=== PATIENT | female | born 1995 | race Caucasian/White ===

== ENCOUNTER 2024-07-12 12:50 | Outpatient (CLI) | payer OTHER, SELFPAY ==
--- NOTE | 2024-07-12 13:20 | ECG_ITS ---
Test Date: 2024-07-12 13:28:54 Measurements Intervals Banner Rate: 92 P: 48 SC: 147 QRS: 43 QRSD: 89 T: -7 QT: 344 QTc: 426 Interpretive Statements SINUS RHYTHM MODERATE T-WAVE ABNORMALITY, CONSIDER ANTERIOR ISCHEMIA [-0.1+ mV T WAVE IN V3/V4] No previous ECG available for comparison Electronically Signed On 07-12-2024 14:30:25 BRICK SHADER by Roby Lee M.D.
[2024-07-12 13:44] LABS: Hematocrit 41.8 % (37.0-47.0); Hemoglobin 13.9 g/dL (12.0-15.0); Mean Corpuscular HGB Conc 33.3 g/dl (32-36); Mean Corpuscular Hemoglobin 30.1 pg (26-34); Mean Corpuscular Volume 90.5 fl (80-100); Mean Platelet Volume 9.6 fl (7.4-10.4); Platelet Count Result 361 k/mm3 (150-375); Red Blood Count 4.62 M/mm3 (4.2-5.4); Red Cell Distribution Width 12.7 % (11.5-14.5); White Blood Count 6.4 K/mm3 (4.5-10.0)
[2024-07-12 13:54] LABS: Anion Gap 5 mmol/L (4-12); Blood Urea Nitrogen 19 mg/dL (7-17); Calcium 9.6 mg/dL (8.4-10.2); Carbon Dioxide 29 mmol/L (22-30); Chloride 102 mmol/L (98-107); Estimated Glomerular Filt Rate > 60; Glucose 176 mg/dL (65-110); Potassium 3.8 mmol/L (3.4-5.0); Sodium 136 mmol/L (137-145)
[2024-07-12 13:57] LABS: Add Urine Microscopic? NO; Appearance Urine Clear (Clear); Bilirubin Urine Negative (Negative); Blood Urine Negative (Negative); Color Urine Yellow (Yellow); Glucose Urine UA Negative (Negative); Ketones Urine Negative (Negative); Leukocyte Esterase Ur Negative LEU/UL (Negative); Nitrate Urine Negative (Negative); Protein Urine Negative (Negative); Specific Grav Ur 1.022 (1.001-1.035); Urobilinogen Urine 0.2 mg/dL (<2.0); pH Urine 5.5 (5.0-9.0)
[2024-07-12 13:58] LABS: Prothrombin Time 13.8 Seconds (11.1-14.7)
[2024-07-12 13:59] LABS: Partial Thromboplastin Time 23.8 Seconds (22.3-36.8)
[2024-07-12 14:00] LABS: Hemoglobin A1C 6.2 % (<5.7)
== END 2024-07-12 12:51 | disposition home or self-care (01) ==
LOC: ANHSURGERY 12:53
PROVIDERS: PCP Student in an Organized Health Care Education/Training Program; Visit Provider Neurological Surgery
DX: Z01.818 Encounter for other preprocedural examination (principal)
CPT/HCPCS: 36415; 80048; 81003; 83036; 85027; 85610; 85730; 93005

== ENCOUNTER 2024-07-16 01:54 | Day surgery (SDC) | payer OTHER, SELFPAY ==
[2024-07-07 11:43] VITALS: BMI 31.6
--- NOTE | 2024-07-07 11:51 | PC.NURSE ---
Report to the Outpatient Waiting Room, entrance under the green pavilion located off [facility], at time _0600_ on date _[id number]_. Planned Procedure Time: _0730_.? Time changes happen often and if your time is changed the preop area will call you the afternoon before. - You and your visitor will be asked to self-screen and do not enter if you have any COVID symptoms. Please call surgeon if you need to reschedule. - A mask is optional within the hospital at this time. Patients may have clear liquids (water, carbonated beverages, clear teas, apple juice) until 3 hours prior to surgery with a maximum of 20 ounces. - No food from midnight until time of surgery and no smoking. This includes no chewing gum, candy or mints. Take only the following medications with a SIP of water on the morning of surgery: __Levothyroxine and Buspirone DO NOT STOP ANY OF YOUR OTHER PRESCRIPTION MEDICATIONS PRIOR TO SURGERY EXCEPT THE FOLLOWING Medications to discontinue per physician ____No Humalog insulin evening before and morning of surgery. OK to take Lantus night before surgery.____ Please no make-up, nail amharic, hairspray, perfume, deodorant, or body powder the day of surgery.? No jewelry (including any body piercings) or valuables the day of surgery, leave them at home.? Please take a shower or bath the night before, or the morning of, surgery with an antibacterial soap.? Wear comfortable, loose fitting clothing.? - Jewelry must be removed prior to entering the operating room.? Rings and piercings that are not removed may be cut off. - The hospital will not accept responsibility for valuables.? - Please leave all valuables, including medications, at home the day of surgery. If you are going home after surgery, a licensed city bus driver must drive you home.? - NO public transportation without another adult if you receive anesthesia. - We recommend that an adult stay with you for 24 hours following discharge. - We also recommend that you do not drive, make important decision, drink alcoholic beverages, or take any drugs that were not prescribed by your health care provider for at least 24 hours after your discharge time. Follow any additional instructions given to you from your surgeon. Telephone instructions given to _Katy_and asked if any additional questions and then verbalized understanding. Patient advised to call surgeon office or pre surgery nurse liaison [phone] if any additional questions.
[2024-07-16] VITALS (9 sets, daily range): BP systolic 115–141; BP diastolic 65–93; PULSE 77–103; RESP 12–16; TEMP 36.3–36.7; O2SAT 99–100
--- NOTE | ~2024-07-16 | XR_ITS ---
EXAMINATION: XR fluoroscopy no charge DATE: 07/16/2024 09:17 INDICATION: Lumbar stenosis. Herniated disc. TECHNIQUE: A single lateral intraoperative fluoroscopic view of the lumbar spine was obtained. I was not present. Fluoroscopy exposure time was 5 seconds. COMPARISON: None. FINDINGS: There is mild lumbar spondylosis. An instrument overlies the posterior elements at L5-S1. IMPRESSION: 1. Mild lumbar spondylosis. Reviewed, dictated and finalized at location A. CTION MACHINE OPERATOR IMPRESSION: 1. Mild lumbar spondylosis.
[2024-07-16 06:54] LABS: Glucose Point of Care 129 mg/dl (65-105)
--- NOTE | 2024-07-16 07:01 | WPDHPUPDATE1 ---
History and Physical Update Update Date/Time: 07/16/24 07:01 History and Physical has been reviewed, including an updated exam of the patient. There are NO changes in the patient's condition. Risks, benefits, and alternatives have been discussed and questions answered. Patient agrees to proceed with procedure.
[2024-07-16] MEDS: LACTATED RINGERS 1,000 ML 30 ML IV CONT ×2 (07:05→09:11)
--- NOTE | 2024-07-16 07:19 | P.PNAN_ITS ---
Anes - Initial Pre Proc Eval Procedure: Operation Date: 07/16/24 07:30 Proposed Procedures p L5-S1, Bilateral Laminectomy and Discectomy - Jean Marie Schumacher MD Date/Time: 07/16/24 07:19 Surgeon: Jean Marie Schumacher MD Pre Op Diagnosis: lumbar stenosis, herniated disc Patient Data Age: 28 Gender: F Height: 1.65 m Weight: 83.3 kg Last Vital Signs Temp 36.3 C L 07/16/24 07:18 Pulse 92 07/16/24 07:18 Resp 16 07/16/24 07:18 BP 132/79 07/16/24 07:18 Pulse Ox 100 07/16/24 07:18 O2 Del Method Room Air 07/16/24 07:18 Allergies Allergy/AdvReac Type Severity Reaction Status Date / Time NSAIDS (Non-Steroidal AdvReac Intermediate Unknown Verified 07/07/24 11:41 Anti-Inflamma Home Medications Medication Instructions Recorded Confirmed Type amitriptyline 25 mg tablet 25 mg PO QHS 06/11/24 07/16/24 History buspirone 15 mg tablet 15 mg PO TID 06/11/24 07/16/24 History cyclobenzaprine 10 mg tablet 10 mg PO TID 06/11/24 07/16/24 History fenofibrate 160 mg tablet 160 mg PO DAILY 06/11/24 07/16/24 History insulin glargine 100 unit/mL (3 15 unit subcut QAM 06/11/24 07/16/24 History mL) subcutaneous pen (Lantus Solostar U-100 Insulin) insulin lispro 100 unit/mL 1 sliding scale dose subcut 06/11/24 07/16/24 History subcutaneous cartridge (Humalog USEASDIRECTD U-100 Insulin) levothyroxine 125 mcg capsule 125 mcg PO DAILY 06/11/24 07/16/24 History losartan 25 mg tablet 25 mg PO DAILY 06/11/24 07/16/24 History metformin 1,000 mg tablet 1,000 mg PO BID 06/11/24 07/16/24 History pantoprazole 40 mg tablet,delayed 40 mg PO QHS 06/11/24 07/16/24 History release semaglutide 2 mg/dose (8 mg/3 mL) 2 mg subcut WEEKLY 06/11/24 07/16/24 History subcutaneous pen injector (Ozempic) sertraline 100 mg tablet 100 mg PO DAILY 06/11/24 07/16/24 History Laboratory Tests 07/16/24 06:51 POC Capillary Glucose 129 H mg/dl (65-105) Patient hx anesthesia problems: none Family hx anesthesia problems: none Results Review: All pre-operative results and documents have been reviewed as part of the pre- operative evaluation. [facility] Past Medical History Medical History Asthma Depression Diabetes Fibromyalgia GERD (gastroesophageal reflux disease) Hypolipidemia Kidney disease Migraines Thyroid disorder Social History Social History Smoking status: Never smoker Substance use: never Living arrangements: with family Spiritual care concerns: No Anes - Eval Final PreProcedure Day of Procedure 07/16/24 07:19 Patient weight: obese Heart: regular rate and rhythm Lungs: clear to auscultation Airway: Mallampati scale class II Neurological: alert and oriented Last oral intake: >/= 8 hours ASA classification: III Emergent: no Anesthetic plan: proceed Anesthesia type and monitoring: general ETT and standard monitoring Results Review: All pre-operative results and documents have been reviewed as part of the pre- operative evaluation. Informed Consent: The patient's anesthetic plan and its attendant risks and benefits were discussed with the patient/family/POA. Questions were solicited and answers provided to the satisfaction of the patient/family/POA.
[2024-07-16] MEDS: ceFAZolin 2 GM/D5W 50 ML 2 GM/50 ML BAG IVPB (07:23)
[2024-07-16 07:30] LABS: BEDSIDEPREGUCG Negative (Negative)
[2024-07-16] MEDS: LIDO 1%/EPINEPHRINE 1:100,000 50 ML VIAL 10 ML INFILTRATE (08:06)
[2024-07-16 09:19] LABS: Glucose Point of Care 204 mg/dl (65-105)
[2024-07-16 09:19] LABS: Glucose Point of Care 203 mg/dl (65-105)
[2024-07-16] MEDS: INSULIN HUMAN REGULAR (*BKC) 100 UNITS/ML 6 UNITS IV PUSH (09:25)
[2024-07-16] MEDS: oxyCODONE HCL (*CRX) 5 MG TAB IR PO (10:20)
--- NOTE | 2024-07-16 10:25 | SUR.PHASEII ---
Dr. Schumacher aware of minimal drainage and said to apply gauze and tape. Then to instruct patient to remove dressing tomorrow.
[2024-07-16 10:36] LABS: Glucose Point of Care 178 mg/dl (65-105)
--- NOTE | 2024-07-16 13:12 | W.PM.PROC2 ---
Procedure Note - Detailed Date of Procedure 07/16/24 Pre-op Diagnosis lumbar stenosis, herniated disc Post-op Diagnosis Same Procedure Performed Bilateral lumbar laminectomy, left-sided L5-S1 microdiskectomy, Use of operating microscope with microdissection 99904, [id number] Surgeon Jean Marie Schumacher MD Anesthesia General Indications lumbar radiculopathy Findings large disc herniation Description of Procedure patient was brought into the operating room turned over Anesthesia intubation. Once this was complete she was positioned onto the Delio frame and all bony prominences were padded. Delio frame was cranked so that she was placed into flexion. Fluoroscopy was brought in and confirmed the L5-S1 level an incision was marked. Patient was then sterilely prepped and draped in the usual fashion. Final time-out was performed to indicate correct patient procedure and site. Following this local anesthetic was placed along the incision line. I then made a midline incision and used Bovie electrocautery to move through the subcutaneous fat to the fascia. This was then opened and the soft tissue was displaced from the lamina and retractors were were placed. At this point fluoroscopy was brought in again and the L5-S1 was again localized with a upgoing curette underneath the lamina of L5. I then brought in the microscope used it for the remainder of the case. The curette was removed and right curettes were used to remove the spinous process and an upgoing curette was used to move underneath the lamina. Curettes were then used to open up the lamina bilaterally. Once the ligamentum flavum was removed i.e. immediately noticed the thecal sac and the disc herniation on the left side. I had attempted to create a plane over the disc herniation and underneath the thecal sac however the thecal sac was very adherent to the disc therefore I chose to bipolar cauterize the disc and entered the disc with an 11 blade this was then removed in piecemeal to debulk the center of the disc. Care was taken to not go too deep as the traversing S1 nerve root was beneath the disc herniation. I was able to carefully remove several large portions of disc at which point I was able to mobilize the shell of the disc and free it from the traversing S1 nerve root the left side. I then used a nerve hook to go above and below disc to folded in and again removed additional disc bulge. At this point the disc was mostly removed there were some small fragments that I was unable to as was very adherent to the dura the thecal sac and the traversing left S1 nerve root were free from compression. The wound was irrigated hemostasis was obtained and wound was closed in layers. The patient was then turned over to anesthesia for extubation. There were no complications during the surgery. Estimated Blood Loss 50 [facility] Billing Surgery - Charge Forward: Surgery Billing
== END 2024-07-16 11:00 | disposition home or self-care (01) ==
PROVIDERS: PCP Student in an Organized Health Care Education/Training Program; Visit Provider Neurological Surgery
PROC: (CPT 63005; principal; 2024-07-16 07:30)
DX: M51.16 Intervertebral disc disorders with radiculopathy, lumbar region (principal); M48.061 Spinal stenosis, lumbar region without neurogenic claudication; E11.9 Type 2 diabetes mellitus without complications; Z79.4 Long term (current) use of insulin; Z79.84 Long term (current) use of oral hypoglycemic drugs
CPT/HCPCS: 63047; 82948; 99199; A9270; J0690; J1100; J1171; J1200; J1815; J2004; J2250; J2405; J2704; J3010; J7120

== ENCOUNTER 2024-10-05 13:46 | Outpatient (CLI) | payer OTHER, SELFPAY ==
--- OUTSIDE RECORDS SUMMARY | 2024-10-05 15:47 | XMS_ITS | Encounter Summary ---
Author Organization [facility] Address [address] [facility] [place] [address] Phone Care Team Providers Care Education Paraprofessional Name Role Phone Fco Llanes MD Primary Care Provider [phone] Uche Haley MD Unavailable [phone] Della Whaley DO Primary Care Provider [phone] Reason for Visit * Reason Comments Medication Refill Encounter Details Date Type Department Care Team (Late st Contact Info) Description 11/24/2021 Refill [facility] - Family Medicine [facility] [address] [place] [phone] Fco Llanes MD [address] [place] [address] Medication Refill Social History Tobacco Use Types Packs/Day Years Used Date Smoking Tobacco: Never Smokeless Tobacco: Never Alcohol Use Standard Drinks/Week Comments No 0 (1 standard drink = 0.6 oz pur e alcohol) PHQ-2 Answer Date Recorded Total Score - Questions 1-9 5 03/2022 Education Answer Date Recorded What is the highest level of school you have completed or the highest degree you have received? Some college, no degree 03/30/2021 Sexually Active Control Partners Comments Not Currently Comments No Sex and Gender Information Value Date Recorded Sex Assigned at Female 07/10/2023 4:42 AM DEPENDENCY COUNSELOR Legal Sex Female 3:32 PM DEPENDENCY COUNSELOR Gender Identity Female 07/10/2023 4:42 AM DEPENDENCY COUNSELOR Sexual Orientation Straight 07/10/2023 4: 42 AM DEPENDENCY COUNSELOR COVID-19 Exposure Response Date Recorded In the last 10 days, have yo u been in contact with someone who was confirmed or suspected to have Coronavirus/COVID-19? No / Unsure 11/26/2021 4:29 PM CDT documented as of this encounter Miscellaneous Notes * Telephone Encounter - Beatrice Cid RN - 11/26/2021 10:29 AM CDT Medication failed the protocol, provider to review and approve the medication order if appropriate. Requested Prescriptions Pending Prescriptions Disp Refills Januvia 100 MG Tablet [Pharmacy Med Name: JANUVIA 100MG TABLETS] 30 Tablet 2 Sig: TAKE 1 TABLET BY MOUTH DAILY DPP-4 Inhibitors Protocol Failed - 11/24/2021 9:38 AM Failed - GFR on record in past 6 months GFR, EST. NONAFRICAN Date Value Ref Range Status 03/30/2021 >60 >=60 Final Passed - Visit with relevant provider in past 6 months or upcoming 90 days Recent Visits Date Type Provider Dept 11/16/21 Office Visit Fco Llanes MD [facility] [place] Showing recent visits within past 182 days and meeting all other requirements Future Appointments Date Type Provider Dept 02/15/22 Appointment Fco Llanes MD [facility] Showing future appointments within next 90 days and meeting all other requirements Passed - HgA1C on record in the past 6 months HGB-A1C Date Value Ref Range Status 11/16/2021 9.0 (A) 4 - 6 Final documented in this encounter Plan of Treatment Upcoming Encounters Date Type Department Care Team (Late st Contact Info) Description 10/11/2024 1:15 PM DEPENDENCY COUNSELOR Office Visit [facility] - Family Medicine - [place] [address] [place] [address] Della Whaley, DO [address] [facility] [address] [place] [address] documented as of this encounter Visit Diagnoses Not on filedocumented in this encounter Additional Health Concerns Infection Onset Date Last Indicated Resolved Time COVID - 19 11/26/2021 11/26/2021 12/16/2021 12:1 7 AM CDT Assessment Noted Time PHQ-9 Depression Total Score: 5 11/17/19 22 9:00 AM CDT documented as of this encounter Care Teams Education Paraprofessional Relationship Specialty Start Date End Date Fco Llanes MD PCP - General Family Medicine 07/14/20 01/28/24 Della Whaley DO [address] [place] [address] PCP - General Family Medicine 01/30/24 Uche Halye MD [address] [facility] [facility] [address] [place] [address] Consulting Physician General Surgery 02/21/23 documented as of this encounter
--- OUTSIDE RECORDS SUMMARY | 2024-10-05 15:48 | XMS_ITS | Encounter Summary ---
Author Organization [facility] Address [address] [facility] [place] [address] Phone Care Team Providers Care Teacher Of The Deaf/Hard Of Hearing Name Role Phone Fco Llanes MD Primary Care Provider [phone] Uche Haley MD Unavailable [phone] Della Whaley DO Primary Care Provider [phone] Reason for Visit * Reason Comments Medication Refill Encounter Details Date Type Department Care Team (Late st Contact Info) Description 10/25/2021 Refill [facility] - Family Medicine [facility] [address] [place] [phone] Fco Llanes MD [address] [place] [address] Medication Refill Social History Tobacco Use Types Packs/Day Years Used Date Smoking Tobacco: Never Smokeless Tobacco: Never Alcohol Use Standard Drinks/Week Comments No 0 (1 standard drink = 0.6 oz pur e alcohol) PHQ-2 Answer Date Recorded Total Score - Questions 1-9 14 07/11 Education Answer Date Recorded What is the highest level of school you have completed or the highest degree you have received? Some college, no degree 03/30/2021 Sexually Active Control Partners Comments Not Currently Comments No Sex and Gender Information Value Date Recorded Sex Assigned at Female 07/10/2023 4:42 AM JACK TAMP OPERATOR Legal Sex Female 3:32 PM JACK TAMP OPERATOR Gender Identity Female 07/10/2023 4:42 AM JACK TAMP OPERATOR Sexual Orientation Straight 07/10/2023 4: 42 AM JACK TAMP OPERATOR documented as of this encounter Miscellaneous Notes * Telephone Encounter - Fco Llanes MD - 10/25/2021 6:06 PM CDT I know that she has scheduled an appointmnet but she has done this in the past and has not come. She needs to be seen a lot more frequent. She is diabetic also. I am not filling anything until she comes in. * Telephone Encounter - Beatrice Cid RN - 10/25/2021 1:23 PM CDT Medication failed the protocol, provider to review and approve the medication order if appropriate. Requested Prescriptions Pending Prescriptions Disp Refills sertraline (ZOLOFT) 50 MG Tablet [Pharmacy Med Name: SERTRALINE 50MG TABLETS] 30 Tablet 1 Sig: TAKE 1 TABLET BY MOUTH DAILY SSRI (6 Month Refill Only) Protocol Failed - 10/25/2021 5:42 AM Failed - Has an encounter in the past 6 months with a depression, anxiety, adjustment disorder, OCD, or PTSD visit diagnosis Passed - No test in the past 12 months or most recent test was negative Passed - No active on record Passed - Visit with relevant provider in past 6 months or upcoming 90 days Recent Visits No visits were found meeting these conditions. Showing recent visits within past 182 days and meeting all other requirements Future Appointments Date Type Provider Dept 11/09/21 Appointment Fco Llanes MD [facility] [place] Showing future appointments within next 90 days and meeting all other requirements Passed - Patient has established therapy with SSRI for at least 6 months documented in this encounter Plan of Treatment Upcoming Encounters Date Type Department Care Team (Late st Contact Info) Description 10/11/2024 1:15 PM JACK TAMP OPERATOR Office Visit [facility] - Family Medicine - [place] [address] [place] [address] Della Whaley DO 2 [facility] [address] [place] [address] documented as of this encounter Visit Diagnoses Diagnosis Major depressive episode Major depressive disorder, single episode, unspecified documented in this encounter Additional Health Concerns Infection Onset Date Last Indicated Resolved Time COVID - 19 11/26/2021 11/26/2021 12/16/2021 12:1 7 AM CDT Assessment Noted Time PHQ-9 Depression Total Score: 14 020 9:39 AM JACK TAMP OPERATOR documented as of this encounter Care Teams Teacher Of The Deaf/Hard Of Hearing Relationship Specialty Start Date End Date Fco Llanes MD PCP - General Family Medicine 07/14/20 01/28/24 Della Whaley DO [address] [facility] [address] [place] [address] PCP - General Family Medicine 01/30/24 Uche Haley MD [address] [address] Consulting Physician General Surgery 02/21/23 documented as of this encounter
--- OUTSIDE RECORDS SUMMARY | 2024-10-05 15:48 | XMS_ITS | Encounter Summary ---
Author Organization [facility] Address [address] [facility] [place] [address] Phone Care Team Providers Care Environmental Protection Specialist Name Role Phone Fco Llanes MD Primary Care Provider [phone] Uche Haley MD Unavailable Della Whaley DO Primary Care Provider [phone] Reason for Visit * Reason Comments Medication Refill Encounter Details Date Type Department Care Team (Late st Contact Info) Description 01/08/2021 Refill [facility] - Family Medicine [facility] [address] [place] [phone] Fco Llanes MD [address] [place] [address] Medication Refill Social History Tobacco Use Types Packs/Day Years Used Date Smoking Tobacco: Never Smokeless Tobacco: Never Alcohol Use Standard Drinks/Week Comments No 0 (1 standard drink = 0.6 oz pur e alcohol) PHQ-2 Answer Date Recorded Total Score - Questions 1-9 14 07/11 Comments No Sex and Gender Information Value Date Recorded Sex Assigned at Female 07/10/2023 4:42 AM DECAL APPLIER Legal Sex Female 3:32 PM DECAL APPLIER Gender Identity Female 07/10/2023 4:42 AM DECAL APPLIER Sexual Orientation Straight 07/10/2023 4: 42 AM DECAL APPLIER documented as of this encounter Miscellaneous Notes * Telephone Encounter - Beatrice Cid RN - 01/09/2021 3:56 PM CDT Medication failed the protocol, provider to review and approve the medication order if appropriate. Requested Prescriptions Pending Prescriptions Disp Refills busPIRone (BUSPAR) 10 MG Tablet [Pharmacy Med Name: BUSPIRONE 10MG TABLETS] 90 Tablet 2 Sig: TAKE 1 TABLET BY MOUTH THREE TIMES DAILY Buspirone (6 Month Refill Only) Protocol Failed - 01/08/2021 4:00 AM Failed - Patient has established therapy with Buspirone for at least 6 months Passed - No test in the past 12 months or most recent test was negative Passed - No active on record Passed - Visit with relevant provider in past 6 months or upcoming 90 days Recent Visits Date Type Provider Dept 11/03/20 Office Visit Fco Llanes MD [facility] 07/21/20 Office Visit Fco Llanes MD [facility] Showing recent visits within past 182 days and meeting all other requirements Future Appointments Date Type Provider Dept 02/05/21 Appointment Fco Llanes MD [facility] Showing future appointments within next 90 days and meeting all other requirements Passed - Has an encounter in the past 6 months with a depression or anxiety visit diagnosis healthfinch Not Delegated - Psychiatry: Anxiolytics/Hypnotics Failed - 01/08/2021 4:00 AM Failed - This refill cannot be delegated Passed - Valid encounter within last 6 months Past Office Visits Recent Outpatient Visits 2 months ago Type 2 diabetes mellitus without complication, without long-term current use of insulin ([facility] - Family [facility] Fco Tian MD 5 months ago Type 2 diabetes mellitus without complication, without long-term current use of insulin ([facility]) [facility] Family [facility] Fco Tian MD Upcoming Appointments Future Appointments In 3 weeks [facility] Gilberto Walters [facility] FIRE MANAGER - Recent and Past Visits Recent Visits Date Type Provider Dept 11/03/20 Office Visit Fco Llanes MD [facility] 07/21/20 Office Visit Fco Llanes MD [facility] Showing recent visits within past 460 days with a meds authorizing provider and meeting all other requirements Future Appointments Date Type Provider Dept 02/05/21 Appointment Fco Llanes MD [facility] Showing future appointments within next 90 days with a meds authorizing provider and meeting all other requirements documented in this encounter Plan of Treatment Upcoming Encounters Date Type Department Care Team (Late st Contact Info) Description 10/11/2024 1:15 PM DECAL APPLIER Office Visit [facility] - Family Medicine - [place] [address] [place] [phone] Della Whaley DO [address] [facility] [address] [address] documented as of this encounter Visit Diagnoses Diagnosis Major depressive episode Major depressive disorder, single episode, unspecified documented in this encounter Additional Health Concerns Infection Onset Date Last Indicated Resolved Time COVID - 19 11/26/2021 11/26/2021 12/16/2021 12:1 7 AM CDT Assessment Noted Time PHQ-9 Depression Total Score: 14 020 9:39 AM DECAL APPLIER documented as of this encounter Care Teams Environmental Protection Specialist Relationship Specialty Start Date End Date Fco Llanes MD PCP - General Family Medicine 07/14/20 01/28/24 Della Whaley DO [address] [facility] [facility] [address] [place] [address] PCP - General Family Medicine 01/30/24 Uche Haley MD [id number] [address] Consulting Physician General Surgery 02/21/23 documented as of this encounter
--- OUTSIDE RECORDS SUMMARY | 2024-10-05 15:48 | XMS_ITS | Encounter Summary ---
Author Organization [facility] Address [address] [facility] [place] [address] Phone Care Team Providers Care Corporate Compliance Director Name Role Phone Fco Llanes MD Primary Care Provider [phone] Uche Haley MD Unavailable [phone] Della Whaley DO Primary Care Provider [phone] Reason for Visit * Reason Comments Medication Refill Encounter Details Date Type Department Care Team (Late st Contact Info) Description 12/04/2023 Refill [facility] - Family Medicine [facility] [address] [place] [phone] Fco Llanes MD [address] [place] [address] Medication Refill Social History Tobacco Use Types [...] you have received? Some college, no degree 09/16/2022 Sexually Active Control Partners Comments Not Currently Comments No Sex and Gender Information Value Date Recorded Sex Assigned at Female 07/10/2023 4:42 AM JEWEL BEARING DRILLER Legal Sex Female 3:32 PM JEWEL BEARING DRILLER Gender Identity Female 07/10/2023 4:42 AM JEWEL BEARING DRILLER Sexual Orientation Straight 07/10/2023 4: 42 AM JEWEL BEARING DRILLER documented as of this encounter Miscellaneous Notes * Telephone Encounter - Karen Gabriel RN - 12/04/2023 11:35 AM CDT Medication(s) refilled and signed per [facility] Chronic Medication Refill Standing Order for Pediatricand Adult Patients. Requested Prescriptions Pending Prescriptions Disp Refills Ozempic, 2 MG/DOSE, 8 MG/3ML Solution Pen-injector [Pharmacy Med Name: OZEMPIC 2MG PER DOSE (8MG/3ML) PFP] 3 mL 0 Sig: INJECT 2 MG UNDER THE SKIN ONE DAY A WEEK GLP-1 Agonists Protocol Passed - 12/04/2023 7:45 AM Passed - Lipid panel result on file in past 12 months LDL Date Value Ref Range Status 09/26/2023 64 <130 mg/dL Final HDL CHOLESTEROL Date Value Ref Range Status 09/26/2023 43 >40 mg/dL Final CHOLESTEROL Date Value Ref Range Status 09/26/2023 162 <200 mg/dL Final TRIGLYCERIDES Date Value Ref Range Status 09/26/2023 276 (H) <150 mg/dL Final VLDL Date Value Ref Range Status 09/26/2023 55 (H) 10 - 50 mg/dL Final CHOL/HDL RATIO Date Value Ref Range Status 09/26/2023 3.8 0.0 - 4.4 Final NON-HDL CHOLESTEROL Date Value Ref Range Status 09/26/2023 119 <130 mg/dL Final Passed - Visit with relevant provider in past 6 months or upcoming 90 days Recent Visits Date Type Provider Dept 09/26/23 Office Visit Fco Llanse MD [facility] Showing recent visits within past 182 days and meeting all other requirements Future Appointments Date Type Provider Dept 01/30/24 Appointment Fco Llanes MD [facility] Showing future appointments within next 90 days and meeting all other requirements Passed - HgA1C result on record in past 6 months HGB-A1C Date Value Ref Range Status 09/26/2023 6.7 (A) 4 - 6 % Final Passed - GFR on record in past 6 months GFR, EST. NONAFRICAN Date Value Ref Range Status 09/26/2023 >60 >=60 Final documented in this encounter Plan of Treatment Upcoming Encounters Date Type Department Care Team (Late st Contact Info) Description 10/11/2024 1:15 PM JEWEL BEARING DRILLER Office Visit [facility] - [facility] Medicine - [place] [address] [place] [address] Della Whaley DO 2 [facility] [address] [place] [address] documented as of this encounter Visit Diagnoses Not on filedocumented in this encounter Additional Health Concerns Assessment Noted Time PHQ-9 Depression Total Score: 5 11/17/19 22 9:00 AM CDT documented as of this encounter Care Teams Corporate Compliance Director Relationship Specialty Start Date End Date Fco Llanes MD PCP - General Family Medicine 07/14/20 01/28/24 Della Whaley DO 2 [facility] [address] [place] [address] PCP - General Family Medicine 01/30/24 Uche Haley MD [address] [address] Consulting Physician General Surgery 02/21/23 documented as of this encounter
--- OUTSIDE RECORDS SUMMARY | 2024-10-05 15:48 | XMS_ITS | Encounter Summary ---
Author Organization [facility] Address [address] [facility] [place] [address] Phone Care Team Providers Care Food Cooking Machine Operator Name Role Phone Fco Llanes MD Primary Care Provider [phone] Uche Haley MD Unavailable [phone] Della Whaley DO Primary Care Provider Reason for Visit * Reason Comments Medication Refill Encounter Details Date Type Department Care Team (Late st Contact Info) Description 09/06/2021 Refill [facility] Medical Group - Family Medicine [facility] #2 [place] [phone] Fco Llanes MD [address]1 [place] [address] Medication Refill Social History Tobacco Use Types [...] Sex Assigned at Female 07/10/2023 4:42 AM FUEL CELL ENGINEER Legal Sex Female 3:32 PM FUEL CELL ENGINEER Gender Identity Female 07/10/2023 4:42 AM FUEL CELL ENGINEER Sexual Orientation Straight 07/10/2023 4: 42 AM FUEL CELL ENGINEER documented as of this encounter Miscellaneous Notes * Telephone Encounter - Beatrice Cid RN - 09/06/2021 11:36 AM CST PDMP 08/01/21 Medication failed the protocol, provider to review and approve the medication order if appropriate. Requested Prescriptions Pending Prescriptions Disp Refills fish oil-omega-3 fatty acids 1000 MG Capsule [Pharmacy Med Name: FISH OIL 1000MG CAPSULES] 60 Capsule 2 Sig: TAKE 2 CAPSULES BY MOUTH DAILY Not Delegated - Off Protocol Failed - 09/06/2021 11:36 AM Failed - This refill cannot be delegated Passed - Visit with relevant provider in past 12 months or upcoming 90 days Recent Visits Date Type Provider Dept 03/30/21 Office Visit Fco Llanes MD [facility] 11/03/20 Office Visit Fco Llanes MD [facility] Showing recent visits within past 365 days and meeting all other requirements Future Appointments Date Type Provider Dept 09/07/21 Appointment Fco Llanes MD [facility] Showing future appointments within next 90 days and meeting all other requirements zolpidem (AMBIEN) 10 MG Tablet [Pharmacy Med Name: ZOLPIDEM 10MG TABLETS] 30 Tablet 0 Sig: TAKE 1 TABLET BY MOUTH EVERY NIGHT NEEDED FOR SLEEP Not Delegated - Off Protocol Failed - 09/06/2021 11:36 AM Failed - This refill cannot be delegated Passed - Visit with relevant provider in past 12 months or upcoming 90 days Recent Visits Date Type Provider Dept 03/30/21 Office Visit Fco Llanes MD [facility] 11/03/20 Office Visit Fco Llanes MD [facility] Showing recent visits within past 365 days and meeting all other requirements Future Appointments Date Type Provider Dept 09/07/21 Appointment Fco Llanes MD [facility] Showing future appointments within next 90 days and meeting all other requirements CELL ENGINEER documented in this encounter Plan of Treatment Upcoming Encounters Date Type Department Care Team (Late st Contact Info) Description 10/11/2024 1:15 PM FUEL CELL ENGINEER Office Visit [facility] Medical Group - Family [facility] [address] [place] [address] Della Whaley DO [address] [facility] [facility] [address] [place] [address] documented as of this encounter Visit Diagnoses Diagnosis Insomnia, unspecified type documented in this encounter Additional Health Concerns Infection Onset Date Last Indicated Resolved Time COVID - 19 11/26/2021 11/26/2021 12/16/2021 12:1 7 AM CDT Assessment Noted Time PHQ-9 Depression Total Score: 14 020 9:39 AM FUEL CELL ENGINEER documented as of this encounter Care Teams Food Cooking Machine Operator Relationship Specialty Start Date End Date Fco Llanes MD PCP - General Family Medicine 07/14/20 01/28/24 Della Whaley DO [address] [address] PCP - General Family Medicine 01/30/24 Uche Haley MD #[address] [address] Consulting Physician General Surgery 02/21/23 documented as of this encounter
--- OUTSIDE RECORDS SUMMARY | 2024-10-05 15:48 | XMS_ITS | Encounter Summary ---
Author Organization [facility] Address [address] [facility] [place] [address] Phone Care Team Providers Care Criminal Legal Assistant Name Role Phone Fco Llanes MD Primary Care Provider [phone] Uche Haley MD Unavailable [phone] Della Whaley DO Primary Care Provider [phone] Reason for Visit * Reason Comments Medication Refill Encounter Details Date Type Department Care Team (Late st Contact Info) Description 03/14/2022 Refill [facility] Medical Group - Family Medicine [facility] [address]2 [place] [phone] Fco Llanes MD [address] [place] [address] Medication Refill Social History Tobacco Use Types [...] Sex Assigned at Female 07/10/2023 4:42 AM ADMINISTRATION PHYSICIAN Legal Sex Female 3:32 PM ADMINISTRATION PHYSICIAN Gender Identity Female 07/10/2023 4:42 AM ADMINISTRATION PHYSICIAN Sexual Orientation Straight 07/10/2023 4: 42 AM ADMINISTRATION PHYSICIAN documented as of this encounter Miscellaneous Notes * Telephone Encounter - Judy Vidal RN - 03/14/2022 10:08 AM CDT PDMP 02/14/22 * Telephone Encounter - Judy Vidal RN - 03/14/2022 10:07 AM CDT Medication failed the protocol, provider to review and approve the medication order if appropriate. Requested Prescriptions Pending Prescriptions Disp Refills zolpidem (AMBIEN) 10 MG Tablet [Pharmacy Med Name: ZOLPIDEM 10MG TABLETS] 30 Tablet 0 Sig: TAKE 1 TABLET BY MOUTH EVERY NIGHT NEEDED FOR SLEEP Not Delegated - Off Protocol Failed - 03/14/2022 5:26 AM Failed - This refill cannot be delegated Passed - Visit with relevant provider in past 12 months or upcoming 90 days Recent Visits Date Type Provider Dept 11/16/21 Office Visit Fco Llanes MD [facility] 03/30/21 Office Visit Fco Llanes MD [facility] Showing recent visits within past 365 days and meeting all other requirements Future Appointments Date Type Provider Dept 03/18/22 Appointment Fco Llanes MD [facility] Showing future appointments within next 90 days and meeting all other requirements documented in this encounter Plan of Treatment Upcoming Encounters Date Type Department Care Team (Late st Contact Info) Description 10/11/2024 1:15 PM ADMINISTRATION PHYSICIAN Office Visit [facility] Medical Group - Family Medicine - [place] [address] [place] [address] Della Whaley, DO [address] [address] documented as of this encounter Visit Diagnoses Diagnosis Insomnia, unspecified type documented in this encounter Additional Health Concerns Assessment Noted Time PHQ-9 Depression Total Score: 5 11/17/19 22 9:00 AM CDT documented as of this encounter Care Teams Criminal Legal Assistant Relationship Specialty Start Date End Date Fco Llanes MD PCP - General Family Medicine 07/14/20 01/28/24 Della Whaley DO [address] [facility] [address] [place] [address] PCP - General Family Medicine 01/30/24 Uche Haley MD [address] [facility] [address] [place] [address] Consulting Physician General Surgery 02/21/23 documented as of this encounter
--- OUTSIDE RECORDS SUMMARY | 2024-10-05 15:48 | XMS_ITS | Encounter Summary ---
Author Organization [facility] Address [address] [facility] [place] [address] Phone Care Team Providers Care Tool Trouble Shooter Name Role Phone Fco Llanes MD Primary Care Provider [phone] Uche Haley MD Unavailable [phone] Della Whaley DO Primary Care Provider [phone] Reason for Visit * Reason Comments Medication Refill Encounter Details Date Type Department Care Team (Late st Contact Info) Description 12/27/2023 Refill [facility] Medical Group - Family Medicine [facility] #2 [place] [address] Fco Llanes MD [address] [place] [address] Medication Refill Social History Tobacco Use Types [...] Sex Assigned at Female 07/10/2023 4:42 AM CARBON SEQUESTRATION PLANT ENGINEER Legal Sex Female 3:32 PM CARBON SEQUESTRATION PLANT ENGINEER Gender Identity Female 07/10/2023 4:42 AM CARBON SEQUESTRATION PLANT ENGINEER Sexual Orientation Straight 07/10/2023 4: 42 AM CARBON SEQUESTRATION PLANT ENGINEER documented as of this encounter Miscellaneous Notes * Telephone Encounter - Evangelina Soler RN - 12/28/2023 2:34 PM CDT Medication(s) refilled and signed per [facility] Chronic Medication Refill Standing Order for Pediatricand Adult Patients. Requested Prescriptions Pending Prescriptions Disp Refills glimepiride (AMARYL) 4 MG Tablet [Pharmacy Med Name: GLIMEPIRIDE 4MG TABLETS] 90 Tablet 3 Sig: TAKE 1 TABLET BY MOUTH EVERY MORNING Sulfonylureas Protocol Passed - 12/27/2023 9:19 AM Passed - Visit with relevant provider in past 6 months or upcoming 90 days Recent Visits Date Type Provider Dept 12/18/23 Office Visit Valdo Florence APRN, [facility] 09/26/23 Office Visit Fco Llanes MD [facility] Showing recent visits within past 182 days and meeting all other requirements Future Appointments Date Type Provider Dept 01/30/24 Appointment Della Wh[facility] DO [facility] Show[facility] future appointments within next 90 days and meeting all other requirements Passed - HgA1C on record in past 6 months HGB-A1C Date Value Ref Range Status 09/26/2023 6.7 (A) 4 - 6 % Final Passed - GFR on record in past 6 months GFR, EST. NONAFRICAN Date Value Ref Range Status 09/26/2023 >60 >=60 Final documented in this encounter Plan of Treatment Upcoming Encounters Date Type Department Care Team (Late st Contact Info) Description 10/11/2024 1:15 PM CARBON SEQUESTRATION PLANT ENGINEER Office Visit [facility] Medical Group - Family Medicine - [place] [address] [place] [address] Della Whaley DO 2 [facility] [address] [address] documented as of this encounter Visit Diagnoses Not on filedocumented in this encounter Additional Health Concerns Assessment Noted Time PHQ-9 Depression Total Score: 5 11/17/19 22 9:00 AM CDT documented as of this encounter Care Teams Tool Trouble Shooter Relationship Specialty Start Date End Date Fco Llanes MD PCP - General Family Medicine 07/14/20 01/28/24 Della Whaley DO [address] [facility] [address] [address] [place] [address] PCP - General Family Medicine 01/30/24 Uche H[facility] MD [facility] [address] [place] [address] Consulting Physician General Surgery 02/21/23 documented as of this encounter
--- OUTSIDE RECORDS SUMMARY | 2024-10-05 15:48 | XMS_ITS | Encounter Summary ---
Author Organization [facility] Address [address] [facility] [place] [address] Phone Care Team Providers Care Manager Radiation Name Role Phone Fco Llanes MD Primary Care Provider [phone] Uche Haley MD Unavailable [phone] Della Whaley DO Primary Care Provider [phone] Reason for Visit * Reason Comments Medication Refill Encounter Details Date Type Department Care Team (Late st Contact Info) Description 01/12/2021 Refill [facility] Medical Group - Family Medicine [facility] [address]2 [place] [phone] Fco Llanes MD [address] [place] [address] Medication Refill Social History Tobacco Use Types Packs/Day Years Used Date Smoking Tobacco: Never Smokeless Tobacco: Never Alcohol Use Standard Drinks/Week Comments No 0 (1 standard drink = 0.6 oz pur e alcohol) PHQ-2 Answer Date Recorded Total Score - Questions 1-9 14 07/11 Comments No Sex and Gender Information Value Date Recorded Sex Assigned at Female 07/10/2023 4:42 AM PLUGGER Legal Sex Female 3:32 PM PLUGGER Gender Identity Female 07/10/2023 4:42 AM PLUGGER Sexual Orientation Straight 07/10/2023 4: 42 AM PLUGGER documented as of this encounter Miscellaneous Notes * Telephone Encounter - Beatrice Cid RN - 01/12/2021 3:07 PM CDT Medication failed the protocol, provider to review and approve the medication order if appropriate. Requested Prescriptions Pending Prescriptions Disp Refills metFORMIN (GLUCOPHAGE) 500 MG Tablet [Pharmacy Med Name: METFORMIN 500MG TABLETS] 180 Tablet 3 Sig: TAKE 2 TABLETS BY MOUTH TWICE DAILY WITH MEALS Biguanides Protocol Failed - 01/12/2021 3:59 AM Failed - GFR on record in past 6 months Passed - Visit with relevant provider in [...] months HGB-A1C Date Value Ref Range Status 07/21/2020 10.5 (H) 4.0 - 6.0 % Final documented in this encounter Plan of Treatment Upcoming Encounters Date Type Department Care Team (Late st Contact Info) Description 10/11/2024 1:15 PM PLUGGER Office Visit [facility] Medical Group - Family Medicine - [place] [address] [place] [address] Della Whaley, DO 2 [facility]. [address] [place] [address] documented as of this encounter Visit Diagnoses Not on filedocumented in this encounter Additional Health Concerns Infection Onset Date Last Indicated Resolved Time COVID - 19 11/26/2021 11/26/2021 12/16/2021 12:1 7 AM CDT Assessment Noted Time PHQ-9 Depression Total Score: 14 020 9:39 AM PLUGGER documented as of this encounter Care Teams Manager Radiation Relationship Specialty Start Date End Date Fco Llanes MD PCP - General Family Medicine 07/14/20 01/28/24 Della Whaley DO [address] [facility] [address] [facility] [address] [place], [place] [phone] PCP - General Family Medicine 01/30/24 Uche Haley MD [address] [address] Consulting Physician General Surgery 02/21/23 documented as of this encounter
--- OUTSIDE RECORDS SUMMARY | 2024-10-05 15:48 | XMS_ITS | Encounter Summary ---
Author Organization [facility] Address [address] [facility] [place] [address] Phone Care Team Providers Care Transformer Assembler Name Role Phone Fco Llanes MD Primary Care Provider [phone] Uche Haley MD Unavailable [phone] Della Whaley DO Primary Care Provider [phone] Reason for Visit * Reason Comments Medication Refill Encounter Details Date Type Department Care Team (Late st Contact Info) Description 05/13/[address] [facility] Medical Group - Family Medicine [facility] #[address] [place] [address] Fco Llanes MD #1 [place] [address] Medication Refill Social History Tobacco Use Types [...] or the highest degree you have received? GED or equivalent 03/2022 Sexually Active Control Partners Comments Not Currently Comments No Sex and Gender Information Value Date Recorded Sex Assigned at Female 07/10/2023 4:42 AM TYPEWRITER ASSEMBLER Legal Sex Female 3:32 PM TYPEWRITER ASSEMBLER Gender Identity Female 07/10/2023 4:42 AM TYPEWRITER ASSEMBLER Sexual Orientation Straight 07/10/2023 4: 42 AM TYPEWRITER ASSEMBLER documented as of this encounter Miscellaneous Notes * Telephone Encounter - Beatrice Cid RN - 05/14/2022 8:43 AM CDT Medication failed the protocol, provider to review and approve the medication order if appropriate. Requested Prescriptions Pending Prescriptions Disp Refills Januvia 100 MG Tablet [Pharmacy Med Name: JANUVIA 100MG TABLETS] 30 Tablet 5 Sig: TAKE 1 TABLET BY MOUTH DAILY DPP-4 Inhibitors Protocol Failed - 05/13/2022 11:54 AM Failed - GFR on record in [...] requirements Future Appointments Date Type Provider Dept 05/17/22 Appointment Fco Llanes MD [facility] Showing future appointments within next 90 days and meeting all other requirements Passed - HgA1C on record in the past 6 months HGB-A1C Date Value Ref Range Status 11/16/2021 9.0 (A) 4 - 6 Final metFORMIN (GLUCOPHAGE) 500 MG Tablet [Pharmacy Med Name: METFORMIN 500MG TABLETS] 120 Tablet 5 Sig: TAKE 2 TABLETS BY MOUTH TWICE DAILY WITH MEALS Biguanides Protocol Failed - 05/13/2022 11:54 AM Failed - GFR on record in [...] requirements Future Appointments Date Type Provider Dept 05/17/22 Appointment cFo Llanes MD [facility] Showing future appointments within next 90 days and meeting all other requirements Passed - HgA1C on record in past 6 months HGB-A1C Date Value Ref Range Status 11/16/2021 9.0 (A) 4 - 6 Final sertraline (ZOLOFT) 50 MG Tablet [Pharmacy Med Name: SERTRALINE 50MG TABLETS] 30 Tablet 5 Sig: TAKE 1 TABLET BY MOUTH DAILY SSRI (6 Month Refill Only) Protocol Passed - 05/13/2022 11:54 AM Passed - No test in the past 12 months or most recent test was negative Passed - No active on record Passed - Visit with relevant provider in past 6 months or upcoming 90 days Recent Visits Date Type Provider Dept 11/16/21 Office Visit Fco Llanes MD [facility] [place] Showing recent visits within past 182 days and meeting all other requirements Future Appointments Date Type Provider Dept 05/17/22 Appointment Fco Llanes MD [facility] Showing future appointments within next 90 days and meeting all other requirements Passed - Patient has established therapy with [facility] for at least 6 months Passed - Has an encounter in the past 6 months with a depression, anxiety, adjustment disorder, OCD, or PTSD visit diagnosis documented in this encounter Plan of Treatment Upcoming Encounters Date Type Department Care Team (Late st Contact Info) Description 10/11/2024 1:15 PM TYPEWRITER ASSEMBLER [facility] [address] [place] [address] Della Whaley, DO [address] [address] documented as of this encounter Visit Diagnoses Diagnosis Major depressive episode Major depressive disorder, single episode, unspecified documented in this encounter Additional Health Concerns Assessment Noted Time PHQ-9 Depression Total Score: 5 11/17/19 22 9:00 AM CDT documented as of this encounter Care Teams Transformer Assembler Relationship Specialty Start Date End Date Fco Llanes MD PCP - General Family Medicine 07/14/20 01/28/24 Della Whaley DO [address] [facility] [address] [address] [place] [address] PCP - General Family Medicine 01/30/24 Uche Haley MD #[address] [address] Consulting Physician General Surgery 02/21/23 documented as of this encounter
--- OUTSIDE RECORDS SUMMARY | 2024-10-05 15:48 | XMS_ITS | Encounter Summary ---
Author Organization [facility] Address [address] [facility] [place] [address] Phone Care Team Providers Care Gas Line Servicer Name Role Phone Fco Llanes MD Primary Care Provider [phone] Uche Haley MD Unavailable [phone] Della Whaley DO Primary Care Provider [phone] Reason for Visit * Reason Comments Medication Refill Encounter Details Date Type Department Care Team (Late st Contact Info) Description 07/25/2023 Refill [facility] - Family Medicine [facility] [address]2 [place] [phone] Fco Llanes MD [address]1 [place] [address] Medication Refill Social History Tobacco Use Types [...] Sex Assigned at Female 07/10/2023 4:42 AM MOTORCYCLE TESTER Legal Sex Female 3:32 PM MOTORCYCLE TESTER Gender Identity Female 07/10/2023 4:42 AM MOTORCYCLE TESTER Sexual Orientation Straight 07/10/2023 4: 42 AM MOTORCYCLE TESTER documented as of this encounter Miscellaneous Notes * Telephone Encounter - Beatrice Cid RN - 07/25/2023 10:22 AM CST Medication failed the protocol, provider to review and approve the medication order if appropriate. Requested Prescriptions Pending Prescriptions Disp Refills Lantus SoloStar 100 UNIT/ML Solution Pen-injector [Pharmacy Med Name: LANTUS SOLOSTAR PEN INJ 3ML] 6 mL 3 Sig: ADMINISTER 15 UNITS UNDER THE SKIN EVERY NIGHT Not Delegated - Insulin Protocol Failed - 07/25/2023 3:57 AM Failed - This refill cannot be delegated Passed - Visit with relevant provider in past 12 months or upcoming 90 days Recent Visits Date Type Provider Dept 05/23/23 Office Visit Fco Llanes MD [facility] 01/24/23 Office Visit Fco Llanes MD [facility] 09/20/22 Office Visit [facility] Ll[facility] MD [facility] [place] Showing recent visits within past 365 days and meeting all other requirements Future Appointments Date Type Provider Dept 09/26/23 Appointment Fco Llanes MD [facility] Showing future appointments within next 90 days and meeting all other requirements RCYCLE TESTER documented in this encounter Plan of Treatment Upcoming Encounters Date Type Department Care Team (Late st Contact Info) Description 10/11/2024 1:15 PM MOTORCYCLE TESTER [facility] - [place] [address] [place] [address] Della Whaley, DO 2 [facility] [place]ENO, [place]. [address] [place] [address] documented as of this encounter Visit Diagnoses Diagnosis Type 2 diabetes mellitus without complication, without long-term current use of insulin (HCC) documented in this encounter Additional Health Concerns Assessment Noted Time PHQ-9 Depression Total Score: 5 11/17/19 22 9:00 AM CDT documented as of this encounter Care Teams Gas Line Servicer Relationship Specialty Start Date End Date Fco Llanes MD PCP - General Family Medicine 07/14/20 01/28/24 Della Whaley DO [address] [facility] [place] [facility] [address] [place] [address] PCP - General Family Medicine 01/30/24 Uche Haley MD [address] [place] [facility] [address] [place] [phone] Consulting Physician General Surgery 02/21/23 documented as of this encounter
--- OUTSIDE RECORDS SUMMARY | 2024-10-05 15:48 | XMS_ITS | Encounter Summary ---
Author Organization [facility] Address [address] [facility] [place] [address] Phone Care Team Providers Care Flight Communications Specialist Name Role Phone Fco Llanes MD Primary Care Provider [phone] Uche Haley MD Unavailable [phone] Della Whaley DO Primary Care Provider [phone] Reason for Visit * Reason Comments Medication Refill Encounter Details Date Type Department Care Team (Late st Contact Info) Description 12/05/2023 Refill [facility] - Family Medicine [facility] [address]2 [place] [phone] Fco Llanes MD [address] [place] [address] Medication Refill Social History Tobacco Use Types [...] Sex Assigned at Female 07/10/2023 4:42 AM GOLF STUD RIVETER Legal Sex Female 3:32 PM GOLF STUD RIVETER Gender Identity Female 07/10/2023 4:42 AM GOLF STUD RIVETER Sexual Orientation Straight 07/10/2023 4: 42 AM GOLF STUD RIVETER documented as of this encounter Miscellaneous Notes * Telephone Encounter - Beatrice Cid RN - 12/05/2023 1:43 PM CDT Refills on file documented in this encounter Plan of Treatment Upcoming Encounters Date Type Department Care Team (Late st Contact Info) Description 10/11/2024 1:15 PM GOLF STUD RIVETER [facility] - [place] [address] [place] [address] Della Whaley DO 2 [facility] [place] [facility] [address] [place] [address] documented as of this encounter Visit Diagnoses Not on filedocumented in this encounter Additional Health Concerns Assessment Noted Time PHQ-9 Depression Total Score: 5 11/17/19 22 9:00 AM CDT documented as of this encounter Care Teams Flight Communications Specialist Relationship Specialty Start Date End Date Fco Llanes MD PCP - General Family Medicine 07/14/20 01/28/24 Della Whaley DO 2 [place] [facility] [address] [place] [address] PCP - General Family Medicine 01/30/24 Uche Haley MD [address] [place] [address] Consulting Physician General Surgery 02/21/23 documented as of this encounter
--- OUTSIDE RECORDS SUMMARY | 2024-10-05 15:48 | XMS_ITS | Encounter Summary ---
Author Organization [facility] Address [address] [facility] [place] [address] Phone Care Team Providers Care Conduit Cleaner Name Role Phone Fco Llanes MD Primary Care Provider [phone] Uche Haley MD Unavailable [phone] Della Whaley DO Primary Care Provider [phone] Reason for Visit * Reason Comments Medication Refill Encounter Details Date Type Department Care Team (Late st Contact Info) Description 02/11/2022 Refill [facility] Medical Group - Family Medicine [facility] [address]2 [place] [phone] Fco Llanes MD [address] [place] [address] Medication Refill Social History Tobacco Use Types [...] Sex Assigned at Female 07/10/2023 4:42 AM APPLIED RESEARCHER Legal Sex Female 3:32 PM APPLIED RESEARCHER Gender Identity Female 07/10/2023 4:42 AM APPLIED RESEARCHER Sexual Orientation Straight 07/10/2023 4: 42 AM APPLIED RESEARCHER documented as of this encounter Miscellaneous Notes * Telephone Encounter - Beatrice Cid RN - 02/12/2022 1:56 PM CDT Medication failed the protocol, provider to review and approve the medication order if appropriate. Requested Prescriptions Pending Prescriptions Disp Refills Januvia 100 MG Tablet [Pharmacy Med Name: JANUVIA 100MG TABLETS] 30 Tablet 2 Sig: TAKE 1 TABLET BY MOUTH DAILY DPP-4 Inhibitors Protocol Failed - 02/11/2022 1:52 AM Failed - GFR on record in past 6 months GFR, EST. NONAFRICAN Date Value Ref Range Status 03/30/2021 >60 >=60 Final Passed - Visit with relevant provider in past 6 months or upcoming 90 days Recent Visits Date Type Provider Dept 11/16/21 Office Visit Fco Llanes MD [facility] Showing recent visits within past 182 days and meeting all other requirements Future Appointments No visits were found meeting these conditions. Showing future appointments within next 90 days and meeting all other requirements Passed - HgA1C on record in the past 6 months HGB-A1C Date Value Ref Range Status 11/16/2021 9.0 (A) 4 - 6 Final documented in this encounter Plan of Treatment Upcoming Encounters Date Type Department Care Team (Late st Contact Info) Description 10/11/2024 1:15 PM APPLIED RESEARCHER Office Visit [facility] Medical Group - Family Medicine - [place] [address] [place] [address] Della Whaley, DO 2 [facility] [place] [facility] [address] [place] [address] documented as of this encounter Visit Diagnoses Not on filedocumented in this encounter Additional Health Concerns Assessment Noted Time PHQ-9 Depression Total Score: 5 11/17/19 22 9:00 AM CDT documented as of this encounter Care Teams Conduit Cleaner Relationship Specialty Start Date End Date Fco Llanes MD PCP - General Family Medicine 07/14/20 01/28/24 Della Whaley DO 2 [facility] [place] [facility] [address] [place], [place] [id number] PCP - General Family Medicine 01/30/24 Uhce Haley MD [address] [address] Consulting Physician General Surgery 02/21/23 documented as of this encounter
--- OUTSIDE RECORDS SUMMARY | 2024-10-05 15:48 | XMS_ITS | Encounter Summary ---
Author Organization [facility] Address [address] [facility] [place] [address] Phone Care Team Providers Care Electric Detector Operator Name Role Phone Fco Llanes MD Primary Care Provider Uche Haley MD Unavailable [phone] Della Whaley DO Primary Care Provider [phone] Reason for Visit * Reason Comments Medication Refill Encounter Details Date Type Department Care Team (Late st Contact Info) Description 11/06/2023 Refill [facility] Medical [facility] - Family Medicine [facility] [address] [place] [phone] Fco Llanes MD [address] [place] [address] Medication Refill Social History Tobacco Use Types [...] Sex Assigned at Female 07/10/2023 4:42 AM VENETIAN BLIND INSTALLER Legal Sex Female 3:32 PM VENETIAN BLIND INSTALLER Gender Identity Female 07/10/2023 4:42 AM VENETIAN BLIND INSTALLER Sexual Orientation Straight 07/10/2023 4: 42 AM VENETIAN BLIND INSTALLER documented as of this encounter Miscellaneous Notes * Telephone Encounter - Beatrice Cid RN - 11/06/2023 11:16 AM CDT Medication failed the protocol, provider to review and approve the medication order if appropriate. Requested Prescriptions Pending Prescriptions Disp Refills cyclobenzaprine (FLEXERIL) 10 MG Tablet [Pharmacy Med Name: CYCLOBENZAPRINE 10MG TABLETS] 42 Tablet0 Sig: TAKE 1 TABLET BY MOUTH THREE TIMES DAILY NEEDED FOR MUSCLE SPASMS Not Delegated - Muscle Relaxants Protocol Failed - 11/06/2023 3:57 AM Failed - This refill cannot be delegated Passed - Visit with relevant provider in past 12 months or upcoming 90 days Recent Visits Date Type Provider Dept 09/26/23 Office Visit Fco Llanes MD [facility] 05/23/23 Office Visit Fco Llanes MD [facility] 01/24/23 Office Visit Fco Llanes MD [facility] [place] Showing recent visits within past 365 days and meeting all other requirements Future Appointments Date Type Provider Dept 01/30/24 Appointment Fco Llanes MD [facility] Showing future appointments within next 90 days and meeting all other requirements documented in this encounter Plan of Treatment Upcoming Encounters Date Type Department Care Team (Late st Contact Info) Description 10/11/2024 1:15 PM VENETIAN BLIND INSTALLER Office Visit [facility] Medical Group - Family Medicine - [place] [address] [place] [address] Della Whaley, DO 2 [facility] [address] [place], [place] [address] [address] documented as of this encounter Visit Diagnoses Diagnosis Chronic tension-type headache, not intractable Chronic tension type headache documented in this encounter Additional Health Concerns Assessment Noted Time PHQ-9 Depression Total Score: 5 11/17/19 22 9:00 AM CDT documented as of this encounter Care Teams Electric Detector Operator Relationship Specialty Start Date End Date Fco Llanes MD PCP - General Family Medicine 07/14/20 01/28/24 Della Whaley DO [address] [facility] [place] [facility]ENO [facility] [address] [place] [address] PCP - General Family Medicine 01/30/24 Uche Haley MD [address] [address] Consulting Physician General Surgery 02/21/23 documented as of this encounter
--- OUTSIDE RECORDS SUMMARY | 2024-10-05 15:48 | XMS_ITS | Encounter Summary ---
Author Organization [facility] Address [address] [facility] [place] [address] Phone Care Team Providers Care Scrap Baler Name Role Phone Fco Llanes MD Primary Care Provider [phone] Uche Haley MD Unavailable [phone] Della Whaley DO Primary Care Provider [phone] Reason for Visit * Reason Comments Medication Refill Encounter Details Date Type Department Care Team (Late st Contact Info) Description 11/02/2023 Refill [facility] Medical Group - Family Medicine [facility] [address]2 [place] [address] Fco Llanes MD [address] [place] [address] Medication Refill Social History Tobacco Use Types [...] Sex Assigned at Female 07/10/2023 4:42 AM SEQUINS STRINGER Legal Sex Female 3:32 PM SEQUINS STRINGER Gender Identity Female 07/10/2023 4:42 AM SEQUINS STRINGER Sexual Orientation Straight 07/10/2023 4: 42 AM SEQUINS STRINGER documented as of this encounter Miscellaneous Notes * Telephone Encounter - Beatrice Cid RN - 11/03/2023 10:56 AM CDT PDMP 09/29/23 Medication failed the protocol, provider to review and approve the medication order if appropriate. Requested Prescriptions Pending Prescriptions Disp Refills zolpidem (AMBIEN) 10 MG Tablet [Pharmacy Med Name: ZOLPIDEM 10MG TABLETS] 30 Tablet 0 Sig: TAKE 1 TABLET BY MOUTH EVERY NIGHT NEEDED FOR SLEEP Not Delegated - Off Protocol Failed - 11/02/2023 11:48 PM Failed - This refill cannot be delegated Passed - Visit with relevant provider in past 12 months or upcoming 90 days Recent Visits Date Type Provider Dept 09/26/23 Office Visit Fco Llanes MD [facility] 05/23/23 Office Visit Fco Llanes MD [facility] 01/24/23 Office Visit Fco Llanes MD [facility] [place] Showing recent visits within past 365 days and meeting all other requirements Future Appointments Date Type Provider Dept 01/30/24 Appointment Fco Llanes MD [facility] Showing future appointments within next 90 days and meeting all other requirements documented in this encounter Plan of Treatment Upcoming Encounters Date Type Department Care Team (Late st Contact Info) Description 10/11/2024 1:15 PM SEQUINS STRINGER Office Visit [facility] Medical Group - Family Medicine - [place] [address] [place] [address] Della Whaley, DO 2 [place] [facility] [address] [place] [address] documented as of this encounter Visit Diagnoses Diagnosis Insomnia, unspecified type documented in this encounter Additional Health Concerns Assessment Noted Time PHQ-9 Depression Total Score: 5 11/17/19 22 9:00 AM CDT documented as of this encounter Care Teams Scrap Baler Relationship Specialty Start Date End Date Fco Llanes MD PCP - General Family Medicine 07/14/20 01/28/24 Della Whaley DO [address] [facility] [place] [facility] [facility] [address] [place] [address] PCP - General Family Medicine 01/30/24 Uche Haley MD [address] [address] [address] Consulting Physician General Surgery 02/21/23 documented as of this encounter
--- OUTSIDE RECORDS SUMMARY | 2024-10-05 15:48 | XMS_ITS | Encounter Summary ---
Author Organization [facility] Address [address] [facility] [place] [address] Phone Care Team Providers Care Electronic Prepress Technician Name Role Phone Fco Llanes MD Primary Care Provider [phone] Uche Haley MD Unavailable [phone] Della Whaley DO Primary Care Provider [phone] Reason for Visit * Reason Comments Medication Refill Encounter Details Date Type Department Care Team (Late st Contact Info) Description 10/23/2021 Refill [facility] - Family Medicine [facility] #2 [place] [phone] Fco Llanes MD #1 [place] [address] Medication Refill Social History Tobacco Use Types [...] Sex Assigned at Female 07/10/2023 4:42 AM MEDICAL PATHOLOGY TEACHER Legal Sex Female 3:32 PM MEDICAL PATHOLOGY TEACHER Gender Identity Female 07/10/2023 4:42 AM MEDICAL PATHOLOGY TEACHER Sexual Orientation Straight 07/10/2023 4: 42 AM MEDICAL PATHOLOGY TEACHER documented as of this encounter Miscellaneous Notes * Telephone Encounter - Evangelina Soler RN - 10/23/2021 11:33 AM CDT PDMP: 90-day supply dispensed 07/25/21 Medication failed the protocol, provider to review and approve the medication order if appropriate. Requested Prescriptions Pending Prescriptions Disp Refills pregabalin (LYRICA) 25 MG Capsule [Pharmacy Med Name: PREGABALIN 25MG CAPSULES] 270 Capsule Sig: TAKE 1 CAPSULE BY MOUTH THREE TIMES DAILY Not Delegated - Anticonvulsants Excluding Benzodiazepines Protocol Failed - 10/23/2021 7:06 AM Failed - This refill cannot be delegated Passed - Visit with relevant provider in past 12 months or upcoming 90 days Recent Visits Date Type Provider Dept 03/30/21 Office Visit Fco Llanes MD [facility] 11/03/20 Office Visit Fco Llanes MD [facility] Showing recent visits within past 365 days and meeting all other requirements Future Appointments Date Type Provider Dept 10/26/21 Appointment Fco Llanes MD [facility] Showing future appointments within next 90 days and meeting all other requirements documented in this encounter Plan of Treatment Upcoming Encounters Date Type Department Care Team (Late st Contact Info) Description 10/11/2024 1:15 PM MEDICAL PATHOLOGY TEACHER Office Visit [facility] - Family Medicine - [place] [address] [place] [address] Della Whaley, DO 2 [facility] [facility] [address] [place] [address] documented as of this encounter Visit Diagnoses Diagnosis Type 2 diabetes mellitus without complication, without long-term current use of insulin (HCC) documented in this encounter Additional Health Concerns Infection Onset Date Last Indicated Resolved Time COVID - 19 11/26/2021 11/26/2021 12/16/2021 12:1 7 AM CDT Assessment Noted Time PHQ-9 Depression Total Score: 14 020 9:39 AM MEDICAL PATHOLOGY TEACHER documented as of this encounter Care Teams Electronic Prepress Technician Relationship Specialty Start Date End Date Fco Llanes MD PCP - General Family Medicine 07/14/20 01/28/24 Della Whaley DO [address] [facility] [place] [place] [facility]. [address] [place] [address] PCP - General Family Medicine 01/30/24 Uche Haley MD [address] [facility] [address] [place] [address] Consulting Physician General Surgery 02/21/23 documented as of this encounter
--- OUTSIDE RECORDS SUMMARY | 2024-10-05 15:48 | XMS_ITS | Encounter Summary ---
Author Organization [facility] Address [address] [facility] [place] [address] Phone Care Team Providers Care Clearing Supervisor Name Role Phone Fco Llanes MD Primary Care Provider [phone] Uche Haley MD Unavailable [phone] Della Whaley DO Primary Care Provider [phone] Reason for Visit * Reason Comments Medication Refill Encounter Details Date Type Department Care Team (Late st Contact Info) Description 04/16/2022 Refill [facility] - Family Medicine [facility] #2 [place] [address] Fco Llanes MD #1 [place] [address] Medication Refill Social History Tobacco Use Types [...] Sex Assigned at Female 07/10/2023 4:42 AM TRIBUNAL MEMBER Legal Sex Female 3:32 PM TRIBUNAL MEMBER Gender Identity Female 07/10/2023 4:42 AM TRIBUNAL MEMBER Sexual Orientation Straight 07/10/2023 4: 42 AM TRIBUNAL MEMBER documented as of this encounter Miscellaneous Notes * Telephone Encounter - Beatrice Cid RN - 04/16/2022 3:56 PM CDT Medication failed the protocol, provider to review and approve the medication order if appropriate. Requested Prescriptions Pending Prescriptions Disp Refills fenofibrate 160 MG Tablet [Pharmacy Med Name: FENOFIBRATE 160MG TABLETS] 90 Tablet 1 Sig: TAKE 1 TABLET BY MOUTH DAILY Fibrates Protocol Failed - 04/16/2022 5:46 AM Failed - Lipid panel in past 12 months LDL Date Value Ref Range Status 03/30/2021 Final Comment: Unable to calculate LDL when Triglycerides are greater than 400. Direct measurement of LDL is available upon request as a separate test. HDL CHOLESTEROL Date Value Ref Range Status 03/30/2021 42.6 >40 mg/dL Final CHOLESTEROL Date Value Ref Range Status 03/30/2021 217 (H) <=200 mg/dL Final TRIGLYCERIDES Date Value Ref Range Status 03/30/2021 575 (H) <150 mg/dL Final VLDL Date Value Ref Range Status 03/30/2021 Final Comment: Cannot be calculated due to Hypertriglyceridemia. CHOL/HDL RATIO Date Value Ref Range Status 03/30/2021 5.1 (H) 0.0 - 4.4 Final NON-HDL CHOLESTEROL Date Value Ref Range Status 03/30/2021 174.4 (H) <130 mg/dL Final Passed - Visit with relevant provider in past 12 months or upcoming 90 days Recent Visits Date Type Provider Dept 11/16/21 Office Visit Fco Llanes MD [facility] Showing recent visits within past 365 days and meeting all other requirements Future Appointments Date Type Provider Dept 04/19/22 Appointment Fco Llanes MD [facility] Showing future appointments within next 90 days and meeting all other requirements documented in this encounter Plan of Treatment Upcoming Encounters Date Type Department Care Team (Late st Contact Info) Description 10/11/2024 1:15 PM TRIBUNAL MEMBER Office Visit [facility] - Family Medicine - [place] [address] [place] [address] Della Whaley DO [address] [facility] [facility] [address] [place] [address] documented as of this encounter Visit Diagnoses Not on filedocumented in this encounter Additional Health Concerns Assessment Noted Time PHQ-9 Depression Total Score: 5 11/17/19 22 9:00 AM CDT documented as of this encounter Care Teams Clearing Supervisor Relationship Specialty Start Date End Date Fco Llanes MD PCP - General Family Medicine 07/14/20 01/28/24 Della Whaley DO [address] [facility] [place] [facility] [facility] [address] [place] [address] PCP - General Family Medicine 01/30/24 Uche Haley MD #[address] [place] [address] Consulting Physician General Surgery 02/21/23 documented as of this encounter
--- OUTSIDE RECORDS SUMMARY | 2024-10-05 15:48 | XMS_ITS | Encounter Summary ---
Author Organization [facility] Address [address] [facility] [place] [address] Phone Care Team Providers Care Land Resource Specialist Name Role Phone Fco Llanes MD Primary Care Provider [phone] Uche Haley MD Unavailable [phone] Della Whaley DO Primary Care Provider [phone] Reason for Visit * Reason Comments Medication Refill Encounter Details Date Type Department Care Team (Late st Contact Info) Description 10/05/2021 Refill [facility] - Family Medicine [facility] [address]2 [place] [id number] Fco Llanse MD #1 [place] [address] Medication Refill Social History Tobacco Use Types [...] Sex Assigned at Female 07/10/2023 4:42 AM UPKEEP MECHANIC Legal Sex Female 3:32 PM UPKEEP MECHANIC Gender Identity Female 07/10/2023 4:42 AM UPKEEP MECHANIC Sexual Orientation Straight 07/10/2023 4: 42 AM UPKEEP MECHANIC documented as of this encounter Miscellaneous Notes * Telephone Encounter - Beatrice Cid RN - 10/05/2021 3:12 PM CST I no longer see this on medication list - it is on the historical medication list - this medicationwas dispensed on 08/01/21 & 08/28/21 by Marcos. Medication failed the protocol, provider to review and approve the medication order if appropriate. Requested Prescriptions Pending Prescriptions Disp Refills Lantus SoloStar 100 UNIT/ML Solution Pen-injector [Pharmacy Med Name: LANTUS SOLOSTAR PEN INJ 3ML] 6 mL 2 Sig: ADMINISTER 15 UNITS UNDER THE SKIN EVERY EVENING Not Delegated - Insulin Protocol Failed - 10/05/2021 3:01 PM Failed - This refill cannot be delegated Passed - Visit with relevant provider in past 12 months or upcoming 90 days Recent Visits Date Type Provider Dept 03/30/21 Office Visit Fco Llanes MD [facility] [place] 11/03/20 Office Visit Fco Llanes MD [facility] [place] Showing recent visits within past 365 days and meeting all other requirements Future Appointments Date Type Provider Dept 10/26/21 Appointment Fco Llanes MD [facility] Showing future appointments within next 90 days and meeting all other requirements EP MECHANIC EP MECHANIC documented in this encounter Plan of Treatment Upcoming Encounters Date Type Department Care Team (Late st Contact Info) Description 10/11/2024 1:15 PM UPKEEP MECHANIC Office Visit [facility] Medical Group - Family Medicine - [place] [address] [place] [address] Della Whaley, DO 2 [facility] [address] [facility]. [address] [place] [address] documented as of this encounter Visit Diagnoses Not on filedocumented in this encounter Additional Health Concerns Infection Onset Date Last Indicated Resolved Time COVID - 19 11/26/2021 11/26/2021 12/16/2021 12:1 7 AM CDT Assessment Noted Time PHQ-9 Depression Total Score: 14 020 9:39 AM UPKEEP MECHANIC documented as of this encounter Care Teams Land Resource Specialist Relationship Specialty Start Date End Date Fco Llanes MD PCP - General Family Medicine 07/14/20 01/28/24 Della Whaley DO 2 [facility] [address] [place] [address] PCP - General Family Medicine 01/30/24 Uche Haley MD #2 [facility] [address] [place] [address] Consulting Physician General Surgery 02/21/23 documented as of this encounter
--- OUTSIDE RECORDS SUMMARY | 2024-10-05 15:48 | XMS_ITS | Encounter Summary ---
Author Organization [facility] Address [address] [facility] [place] [address] Phone Care Team Providers Care Remote Advisor Name Role Phone Fco Llanes MD Primary Care Provider [phone] Uche Haley MD Unavailable [phone] Della Whaley DO Primary Care Provider [phone] Reason for Visit * Reason Comments Medication Refill Encounter Details Date Type Department Care Team (Late st Contact Info) Description 11/08/2021 Refill [facility] Medical Group - Family Medicine [facility] [address]2 [place] [phone] Fco Llanes MD [address]1 [place] [address] Medication Refill Social History Tobacco Use Types [...] Sex Assigned at Female 07/10/2023 4:42 AM STOCKING INSPECTOR Legal Sex Female 3:32 PM STOCKING INSPECTOR Gender Identity Female 07/10/2023 4:42 AM STOCKING INSPECTOR Sexual Orientation Straight 07/10/2023 4: 42 AM STOCKING INSPECTOR documented as of this encounter Miscellaneous Notes * Telephone Encounter - Fco Llanes MD - 11/09/2021 5:16 PM CDT I have told her several times that she needs an appointment. I am liable for her even if she refuses to come in. I do not know how else to get this through to her but to deny her meds. * Telephone Encounter - Beatrice Cid RN - 11/09/2021 9:21 AM CDT PDMP 09/06/21 Medication failed the protocol, provider to review and approve the medication order if appropriate. Requested Prescriptions Pending Prescriptions Disp Refills Lantus SoloStar 100 UNIT/ML Solution Pen-injector [Pharmacy Med Name: LANTUS SOLOSTAR PEN INJ 3ML] 6 mL 1 Sig: ADMINISTER 15 UNITS UNDER THE SKIN EVERY EVENING Not Delegated - Insulin Protocol Failed - 11/08/2021 8:52 PM Failed - This refill cannot be delegated Passed - Visit with relevant provider in past 12 months or upcoming 90 days Recent Visits Date Type Provider Dept 03/30/21 Office Visit Fco Llanes MD [facility] Showing recent visits within past 365 days and meeting all other requirements Future Appointments Date Type Provider Dept 11/16/21 Appointment Fco Llanes MD [facility] Showing future appointments within next 90 days and meeting all other requirements zolpidem (AMBIEN) 10 MG Tablet [Pharmacy Med Name: ZOLPIDEM 10MG TABLETS] 30 Tablet 0 Sig: TAKE 1 TABLET BY MOUTH EVERY NIGHT NEEDED FOR SLEEP There is no refill protocol information for this order Januvia 100 MG Tablet [Pharmacy Med Name: JANUVIA 100MG TABLETS] 30 Tablet 2 Sig: TAKE 1 TABLET BY MOUTH DAILY DPP-4 Inhibitors Protocol Failed - 11/08/2021 8:52 PM Failed - HgA1C on record in the past 6 months HGB-A1C Date Value Ref Range Status 03/30/2021 8.4 (A) 4 - 6 Final HGB-A1C Date Value Ref Range Status 03/30/2021 8.6 (H) 4.0 - 6.0 % Final Failed - GFR on record in past 6 months GFR, EST. NONAFRICAN Date Value Ref Range Status 03/30/2021 >60 >=60 Final Passed - Visit with relevant provider in past 6 months or upcoming 90 days Recent Visits No visits were found meeting these conditions. Showing recent visits within past 182 days and meeting all other requirements Future Appointments Date Type Provider Dept 11/16/21 Appointment Fco Llanes MD [facility] Showing future appointments within next 90 days and meeting all other requirements documented in this encounter Plan of Treatment Upcoming Encounters Date Type Department Care Team (Late st Contact Info) Description 10/11/2024 1:15 PM STOCKING INSPECTOR [facility] Visit [facility] [address] [place] [address] Della Whaley DO 2 [facility] [address] [address] documented as of this encounter Visit Diagnoses Diagnosis Insomnia, unspecified type documented in this encounter Additional Health Concerns Infection Onset Date Last Indicated Resolved Time COVID - 19 11/26/2021 11/26/2021 12/16/2021 12:1 7 AM CDT Assessment Noted Time PHQ-9 Depression Total Score: 14 020 9:39 AM STOCKING INSPECTOR documented as of this encounter Care Teams Remote Advisor Relationship Specialty Start Date End Date Fco Llanes MD PCP - General Family Medicine 07/14/20 01/28/24 Della Whaley DO [address] [facility] [facility] [address] [place] [address] PCP - General Family Medicine 01/30/24 Uche Haley MD [id number] [place] [address] Consulting Physician General Surgery 02/21/23 documented as of this encounter
--- OUTSIDE RECORDS SUMMARY | 2024-10-05 15:48 | XMS_ITS | Encounter Summary ---
Author Organization [facility] Address [address] [facility] [place] [address] Phone Care Team Providers Care Paper Colorer Name Role Phone Fco Llanes MD Primary Care Provider [phone] Uche Haley MD Unavailable [phone] Della Whaley DO Primary Care Provider [phone] Reason for Visit * Reason Comments Medication Refill Encounter Details Date Type Department Care Team (Late st Contact Info) Description 11/20/2023 Refill [facility] - Family Medicine [facility] #2 [place] [address] Fco Llanes MD [address]1 [place] [address] Medication Refill Social History Tobacco Use Types [...] Sex Assigned at Female 07/10/2023 4:42 AM PADDER CUSHION Legal Sex Female 3:32 PM PADDER CUSHION Gender Identity Female 07/10/2023 4:42 AM PADDER CUSHION Sexual Orientation Straight 07/10/2023 4: 42 AM PADDER CUSHION documented as of this encounter Miscellaneous Notes * Telephone Encounter - Beatrice Cid RN - 11/20/2023 11:33 AM CDT [facility]ication([facility]) [facility] Med[facility] Refill Standing Order for Pediatricand Adult Patients. Requested Prescriptions Pending Prescriptions Disp Refills losartan (COZAAR) 25 MG Tablet [Pharmacy Med Name: LOSARTAN 25MG TABLETS] 30 Tablet 5 Sig: TAKE 1 TABLET BY MOUTH DAILY ARB Protocol Passed - 11/20/2023 5:45 AM Passed - Serum potassium on record in past 12 months POTASSIUM Date Value Ref Range Status 09/26/2023 4.1 3.5 - 5.1 mmol/L Final Passed - BP on record in the past year Clinician-entered: BP Readings from Last 3 Encounters: 09/26/23 110/80 05/23/23 126/78 02/24/23 112/70 Patient-entered: No data recorded Passed - No positive test in the past 12 months or most recent test was negative Passed - Visit with relevant provider in past year or upcoming 90 days Recent Visits Date Type Provider Dept 09/26/23 Office Visit Fco Llanes MD [facility] 05/23/23 Office Visit Fco Llanes MD [facility] 01/24/23 Office Visit Fco Llanes MD [facility] Showing recent visits within past 365 days and meeting all other requirements Future Appointments Date Type Provider Dept 01/30/24 Appointment Fco Llanes MD [facility] Showing future appointments within next 90 days and meeting all other requirements Passed - No active on record Passed - GFR on record in past 12 months GFR, EST. NONAFRICAN Date Value Ref Range Status 09/26/2023 >60 >=60 Final documented in this encounter Plan of Treatment Upcoming Encounters Date Type Department Care Team (Late st Contact Info) Description 10/11/2024 1:15 PM PADDER CUSHION [facility] Family [facility] [address] [place] [address] Della Whaley DO [address] [facility] [facility] [address] [place] [address] documented as of this encounter Visit Diagnoses Not on filedocumented in this encounter Additional Health Concerns Assessment Noted Time PHQ-9 Depression Total Score: 5 11/17/19 22 9:00 AM CDT documented as of this encounter Care Teams Paper Colorer Relationship Specialty Start Date End Date Fco Llanes MD PCP - General Family Medicine 07/14/20 01/28/24 Della Whaley DO [address] [facility] [address] [facility] [address] [place] [address] PCP - General Family Medicine 01/30/24 Uche Haley MD [address] [address] Consulting Physician General Surgery 02/21/23 documented as of this encounter
--- OUTSIDE RECORDS SUMMARY | 2024-10-05 15:48 | XMS_ITS | Encounter Summary ---
Author Organization [facility] Address [address] [facility] [place] [address] Phone Care Team Providers Care Aircraft Mechanic Name Role Phone Fco Llanes MD Primary Care Provider [phone] Uche Haley MD Unavailable [phone] Della Whaley DO Primary Care Provider [phone] Reason for Visit * Reason Comments Medication Refill Encounter Details Date Type Department Care Team (Late st Contact Info) Description 12/24/2021 Refill [facility] Medical Group - Family Medicine [facility] [address]2 [place] [address] Fco Llanes MD #1 [place] [address] Medication Refill Social History Tobacco Use Types [...] Sex Assigned at Female 07/10/2023 4:42 AM SHEEP OR CALF GRADER Legal Sex Female 3:32 PM SHEEP OR CALF GRADER Gender Identity Female 07/10/2023 4:42 AM SHEEP OR CALF GRADER Sexual Orientation Straight 07/10/2023 4: 42 AM SHEEP OR CALF GRADER COVID-19 Exposure Response Date Recorded In the last 10 days, have yo u been in contact with someone who was confirmed or suspected to have Coronavirus/COVID-19? No / Unsure 11/26/2021 4:29 PM CDT documented as of this encounter Miscellaneous Notes * Telephone Encounter - Beatrice Cid RN - 12/24/2021 2:42 PM CDT Medication failed the protocol, provider to review and approve the medication order if appropriate. Requested Prescriptions Pending Prescriptions Disp Refills metFORMIN (GLUCOPHAGE) 500 MG Tablet [Pharmacy Med Name: METFORMIN 500MG TABLETS] 120 Tablet 2 Sig: TAKE 2 TABLETS BY MOUTH TWICE DAILY WITH MEALS Biguanides Protocol Failed - 12/24/2021 5:45 AM Failed - GFR on record in past 6 months GFR, EST. NONAFRICAN Date Value Ref Range Status 03/30/2021 >60 >=60 Final Passed - Visit with relevant provider in past 6 months or upcoming 90 days Recent Visits Date Type Provider Dept 11/16/21 Office Visit Fco Llanes MD [facility] [place] Showing recent visits within past 182 [...] st Contact Info) Description 10/11/2024 1:15 PM SHEEP OR CALF GRADER Office Visit [facility] Medical Group - Family Medicine - [place] [address] [place] [address] Della Whaley L, DO 2 [facility] [address] [facility] [facility] [address] [place] [address] documented as of this encounter Visit Diagnoses Not on filedocumented in this encounter Additional Health Concerns Assessment Noted Time PHQ-9 Depression Total Score: 5 11/17/19 22 9:00 AM CDT documented as of this encounter Care Teams Aircraft Mechanic Relationship Specialty Start Date End Date Fco Llanes MD PCP - General Family Medicine 07/14/20 01/28/24 Della Whaley DO [address] [place] [address] PCP - General Family Medicine 01/30/24 Uche Haley MD [address] [address] Consulting Physician General Surgery 02/21/23 documented as of this encounter
--- OUTSIDE RECORDS SUMMARY | 2024-10-05 15:48 | XMS_ITS | Encounter Summary ---
Author Organization [facility] Address [address] [facility] [place] [address] Phone Care Team Providers Care Hcc Coders Name Role Phone Fco Llanes MD Primary Care Provider [phone] Uche Haley MD Unavailable [phone] Della Whaley DO Primary Care Provider [phone] Reason for Visit * Reason Comments Medication Refill Encounter Details Date Type Department Care Team (Late st Contact Info) Description 10/27/2023 Refill [facility] Medical Group - Family Medicine [facility] #2 [place] [address] Fco Llanes MD [address]1 [place] [address] Medication Refill Social History Tobacco Use Types [...] Sex Assigned at Female 07/10/2023 4:42 AM CARGO SERVICES COORDINATOR Legal Sex Female 3:32 PM CARGO SERVICES COORDINATOR Gender Identity Female 07/10/2023 4:42 AM CARGO SERVICES COORDINATOR Sexual Orientation Straight 07/10/2023 4: 42 AM CARGO SERVICES COORDINATOR documented as of this encounter Miscellaneous Notes * Telephone Encounter - Beatrice Cid RN - 10/27/2023 11:41 AM CDT Medication([facility]) [facility] Medication Refill Standing Order for Pediatricand Adult Patients. Requested Prescriptions Pending Prescriptions Disp Refills metFORMIN (GLUCOPHAGE) 500 MG Tablet [Pharmacy Med Name: METFORMIN 500MG TABLETS] 360 Tablet 1 Sig: TAKE 2 TABLETS BY MOUTH TWICE DAILY WITH MEALS Biguanides Protocol Passed - 10/27/2023 3:57 AM Passed - Visit with relevant provider in past 6 months or upcoming 90 days Recent Visits Date Type Provider Dept 09/26/23 Office Visit Fco Llanes MD [facility] 05/23/23 Office Visit Fco Llanes MD [facility] [place] Showing recent visits within past 182 [...] st Contact Info) Description 10/11/2024 1:15 PM CARGO SERVICES COORDINATOR Office Visit [facility] - Family Medicine - [place] [address] [place] [address] Della Whaley, DO 2 [facility] [address], [facility]. [address] [place] [address] documented as of this encounter Visit Diagnoses Not on filedocumented in this encounter Additional Health Concerns Assessment Noted Time PHQ-9 Depression Total Score: 5 11/17/19 22 9:00 AM CDT documented as of this encounter Care Teams Hcc Coders Relationship Specialty Start Date End Date Fco Llanes MD PCP - General Family Medicine 07/14/20 01/28/24 Della Whaley DO [address] [facility] [address] [place] [address] PCP - General Family Medicine 01/30/24 Uche Haley MD [address] [facility] [address] [place] [address] Consulting Physician General Surgery 02/21/23 documented as of this encounter
--- OUTSIDE RECORDS SUMMARY | 2024-10-05 15:48 | XMS_ITS | Encounter Summary ---
Author Organization [facility] Address [address] [facility] [place] [address] Phone Care Team Providers Care Music Therapy Specialist Name Role Phone Fco Llanes MD Primary Care Provider [phone] Uche Haley MD Unavailable [phone] Della Whaley DO Primary Care Provider [phone] Reason for Visit * Reason Comments Medication Refill Encounter Details Date Type Department Care Team (Late st Contact Info) Description 12/05/2023 Refill [facility] Medical Group - Family Medicine [facility] #2 [place] [address] Fco Llanes MD [address]1 [place] [address] Medication Refill Social History Tobacco Use Types [...] Sex Assigned at Female 07/10/2023 4:42 AM PAD MACHINE FEEDER Legal Sex Female 3:32 PM PAD MACHINE FEEDER Gender Identity Female 07/10/2023 4:42 AM PAD MACHINE FEEDER Sexual Orientation Straight 07/10/2023 4: 42 AM PAD MACHINE FEEDER documented as of this encounter Miscellaneous Notes * Telephone Encounter - Beatrice Cid RN - 12/05/2023 9:38 AM CDT PDMP 11/03/23 Medication failed the protocol, provider to review and approve the medication order if appropriate. Requested Prescriptions Pending Prescriptions Disp Refills zolpidem (AMBIEN) 10 MG Tablet [Pharmacy Med Name: ZOLPIDEM 10MG TABLETS] 30 Tablet 0 Sig: TAKE 1 TABLET BY MOUTH EVERY NIGHT NEEDED FOR SLEEP Not Delegated - Off Protocol Failed - 12/05/2023 2:12 AM Failed - This refill cannot be delegated Passed - Visit with relevant provider in past 12 months or upcoming 90 days Recent Visits Date Type Provider Dept 09/26/23 Office Visit Fco Llanes MD [facility] 05/23/23 Office Visit Fco Llanes MD [facility] 01/24/23 Office Visit Fco Llanes MD [facility] [place] Showing recent visits within past 365 days and meeting all other requirements Future Appointments Date Type Provider Dept 01/30/24 Appointment Fco Llanes MD [facility] Showing future appointments within next 90 days and meeting all other requirements documented in this encounter Plan of Treatment Upcoming Encounters Date Type Department Care Team (Late st Contact Info) Description 10/11/2024 1:15 PM PAD MACHINE FEEDER Office Visit [facility] - Family Medicine - [place] [address] [place] [address] Della Whaley, DO 2 [facility] [facility] [address] [place] [address] documented as of this encounter Visit Diagnoses Diagnosis Insomnia, unspecified type documented in this encounter Additional Health Concerns Assessment Noted Time PHQ-9 Depression Total Score: 5 11/17/19 22 9:00 AM CDT documented as of this encounter Care Teams Music Therapy Specialist Relationship Specialty Start Date End Date Fco Llanes MD PCP - General Family Medicine 07/14/20 01/28/24 Della Whaley DO [address] [facility] [facility] [address] [place] [address] PCP - General Family Medicine 01/30/24 Uche Haley MD [address] [address] Consulting Physician General Surgery 02/21/23 documented as of this encounter
--- OUTSIDE RECORDS SUMMARY | 2024-10-05 15:48 | XMS_ITS | Encounter Summary ---
Author Organization [facility] Address [address] [facility] [place] [address] Phone Care Team Providers Care Tire Technician Name Role Phone Fco Llanes MD Primary Care Provider Uche Haley MD Unavailable [phone] Della Whaley DO Primary Care Provider [phone] Reason for Visit * Reason Comments Medication Refill Encounter Details Date Type Department Care Team (Late st Contact Info) Description 01/10/2024 Refill [facility] Medical Group - Family Medicine [facility] #2 [place] [address] Fco Llanes MD #1 [place] [address] Medication Refill Social History Tobacco Use Types [...] Sex Assigned at Female 07/10/2023 4:42 AM OUTPATIENT SCHEDULER Legal Sex Female 3:32 PM OUTPATIENT SCHEDULER Gender Identity Female 07/10/2023 4:42 AM OUTPATIENT SCHEDULER Sexual Orientation Straight 07/10/2023 4: 42 AM OUTPATIENT SCHEDULER documented as of this encounter Miscellaneous Notes * Telephone Encounter - Evangelina Soler RN - 01/10/2024 1:54 PM CDT Medication(s) refilled and signed per [facility] Chronic Medication Refill Standing Order for Pediatricand Adult Patients. Requested Prescriptions Pending Prescriptions Disp Refills Ozempic, 2 MG/DOSE, 8 MG/3ML Solution Pen-injector [Pharmacy Med Name: OZEMPIC 2MG PER DOSE (8MG/3ML) PFP] 3 mL 0 Sig: INJECT 2 MG UNDER THE SKIN ONE DAY A WEEK GLP-1 Agonists Protocol Passed - 01/10/2024 3:58 AM Passed - Lipid panel result on [...] 12/18/23 Office Visit Valdo Florence APRN, [facility] [place] 09/26/23 Office Visit Fco Llanes MD [facility] [place] Showing recent visits within past 182 days and meeting all other requirements Future Appointments Date Type Provider Dept 01/30/24 Appointment Della Whaley DO [facility] [place] Showing future appointments within next 90 [...] st Contact Info) Description 10/11/2024 1:15 PM OUTPATIENT SCHEDULER [facility] Visit [facility] - Family Medicine [facility] #[address] [place] [address] Della Whaley DO 2 [facility] [address] [place] [address] documented as of this encounter Visit Diagnoses Not on filedocumented in this encounter Additional Health Concerns Assessment Noted Time PHQ-9 Depression Total Score: 5 11/17/19 22 9:00 AM CDT documented as of this encounter Care Teams Tire Technician Relationship Specialty Start Date End Date Fco Llanes MD PCP - General Family Medicine 07/14/20 01/28/24 Della Whaley DO 2 [facility] [address] [place] [address] PCP - General Family Medicine 01/30/24 Uche Haley MD [address] [place] [address] Consulting Physician General Surgery 02/21/23 documented as of this encounter
--- OUTSIDE RECORDS SUMMARY | 2024-10-05 15:48 | XMS_ITS | Encounter Summary ---
Author Organization [facility] Address [address] Counts include [facility] [place] [address] Phone Care Team Providers Care Tableau Lead Name Role Phone Fco Llanes MD Primary Care Provider [phone] Uche Haley MD Unavailable [phone] Della Whaley DO Primary Care Provider [phone] Reason for Visit * Reason Comments Medication Refill Encounter Details Date Type Department Care Team (Late st Contact Info) Description 10/16/2023 Refill [facility] Medical [facility] - Family Medicine [facility] [address]2 [place] [phone] Valdo Florence, NICOLE, MOBILE HOME MECHANIC [address] [address] Medication Refill Social History Tobacco Use Types [...] Sex Assigned at Female 07/10/2023 4:42 AM DECORATIVE ENGRAVER APPRENTICE Legal Sex Female 3:32 PM DECORATIVE ENGRAVER APPRENTICE Gender Identity Female 07/10/2023 4:42 AM DECORATIVE ENGRAVER APPRENTICE Sexual Orientation Straight 07/10/2023 4: 42 AM DECORATIVE ENGRAVER APPRENTICE documented as of this encounter Miscellaneous Notes * Telephone Encounter - Evangelina Soler RN - 10/16/2023 8:40 AM DECORATIVE ENGRAVER APPRENTICE Medication(s) refilled and signed per [facility] Chronic Medication Refill Standing Order for Pediatricand Adult Patients. Requested Prescriptions Pending Prescriptions Disp Refills pantoprazole (PROTONIX) 40 MG Tablet Delayed Response [Pharmacy Med Name: PANTOPRAZOLE 40MG TABLETS] 90 Tablet Sig: Take 1 Tablet by mouth daily. Proton Pump Inhibitors Protocol Passed - 10/16/2023 3:58 AM Passed - No positive test in the past 12 months or most recent test was negative Passed - Visit with relevant provider in past 12 months or upcoming 90 days Recent Visits Date Type Provider Dept 09/26/23 Office Visit Fco Llanes MD [facility] [place] 05/23/23 Office Visit Fco Llanes MD [facility] 01/24/23 Office Visit Fco Llanes MD [facility] Showing recent visits within past 365 days and meeting all other requirements Future Appointments No visits were found meeting these conditions. Showing future appointments within next 90 days and meeting all other requirements Passed - No active on record RATIVE ENGRAVER APPRENTICE documented in this encounter Plan of Treatment Upcoming Encounters Date Type Department Care Team (Late st Contact Info) Description 10/11/2024 1:15 PM DECORATIVE ENGRAVER APPRENTICE Office Visit [facility] - [place] [address] [place] [address] Della Whaley, DO [address], [address]. [address] [place] [id number] documented as of this encounter Visit Diagnoses Not on filedocumented in this encounter Additional Health Concerns Assessment Noted Time PHQ-9 Depression Total Score: 5 11/17/19 22 9:00 AM CDT documented as of this encounter Care Teams Tableau Lead Relationship Specialty Start Date End Date Fco Llanes MD PCP - General Family Medicine 07/14/20 01/28/24 Della Whaley DO [address] [facility] [facility] [address] [place], [place] [id number] PCP - General Family Medicine 01/30/24 Uche Haley MD [address] [phone] Consulting Physician General Surgery 02/21/23 documented as of this encounter
--- OUTSIDE RECORDS SUMMARY | 2024-10-05 15:48 | XMS_ITS | Encounter Summary ---
Author Organization [facility] Address [address] [facility] [place] [address] Phone Care Team Providers Care Cotton Ball Machine Tender Name Role Phone Fco Llanes MD Primary Care Provider [phone] Uche Haley MD Unavailable [phone] Della Whaley DO Primary Care Provider [phone] Reason for Visit * Reason Comments Medication Refill Encounter Details Date Type Department Care Team (Late st Contact Info) Description 06/30/2023 Refill [facility] Medical Group - Family Medicine [facility] [address]2 [place] [address] Xuan Pierre M, QUANTITATIVE DEVELOPER, PUBLICATIONS EDITOR [address] [place] [address] Medication Refill Social History Tobacco Use Types [...] Sex Assigned at Female 07/10/2023 4:42 AM TANKROOM WORKER Legal Sex Female 3:32 PM TANKROOM WORKER Gender Identity Female 07/10/2023 4:42 AM TANKROOM WORKER Sexual Orientation Straight 07/10/2023 4: 42 AM TANKROOM WORKER documented as of this encounter Miscellaneous Notes * Telephone Encounter - Beatrice Cid RN - 06/30/2023 1:33 PM CST Per nursing clinical judgement, provider to review and approve the medication(s) order(s) if appropriate. Requested Prescriptions Pending Prescriptions Disp Refills Ozempic, 2 MG/DOSE, 8 MG/3ML Solution Pen-injector [Pharmacy Med Name: OZEMPIC 2MG PER DOSE (1X8MG PEN)] 3 mL 0 Sig: INJECT 2 MG UNDER THE SKIN ONE DAY A WEEK GLP-1 Agonists Protocol Passed - 06/30/2023 7:55 AM Passed - Lipid panel result on file in past 12 months LDL Date Value Ref Range Status 01/24/2023 96 5 - 130 mg/dL Final HDL CHOLESTEROL Date Value Ref Range Status 01/24/2023 38.4 (L) >40 mg/dL Final CHOLESTEROL Date Value Ref Range Status 01/24/2023 191 <=200 mg/dL Final TRIGLYCERIDES Date Value Ref Range Status 01/24/2023 283 (H) <150 mg/dL Final VLDL Date Value Ref Range Status 01/24/2023 57 (H) 5 - 55 mg/dL Final CHOL/HDL RATIO Date Value Ref Range Status 01/24/2023 5.0 (H) 0.0 - 4.4 Final NON-HDL CHOLESTEROL Date Value Ref Range Status 01/24/2023 152.6 (H) <130 mg/dL Final Passed - Visit with relevant provider in past 6 months or upcoming 90 days Recent Visits Date Type Provider Dept 05/23/23 Office Visit Fco Llanes MD [facility] 01/24/23 Office Visit Fco Llanes MD [facility] Showing recent visits within past 182 days and meeting all other requirements Future Appointments Date Type Provider Dept 09/26/23 Appointment Fco Llanes MD [facility] Showing future appointments within next 90 days and meeting all other requirements Passed - HgA1C result on record in past 6 months HGB-A1C Date Value Ref Range Status 05/23/2023 7.2 (A) 4 - 6 % Final Passed - GFR on record in past 6 months GFR, EST. NONAFRICAN Date Value Ref Range Status 01/24/2023 >60 >=60 Final ROOM WORKER documented in this encounter Plan of Treatment Upcoming Encounters Date Type Department Care Team (Late st Contact Info) Description 10/11/2024 1:15 PM TANKROOM WORKER Office Visit [facility] Medical Group - Family Medicine [facility] [address] [facility] [place] [address] Della Wh[address] DO [address] [facility] [address] [place] [address] documented as of this encounter Visit Diagnoses Not on filedocumented in this encounter Additional Health Concerns Assessment Noted Time PHQ-9 Depression Total Score: 5 11/17/19 22 9:00 AM CDT documented as of this encounter Care Teams Cotton Ball Machine Tender Relationship Specialty Start Date End Date Fco Llanes MD PCP - General Family Medicine 07/14/20 01/28/24 Della Whaley DO [address] [facility] [address] [place] [address] PCP - General Family Medicine 01/30/24 Uche Haley MD [address] [place] [address] Consulting Physician General Surgery 02/21/23 documented as of this encounter
--- OUTSIDE RECORDS SUMMARY | 2024-10-05 15:48 | XMS_ITS | Encounter Summary ---
Author Organization [facility] Address [address] [facility] [place] [address] Phone Care Team Providers Care Channel Man Name Role Phone Fco Llanes MD Primary Care Provider [phone] Uche Haley MD Unavailable [phone] Della Whaley DO Primary Care Provider [phone] Reason for Visit * Reason Comments Medication Refill Encounter Details Date Type Department Care Team (Late st Contact Info) Description 12/17/2021 Refill [facility] Medical Group - Family Medicine [facility] #2 [place] [phone] Fco Llanes MD [address] [place] [address] Medication Refill Social History Tobacco Use Types [...] Sex Assigned at Female 07/10/2023 4:42 AM GUIDE DOG TRAINER Legal Sex Female 3:32 PM GUIDE DOG TRAINER Gender Identity Female 07/10/2023 4:42 AM GUIDE DOG TRAINER Sexual Orientation Straight 07/10/2023 4: 42 AM GUIDE DOG TRAINER COVID-19 Exposure Response Date Recorded In the last 10 days, have yo u been in contact with someone who was confirmed or suspected to have Coronavirus/COVID-19? No / Unsure 11/26/2021 4:29 PM CDT documented as of this encounter Miscellaneous Notes * Telephone Encounter - Beatrice Cid RN - 12/18/2021 12:13 PM CDT Medication failed the protocol, provider to review and approve the medication order if appropriate. Requested Prescriptions Pending Prescriptions Disp Refills fish oil-omega-3 fatty acids 1000 MG Capsule [Pharmacy Med Name: FISH OIL 1000MG CAPSULES] 60 Capsule 2 Sig: TAKE 2 CAPSULES BY MOUTH DAILY Not Delegated - Off Protocol Failed - 12/17/2021 7:03 PM Failed - This refill cannot be delegated Passed - Visit with relevant provider in past 12 months or upcoming 90 days Recent Visits Date Type Provider Dept 11/16/21 Office Visit Fco Llanes MD [facility] 03/30/21 Office Visit Fco Llanes MD [facility] Showing recent visits within past 365 days and meeting all other requirements Future Appointments Date Type Provider Dept 02/15/22 Appointment Fco Llanes MD [facility] Showing future appointments within next 90 days and meeting all other requirements HumaLOG KwikPen 100 UNIT/ML Solution Pen-injector [Pharmacy Med Name: HUMALOG 100 U/ML KWIK PEN INJ3ML] 15 mL 2 Sig: INJECT UNDER THE SKIN TWICE DAILY WITH SLIDING SCALE. NO MORE THAN 40 UNITS PER DAY Not Delegated - Insulin Protocol Failed - 12/17/2021 7:26 PM Failed - This refill cannot be delegated Passed - Visit with relevant provider in past 12 months or upcoming 90 days Recent Visits Date Type Provider Dept 11/16/21 Office Visit Fco Llanes MD [facility] 03/30/21 Office Visit Fco Llanes MD [facility] Showing recent visits within past 365 days and meeting all other requirements Future Appointments Date Type Provider Dept 02/15/22 Appointment Fco Llanes MD [facility] [place] Showing future appointments within next 90 days and meeting all other requirements documented in this encounter Plan of Treatment Upcoming Encounters Date Type Department Care Team (Late st Contact Info) Description 10/11/2024 1:15 PM GUIDE DOG TRAINER [facility] Visit [facility] [place] [address] [place] [address] Della Whaley DO 2 [facility] [facility] [address] [place] [address] documented as of this encounter Visit Diagnoses Diagnosis Type 2 diabetes mellitus without complication, without long-term current use of insulin (HCC) documented in this encounter Additional Health Concerns Assessment Noted Time PHQ-9 Depression Total Score: 5 11/17/19 22 9:00 AM CDT documented as of this encounter Care Teams Channel Man Relationship Specialty Start Date End Date Fco Llanes MD PCP - General Family Medicine 07/14/20 01/28/24 Della Whaley DO 2 [facility] [address] [address] PCP - General Family Medicine 01/30/24 Uche Haley MD [address] [address] Consulting Physician General Surgery 02/21/23 documented as of this encounter
--- OUTSIDE RECORDS SUMMARY | 2024-10-05 15:48 | XMS_ITS ---
Author Organization [facility] deandra Address [address] [facility] [address] [place] [address] Care Team Providers Care Broom Handle Dipper Name Role Phone Korin Beltran Unavailable [phone] zzzzMigration, zzzzProvider Unavailable Unav ailable REASON FOR VISIT [facility] Encounters Encounter Location Date Provider Diagnosis [facility] [address] [facility] [address] [place] [address] 05/31/2023 zzzzProvider zzzzMigration Plan Of Treatment No Information Progress Notes * Ana CARMICHAELOB:1995 (29 yo F)Acc No.[id number]:05/31/2023 Patient: Katy MERCER :1995 A ge:27 Y S ex:Female Address:[facility], [facility] [address] Subjective: * Chief Complaints: * E MR-Yasir * Medical History: * Surgical History: * Hospitalization/Major Diagno stic Procedure: * Medications: Objective: * Vitals: * Physical Examination: Assessment: Plan: * Treatment: * Procedure Codes: * * Date:
--- OUTSIDE RECORDS SUMMARY | 2024-10-05 15:48 | XMS_ITS | Encounter Summary ---
Author Organization [facility] Address [address] [facility] [place] [address] Phone Care Team Providers Care Leaf Conditioner Helper Name Role Phone Fco Llanes MD Primary Care Provider Uche Haley MD Unavailable [phone] Della Whaley DO Primary Care Provider [phone] Reason for Visit * Reason Comments Medication Refill Encounter Details Date Type Department Care Team (Late st Contact Info) Description 05/10/2021 Refill [facility] Medical Group - Family Medicine [facility] [address]2 [place] [phone] Fco Llanes MD [address] [place] [address] Medication Refill Social History Tobacco Use Types [...] Sex Assigned at Female 07/10/2023 4:42 AM KINESIOTHERAPIST Legal Sex Female 3:32 PM KINESIOTHERAPIST Gender Identity Female 07/10/2023 4:42 AM KINESIOTHERAPIST Sexual Orientation Straight 07/10/2023 4: 42 AM KINESIOTHERAPIST documented as of this encounter Miscellaneous Notes * Telephone Encounter - Beatrice Cid RN - 05/11/2021 10:19 AM CDT [place] 04/07/21 Medication failed the protocol, provider to review and approve the medication order if appropriate. Requested Prescriptions Pending Prescriptions Disp Refills zolpidem (AMBIEN) 10 MG Tablet [Pharmacy Med Name: ZOLPIDEM 10MG TABLETS] 30 Tablet Sig: TAKE 1 TABLET BY MOUTH EVERY NIGHT NEEDED FOR SLEEP There is no refill protocol information for this order documented in this encounter Plan of Treatment Upcoming Encounters Date Type Department Care Team (Late st Contact Info) Description 10/11/2024 1:15 PM KINESIOTHERAPIST [facility] Visit [facility] [address] [place] [address] Della Whaley DO 2 [facility] [address] [address] documented as of this encounter Visit Diagnoses Diagnosis Insomnia, unspecified type- Primary documented in this encounter Additional Health Concerns Infection Onset Date Last Indicated Resolved Time COVID - 19 11/26/2021 11/26/2021 12/16/2021 12:1 7 AM CDT Assessment Noted Time PHQ-9 Depression Total Score: 14 020 9:39 AM KINESIOTHERAPIST documented as of this encounter Care Teams Leaf Conditioner Helper Relationship Specialty Start Date End Date Fco Llanes MD PCP - General Family Medicine 07/14/20 01/28/24 Della Whaley DO 2 [facility] [address] [facility] [address] [place] [address] PCP - General Family Medicine 01/30/24 Uche Haley MD [address] [place] [address] [address] [address] Consulting Physician General Surgery 02/21/23 documented as of this encounter
--- OUTSIDE RECORDS SUMMARY | 2024-10-05 15:48 | XMS_ITS | Encounter Summary ---
Author Organization [facility] Address [address] [facility] [address] Phone Care Team Providers Care Hem Inspector Name Role Phone Fco Llanes MD Primary Care Provider [phone] Uche Haley MD Unavailable [phone] Della Whaley DO Primary Care Provider [phone] Reason for Visit * Reason Comments Medication Refill Encounter Details Date Type Department Care Team (Late st Contact Info) Description 10/24/2023 Refill [facility] Medical Group - Family Medicine [facility] [address] [place] [phone] Fco Llanes MD [address] [place] [address] Medication Refill Social History Tobacco Use Types [...] Sex Assigned at Female 07/10/2023 4:42 AM AGRICULTURAL SERVICES DIRECTOR Legal Sex Female 3:32 PM AGRICULTURAL SERVICES DIRECTOR Gender Identity Female 07/10/2023 4:42 AM AGRICULTURAL SERVICES DIRECTOR Sexual Orientation Straight 07/10/2023 4: 42 AM AGRICULTURAL SERVICES DIRECTOR documented as of this encounter Miscellaneous Notes * Telephone Encounter - Beatrice Cid RN - 10/24/2023 12:15 PM CDT Medication(s) [facility] Medication Refill Standing Order for Pediatricand Adult Patients. Requested Prescriptions Pending Prescriptions Disp Refills Ozempic, 2 MG/DOSE, 8 MG/3ML Solution Pen-injector [Pharmacy Med Name: OZEMPIC 2MG PER DOSE (8MG/3ML) PFP] 3 mL 0 Sig: INJECT 2 MG UNDER THE SKIN ONE DAY A WEEK GLP-1 Agonists Protocol Passed - 10/24/2023 7:56 AM Passed - Lipid panel result on [...] [place] 05/23/23 Office Visit Fco Llanes MD [facility] [place] Showing recent visits within past 182 days [...] st Contact Info) Description 10/11/2024 1:15 PM AGRICULTURAL SERVICES DIRECTOR [facility] Visit [facility] - [place] #[address] [place] [address] Della Whaley DO 2 [facility] [address] [place] [address] documented as of this encounter Visit Diagnoses Not on filedocumented in this encounter Additional Health Concerns Assessment Noted Time PHQ-9 Depression Total Score: 5 11/17/19 22 9:00 AM CDT documented as of this encounter Care Teams Hem Inspector Relationship Specialty Start Date End Date Fco Llanes MD PCP - General Family Medicine 07/14/20 01/28/24 Della Whaley DO 2 [facility] [address] [place] [address] PCP - General Family Medicine 01/30/24 Uche Haley MD #[address] [address] Consulting Physician General Surgery 02/21/23 documented as of this encounter
--- OUTSIDE RECORDS SUMMARY | 2024-10-05 15:48 | XMS_ITS | Encounter Summary ---
Author Organization [facility] Address [address] [facility] [place] [address] Phone Care Team Providers Care Burglar Alarm Assembler Name Role Phone Fco Llanes MD Primary Care Provider [phone] Uche Haley MD Unavailable Della Whaley DO Primary Care Provider [phone] Reason for Visit * Reason Comments Medication Refill Encounter Details Date Type Department Care Team (Late st Contact Info) Description 01/18/2021 Refill [facility] Medical Group - Family Medicine [facility] #2 [place] [phone] Fco Llanes MD #1 [place] [address] Medication Refill Social History Tobacco Use Types Packs/Day Years Used Date Smoking Tobacco: Never Smokeless Tobacco: Never Alcohol Use Standard Drinks/Week Comments No 0 (1 standard drink = 0.6 oz pur e alcohol) PHQ-2 Answer Date Recorded Total Score - Questions 1-9 14 07/11 Comments No Sex and Gender Information Value Date Recorded Sex Assigned at Female 07/10/2023 4:42 AM TAXATION CONSULTANT Legal Sex Female 3:32 PM TAXATION CONSULTANT Gender Identity Female 07/10/2023 4:42 AM TAXATION CONSULTANT Sexual Orientation Straight 07/10/2023 4: 42 AM TAXATION CONSULTANT documented as of this encounter Miscellaneous Notes * Telephone Encounter - Beatrice Cid RN - 01/18/2021 3:41 PM CDT Per nursing clinical judgement, provider to review and approve the medication(s) order(s) if appropriate. Requested Prescriptions Pending Prescriptions Disp Refills Basaglar KwikPen 100 UNIT/ML Solution Pen-injector [Pharmacy Med Name: BASAGLAR 100 U/ML KWIKPEN INJ 3ML] 6 mL 2 Sig: ADMINISTER 15 UNITS UNDER THE SKIN EVERY NIGHT [facility] Endocrinology: Diabetes - Insulins Passed - 01/18/2021 9:52 AM Passed - Valid encounter within last 12 months Past Office Visits Recent Outpatient Visits 2 months ago Type 2 diabetes mellitus without complication, without long-term current use of insulin ([facility] Fco Tian MD 6 months ago Type 2 diabetes mellitus without complication, without long-term current use of insulin ([facility]) [facility] Fco Patten MD Upcoming Appointments Future Appointments In 2 weeks Fco Llanes MD [facility] Recent and Past Visits Recent Visits Date Type Provider Dept 11/03/20 Office Visit Fco Llanes MD [facility] 07/21/20 Office Visit [facility] [place] Showing recent visits within past 460 days with a meds authorizing provider and meeting all other requirements Future Appointments Date Type Provider Dept 02/05/21 Appointment Fco Llanes MD [facility] [place] Showing future appointments within next 90 days with a meds authorizing provider and meeting all other requirements Passed - Last BP in normal range BP Readings from Last 1 Encounters: 11/03/20 134/72 documented in this encounter Plan of Treatment Upcoming Encounters Date Type Department Care Team (Late st Contact Info) Description 10/11/2024 1:15 PM TAXATION CONSULTANT Office Visit [facility] #2 [place] [phone] Della Whaley DO [address] [facility] [facility] [address] [place] [address] documented as of this encounter Visit Diagnoses Not on filedocumented in this encounter Additional Health Concerns Infection Onset Date Last Indicated Resolved Time COVID - 19 11/26/2021 11/26/2021 12/16/2021 12:1 7 AM CDT Assessment Noted Time PHQ-9 Depression Total Score: 14 020 9:39 AM TAXATION CONSULTANT documented as of this encounter Care Teams Burglar Alarm Assembler Relationship Specialty Start Date End Date Fco Llanes MD PCP - General Family Medicine 07/14/20 01/28/24 Della Whaley DO [address] [facility] [facility] [address] [place] [address] PCP - General Family Medicine 01/30/24 Uche Haley MD #[address] [address] Consulting Physician General Surgery 02/21/23 documented as of this encounter
--- OUTSIDE RECORDS SUMMARY | 2024-10-05 15:48 | XMS_ITS | Encounter Summary ---
Author Organization [facility] Address [address] [facility] [facility] [place] [address] Phone Care Team Providers Care Senior Clinical Study Manager Name Role Phone Fco Llanes MD Primary Care Provider [phone] Uche Haley MD Unavailable [phone] Della Whaley DO Primary Care Provider Reason for Visit * Reason Comments Medication Refill Encounter Details Date Type Department Care Team (Late st Contact Info) Description 10/21/2023 Refill [facility] Medical [facility] - Family Medicine [facility] [address]2 [place] [address] Fco Llanes MD [address]1 [place] [address] Medication Refill Social History Tobacco Use Types [...] Sex Assigned at Female 07/10/2023 4:42 AM CARBIDE TOOL MAKER Legal Sex Female 3:32 PM CARBIDE TOOL MAKER Gender Identity Female 07/10/2023 4:42 AM CARBIDE TOOL MAKER Sexual Orientation Straight 07/10/2023 4: 42 AM CARBIDE TOOL MAKER documented as of this encounter Miscellaneous Notes * Telephone Encounter - Beatrice Cid RN - 10/21/2023 11:47 AM CDT Medication(s) refilled and signed per [facility] Chronic Medication Refill Standing Order for Pediatricand Adult Patients. Requested Prescriptions Pending Prescriptions Disp Refills levothyroxine (SYNTHROID) 125 MCG Tablet [Pharmacy Med Name: LEVOTHYROXINE 0.125MG (125MCG) TAB] 90Tablet 1 Sig: TAKE 1 TABLET BY MOUTH DAILY Thyroid Hormones Protocol Passed - 10/21/2023 5:44 AM Passed - No test in the past 12 months or most recent test was negative Passed - Visit with relevant provider in past 12 months or upcoming 90 days Recent Visits Date Type Provider Dept 09/26/23 Office Visit Fco Llanes MD [facility] [place] 05/23/23 Office Visit Fco Llanes MD [facility] 01/24/23 Office Visit Fco Llanes MD [facility] Showing recent visits within past 365 days and meeting all other requirements Future Appointments No visits were found meeting these conditions. Showing future appointments within next 90 days and meeting all other requirements Passed - No active on record Passed - Normal TSH in past 12 months TSH Date Value Ref Range Status 09/26/2023 0.958 0.300 - 5.000 mIU/L Final documented in this encounter Plan of Treatment Upcoming Encounters Date Type Department Care Team (Late st Contact Info) Description 10/11/2024 1:15 PM CARBIDE TOOL MAKER [facility] - [place] [address] [place] [address] Della Whaley, DO 2 [facility]. [address] [place] [address] documented as of this encounter Visit Diagnoses Not on filedocumented in this encounter Additional Health Concerns Assessment Noted Time PHQ-9 Depression Total Score: 5 11/17/19 22 9:00 AM CDT documented as of this encounter Care Teams Senior Clinical Study Manager Relationship Specialty Start Date End Date Fco Llanes MD PCP - General Family Medicine 07/14/20 01/28/24 Della Whaley DO [address] [facility] [address] [facility] [facility]. [address] [place] [address] PCP - General Family Medicine 01/30/24 Uche Haley MD [address] [facility] [address] [place] [address] Consulting Physician General Surgery 02/21/23 documented as of this encounter
--- OUTSIDE RECORDS SUMMARY | 2024-10-05 15:48 | XMS_ITS | Encounter Summary ---
Author Organization [facility] Address [address] [facility] [place] [address] Phone Care Team Providers Care Seo Associate Name Role Phone Fco Llanes MD Primary Care Provider [phone] Uche Haley MD Unavailable [phone] Della Whaley DO Primary Care Provider [phone] Reason for Visit * Reason Comments Medication Refill Encounter Details Date Type Department Care Team (Late st Contact Info) Description 07/07/2023 Refill [facility] Medical Group - Family Medicine [facility] [address] [place] [address] Fco Llanes MD [address]1 [place] [address] Medication Refill Social History Tobacco Use Types [...] Sex Assigned at Female 07/10/2023 4:42 AM MANAGER OF PURCHASING Legal Sex Female 3:32 PM MANAGER OF PURCHASING Gender Identity Female 07/10/2023 4:42 AM MANAGER OF PURCHASING Sexual Orientation Straight 07/10/2023 4: 42 AM MANAGER OF PURCHASING documented as of this encounter Miscellaneous Notes * Telephone Encounter - Beatrice Cid RN - 07/07/2023 3:57 PM CST PDMP 05/12/23 Medication failed the protocol, provider to review and approve the medication order if appropriate. Requested Prescriptions Pending Prescriptions Disp Refills zolpidem (AMBIEN) 10 MG Tablet [Pharmacy Med Name: ZOLPIDEM 10MG TABLETS] 30 Tablet 0 Sig: TAKE 1 TABLET BY MOUTH EVERY NIGHT NEEDED FOR SLEEP Not Delegated - Off Protocol Failed - 07/07/2023 7:41 AM Failed - This refill cannot be delegated Passed - Visit with relevant provider in past 12 months or upcoming 90 days Recent Visits Date Type Provider Dept 05/23/23 Office Visit Fco Llanes MD [facility] 01/24/23 Office Visit Fco Llanes MD [facility] 09/20/22 Office Visit Fco Llanes MD [facility] [place] Showing recent visits within past 365 days and meeting all other requirements Future Appointments Date Type Provider Dept 09/26/23 Appointment Fco Llanes MD [facility] Showing future appointments within next 90 days and meeting all other requirements GER OF PURCHASING documented in this encounter Plan of Treatment Upcoming Encounters Date Type Department Care Team (Late st Contact Info) Description 10/11/2024 1:15 PM MANAGER OF PURCHASING Office Visit [facility] Medical Group - Family Medicine - [place] [address] [place] [address] Della Whaley, DO 2 [facility] [address] [place] [address] documented as of this encounter Visit Diagnoses Diagnosis Insomnia, unspecified type documented in this encounter Additional Health Concerns Assessment Noted Time PHQ-9 Depression Total Score: 5 11/17/19 22 9:00 AM CDT documented as of this encounter Care Teams Seo Associate Relationship Specialty Start Date End Date Fco Llanes MD PCP - General Family Medicine 07/14/20 01/28/24 Della Whaley DO [address] [facility] [facility] [address] [place] [address] PCP - General Family Medicine 01/30/24 Uche Haley MD [address] [address] Consulting Physician General Surgery 02/21/23 documented as of this encounter
--- OUTSIDE RECORDS SUMMARY | 2024-10-05 15:48 | XMS_ITS | Encounter Summary ---
Author Organization [facility] Address [address] [facility] [place] [address] Phone Care Team Providers Care Brasswind Instrument Repairer Name Role Phone Fco Llanes MD Primary Care Provider [phone] Uche Haley MD Unavailable [phone] Della Whaley DO Primary Care Provider [phone] Reason for Visit * Reason Comments Medication Refill Encounter Details Date Type Department Care Team (Late st Contact Info) Description 12/22/[address] [facility] Medical Group - Family Medicine [facility] [address]2 [place] [phone] Fco Llanes MD [address] [place] [address] Medication Refill Social History Tobacco Use Types Packs/Day Years Used Date Smoking Tobacco: Never Smokeless Tobacco: Never Alcohol Use Standard Drinks/Week Comments No 0 (1 standard drink = 0.6 oz pur e alcohol) PHQ-2 Answer Date Recorded Total Score - Questions 1-9 14 07/11 Comments No Sex and Gender Information Value Date Recorded Sex Assigned at Female 07/10/2023 4:42 AM MANAGER IN HOME Legal Sex Female 3:32 PM MANAGER IN HOME Gender Identity Female 07/10/2023 4:42 AM MANAGER IN HOME Sexual Orientation Straight 07/10/2023 4: 42 AM MANAGER IN HOME documented as of this encounter Miscellaneous Notes * Telephone Encounter - Piedad Caceres RN - 12/22/2020 7:30 AM CDT Medication failed the protocol, provider to review and approve the medication order if appropriate.PDMP reviewed. Needs UDS Requested Prescriptions Pending Prescriptions Disp Refills zolpidem (AMBIEN) 10 MG Tablet [Pharmacy Med Name: ZOLPIDEM 10MG TABLETS] 30 Tablet Sig: TAKE 1 TABLET BY MOUTH EVERY NIGHT NEEDED FOR SLEEP [facility] Not Delegated - Psychiatry: Anxiolytics/Hypnotics Failed - 12/22/2020 7:30 AM Failed - This refill cannot be delegated Passed - Valid encounter within last 6 months Past Office Visits Recent Outpatient Visits 1 month ago Type 2 diabetes mellitus without complication, without long-term current use of insulin([facility]) [facility] Fco Tian MD 5 months ago Type 2 diabetes mellitus without complication, without long-term current use of insulin ([facility]) [facility] Fco Patten MD Upcoming Appointments Future Appointments In 1 month Fco Llanes MD [facility] OPER[facility] - Recent and Past Visits Recent Visits Date Type Provider Dept 11/03/20 Office Visit Fco Llanes MD [facility] 07/21/20 Office Visit Fco Llanes MD [facility] [...] Contact Info) Description 10/11/2024 1:15 PM MANAGER IN HOME Office Visit [facility] [place] [address] [place] [address] Della Wh[address] DO [address] [facility] [facility] [place]. [address] [place] [address] documented as of this encounter Visit Diagnoses Not on filedocumented in this encounter Additional Health Concerns Infection Onset Date Last Indicated Resolved Time COVID - 19 11/26/2021 11/26/2021 12/16/2021 12:1 7 AM CDT Assessment Noted Time PHQ-9 Depression Total Score: 14 020 9:39 AM MANAGER IN HOME documented as of this encounter Care Teams Brasswind Instrument Repairer Relationship Specialty Start Date End Date Fco Llanes MD PCP - General Family Medicine 07/14/20 01/28/24 Della Whaley DO [address] [facility] [address] [facility] [facility] [address] [place] [address] PCP - General Family Medicine 01/30/24 Uche Haley MD [address] [place] [address] [address] Consulting Physician General Surgery 02/21/23 documented as of this encounter
--- OUTSIDE RECORDS SUMMARY | 2024-10-05 15:48 | XMS_ITS | Encounter Summary ---
Author Organization [facility] Address [address] [facility] [place] [address] Phone Care Team Providers Care Parking Lot Attendant And Cashier Name Role Phone Fco Llanes MD Primary Care Provider [phone] Uche Haley MD Unavailable [phone] Della Whaley DO Primary Care Provider [phone] Reason for Visit * Reason Comments Medication Refill Encounter Details Date Type Department Care Team (Late st Contact Info) Description 06/30/2023 Refill [facility] Medical Group - Family Medicine [facility] [address]2 [place] [address] uXan Pierre M, ENTERPRISE RESOURCE PLANNER, HIGH SCHOOL BUSINESS TEACHER [address] [place] [address] Medication Refill Social History Tobacco Use Types [...] Sex Assigned at Female 07/10/2023 4:42 AM TRAIL MAINTENANCE WORKER Legal Sex Female 3:32 PM TRAIL MAINTENANCE WORKER Gender Identity Female 07/10/2023 4:42 AM TRAIL MAINTENANCE WORKER Sexual Orientation Straight 07/10/2023 4: 42 AM TRAIL MAINTENANCE WORKER documented as of this encounter Miscellaneous Notes * Telephone Encounter - Beatrice Cid RN - 07/01/2023 2:47 PM CST Name from pharmacy: OZEMPIC 2MG PER DOSE (1X8MG PEN) Will file in chart as: Ozempic, 2 MG/DOSE, 8 MG/3ML Solution Pen-injector The original prescription was reordered on 07/01/2023 by Fco Llanes MD. L MAINTENANCE WORKER * Telephone Encounter - Beatrice Cid RN - 07/01/2023 7:44 AM CST duplicate L MAINTENANCE WORKER documented in this encounter Plan of Treatment Upcoming Encounters Date Type Department Care Team (Late st Contact Info) Description 10/11/2024 1:15 PM TRAIL MAINTENANCE WORKER [facility] [address] [place] [address] Della Whaley DO 2 [facility] EVELYNE [address] [address] documented as of this encounter Visit Diagnoses Not on filedocumented in this encounter Additional Health Concerns Assessment Noted Time PHQ-9 Depression Total Score: 5 11/17/19 22 9:00 AM CDT documented as of this encounter Care Teams Parking Lot Attendant And Cashier Relationship Specialty Start Date End Date Fco Llanes MD PCP - General Family Medicine 07/14/20 01/28/24 Della Whaley DO [address] [facility] [address] [facility]. [address] [place] [address] PCP - General Family Medicine 01/30/24 Uche Haley MD #[address] [facility] [address] [facility] [address] [place] [address] Consulting Physician General Surgery 02/21/23 documented as of this encounter
--- OUTSIDE RECORDS SUMMARY | 2024-10-05 15:48 | XMS_ITS | Encounter Summary ---
Author Organization [facility] Address [address] [facility] [place] [address] Phone Care Team Providers Care Meteorological Aide Name Role Phone Fco Llanes MD Primary Care Provider [phone] Uche Haley MD Unavailable [phone] Della Whaley DO Primary Care Provider [phone] Reason for Visit * Reason Comments Medication Refill Encounter Details Date Type Department Care Team (Late st Contact Info) Description 04/12/2022 Refill [facility] - [facility] #2 [place] [address] Fco Llanes MD [address]1 [place] [address] Medication Refill Social History Tobacco Use Types [...] Sex Assigned at Female 07/10/2023 4:42 AM CLINICAL IMPLEMENTATION SPECIALIST Legal Sex Female 3:32 PM CLINICAL IMPLEMENTATION SPECIALIST Gender Identity Female 07/10/2023 4:42 AM CLINICAL IMPLEMENTATION SPECIALIST Sexual Orientation Straight 07/10/2023 4: 42 AM CLINICAL IMPLEMENTATION SPECIALIST documented as of this encounter Miscellaneous Notes * Telephone Encounter - Beatrice Cid RN - 04/12/2022 12:50 PM CDT Medication failed the protocol, provider to review and approve the medication order if appropriate. Requested Prescriptions Pending Prescriptions Disp Refills Lantus SoloStar 100 UNIT/ML Solution Pen-injector [Pharmacy Med Name: LANTUS SOLOSTAR PEN INJ 3ML] 6 mL 3 Sig: ADMINISTER 15 UNITS UNDER THE SKIN EVERY NIGHT Not Delegated - Insulin Protocol Failed - 04/12/2022 12:01 PM Failed - This refill cannot be delegated Passed - Visit with relevant provider in past 12 months or upcoming 90 days Recent Visits Date Type Provider Dept 11/16/21 Office Visit Fco Llanes MD [facility] [place] Showing recent visits within past 365 days and meeting all other requirements Future Appointments Date Type Provider Dept 04/19/22 Appointment Fco Llanes MD [facility] Showing future appointments within next 90 days and meeting all other requirements documented in this encounter Plan of Treatment Upcoming Encounters Date Type Department Care Team (Late st Contact Info) Description 10/11/2024 1:15 PM CLINICAL IMPLEMENTATION SPECIALIST [facility] - Family Medicine - [place] [address] [place] [address] Della Whaley, DO 2 [address] [facility] [facility]. [address] [place] [address] documented as of this encounter Visit Diagnoses Diagnosis Type 2 diabetes mellitus without complication, without long-term current use of insulin (HCC) documented in this encounter Additional Health Concerns Assessment Noted Time PHQ-9 Depression Total Score: 5 11/17/19 22 9:00 AM CDT documented as of this encounter Care Teams Meteorological Aide Relationship Specialty Start Date End Date Llanes, Fco M, MD PCP - General Family Medicine 07/14/20 01/28/24 Della Whaley DO [address] [facility] [address] [place] [address] PCP - General Family Medicine 01/30/24 Uche aHley MD #2 [facility] [address] [place] [address] Consulting Physician General Surgery 02/21/23 documented as of this encounter
--- OUTSIDE RECORDS SUMMARY | 2024-10-05 15:49 | XMS_ITS | Encounter Summary ---
Author Organization [facility] Address [address] [facility] [place] [address] Phone Care Team Providers Care Sociology Teacher Name Role Phone Fco Llanes MD Primary Care Provider [phone] Uche Haley MD Unavailable [phone] Della Whaley DO Primary Care Provider [phone] Reason for Visit * Reason Comments Medication Refill Encounter Details Date Type Department Care Team (Late st Contact Info) Description 05/23/2023 Refill [facility] Medical Group - Family Medicine [facility] #2 [place] [phone] Fco Llanes MD #1 [place] [address] Medication Refill Social History Tobacco Use Types [...] Sex Assigned at Female 07/10/2023 4:42 AM NECKTIE STITCHER Legal Sex Female 3:32 PM NECKTIE STITCHER Gender Identity Female 07/10/2023 4:42 AM NECKTIE STITCHER Sexual Orientation Straight 07/10/2023 4: 42 AM NECKTIE STITCHER COVID-19 Exposure Response Date Recorded In the last 10 days, have yo u been in contact with someone who was confirmed or suspected to have Coronavirus/COVID-19? No / Unsure 05/23/2023 10:27 AM CDT documented as of this encounter Miscellaneous Notes * Telephone Encounter - Beatrice Cid RN - 05/23/2023 4:58 PM CDT Medication failed the protocol, provider to review and approve the medication order if appropriate. Requested Prescriptions Pending Prescriptions Disp Refills HumaLOG KwikPen 100 UNIT/ML Solution Pen-injector [Pharmacy Med Name: HUMALOG 100 U/ML KWIK PEN INJ3ML] 15 mL 2 Sig: USE TO INJECT UNDER THE SKIN PER SLIDING SCALE, MAX 40 UNITS PER DAY Not Delegated - Insulin Protocol Failed - 05/23/2023 4:12 PM Failed - This refill cannot be delegated Passed - Visit with relevant provider in past 12 months or upcoming 90 days Recent Visits Date Type Provider Dept 01/24/23 Office Visit Fco Llanes MD [facility] 09/20/22 Office [facility] [place] Showing recent visits within past 365 days and meeting all other requirements Today's Visits Date Type Provider Dept 05/23/23 Office Visit [facility] [place] Showing today's visits and meeting all other requirements Future Appointments No visits were found meeting these conditions. Showing future appointments within next 90 days and meeting all other requirements documented in this encounter Plan of Treatment Upcoming Encounters Date Type Department Care Team (Late st Contact Info) Description 10/11/2024 1:15 PM NECKTIE STITCHER Office Visit [facility] Medical Group - Family Medicine - [place] [address] [place] [phone] Della Whaley, DO 2 [facility] [address] [place] [address] documented as of this encounter Visit Diagnoses Diagnosis Type 2 diabetes mellitus without complication, without long-term current use of insulin (HCC) documented in this encounter Additional Health Concerns Assessment Noted Time PHQ-9 Depression Total Score: 5 11/17/19 22 9:00 AM CDT documented as of this encounter Care Teams Sociology Teacher Relationship Specialty Start Date End Date Fco Llanes MD PCP - General Family Medicine 07/14/20 01/28/24 Della Whaley DO 2 [address] [facility] [address] [place] [address] PCP - General Family Medicine 01/30/24 Uche Haley MD #[address] [address] Consulting Physician General Surgery 02/21/23 documented as of this encounter
--- OUTSIDE RECORDS SUMMARY | 2024-10-05 15:49 | XMS_ITS | Patient Health Record ---
Author Organization [facility] Address [address] [place] [address] Care Team Providers Care Assembler Dc Field Ring Name Role Phone DevinKorin Unavailable [phone] Reason For Referral No Information Plan Of Treatment No Information
--- OUTSIDE RECORDS SUMMARY | 2024-10-05 15:49 | XMS_ITS | Encounter Summary ---
Author Organization [facility] Address [address] [facility] [place] [address] Phone Care Team Providers Care Nail Making Machine Tender Name Role Phone Fco Llanes MD Primary Care Provider [phone] Uche Haley MD Unavailable [phone] Della Whaley DO Primary Care Provider [phone] Reason for Visit * Reason Comments Medication Refill Encounter Details Date Type Department Care Team (Late st Contact Info) Description 10/11/2023 Refill [facility] - Family Medicine [facility] #2 [place] [address] Fco Llanes MD #1 [place] [address] Medication Refill Social History Tobacco Use Types [...] Sex Assigned at Female 07/10/2023 4:42 AM WORKFORCE SERVICES REPRESENTATIVE Legal Sex Female 3:32 PM WORKFORCE SERVICES REPRESENTATIVE Gender Identity Female 07/10/2023 4:42 AM WORKFORCE SERVICES REPRESENTATIVE Sexual Orientation Straight 07/10/2023 4: 42 AM WORKFORCE SERVICES REPRESENTATIVE documented as of this encounter Miscellaneous Notes * Telephone Encounter - Evangelina Soler RN - 10/12/2023 10:10 AM WORKFORCE SERVICES REPRESENTATIVE Medication failed the protocol, provider to review and approve the medication order if appropriate. Requested Prescriptions Pending Prescriptions Disp Refills cyclobenzaprine (FLEXERIL) 10 MG Tablet [Pharmacy Med Name: CYCLOBENZAPRINE 10MG TABLETS] 42 Tablet0 Sig: TAKE 1 TABLET BY MOUTH THREE TIMES DAILY NEEDED FOR MUSCLE SPASMS Not Delegated - Muscle Relaxants Protocol Failed - 10/11/2023 3:57 AM Failed - This refill cannot be delegated Passed - Visit with relevant provider in past 12 months or upcoming 90 days Recent Visits Date Type Provider Dept 09/26/23 Office Visit Fco Llanes MD [facility] [place] 05/23/23 Office Visit Fco Llanes MD [facility] 01/24/23 Office Visit Fco Llanes MD [facility] Showing recent visits within past 365 days and meeting all other requirements Future Appointments No visits were found meeting these conditions. Showing future appointments within next 90 days and meeting all other requirements FORCE SERVICES REPRESENTATIVE documented in this encounter Plan of Treatment Upcoming Encounters Date Type Department Care Team (Late st Contact Info) Description 10/11/2024 1:15 PM WORKFORCE SERVICES REPRESENTATIVE Office Visit [facility] - Family Medicine - [place] #[address] [place] [address] Della Whaley, DO 2 [facility] [facility] [address] [place] [address] documented as of this encounter Visit Diagnoses Diagnosis Chronic tension-type headache, not intractable Chronic tension type headache documented in this encounter Additional Health Concerns Assessment Noted Time PHQ-9 Depression Total Score: 5 11/17/19 22 9:00 AM CDT documented as of this encounter Care Teams Nail Making Machine Tender Relationship Specialty Start Date End Date Fco Llanes MD PCP - General Family Medicine 07/14/20 01/28/24 Della Whaley DO [address] [facility] [facility] [facility] [facility] [address] [place], [place] [phone] PCP - General Family Medicine 01/30/24 Uche Haley MD [address] [address] Consulting Physician General Surgery 02/21/23 documented as of this encounter
--- OUTSIDE RECORDS SUMMARY | 2024-10-05 15:49 | XMS_ITS | Clinical Summary ---
Author Organization [facility] Address [address] [place] [address] Care Team Providers Care Solution Designer Name Role Phone Lacey Samaniego NP Unavailable Celena Chavez MD Primary Care Provider [phone] Allergies Active Allergy Reactions Criticality Noted Date Comments Nsaids (Non-Steroidal Anti-Inflammatory Drug) Other (See comments) Low 01/08/2019 Per pt report, her kidney dr encouraged her not to take NSAIDS. Medications biotin 1 mg capsule 1 mg. 0 0 6 Active Additional Information Patient not taking.Reported on 04/13/2024 multivitamin tablet tablet take 1 tablet by oral route every day with food 0 0 4 Active albuterol HFA (PROAIR HFA) 90 mcg/actuation inhaler inhale 2 puff by inhalation route every 4 - 6 hours as needed 1 Inhaler 1 6 Active gabapentin (NEURONTIN) 100 mg capsule TAKE ONE CAPSULE BY MOUTH TWICE DAILY 60 capsule 3 7 Active Additional Information Patient not taking.Reported on 04/13/2024 LORazepam (ATIVAN) 1 mg tablet Take 1 tablet (1 mg total) by mouth every 6 (six) hours as needed for anxiety. 30 tablet 1 7 Active Additional Information Patient not taking.Reported on 04/13/2024 sertraline (ZOLOFT) 100 mg tablet Take 1 tablet (100 mg total) by mouth daily. 90 tablet 3 7 Active blood glucose diagnostic (TRUE METRIX GLUCOSE TEST STRIP) strip Use to check glucose 1 x daily 100 each 11 7 Active blood-glucose meter (TRUE METRIX GLUCOSE METER) misc Use to check glucose 1 x daily 1 each 7 Active FLUZONE QUAD [id number], PF, 60 mcg (15 mcg x 4)/0.5 mL syringe 7 Active glimepiride (AMARYL) 4 mg tabletIndicatio ns:type 2 diabetes mellitus Take 1 tablet (4 mg total) by mouth daily before breakfast. 30 tablet 11 7 Active metFORMIN (GLUCOPHAGE) 500 mg tablet TAKE TWO TABLETS BY MOUTH TWICE DAILY WITH THE MORNING AND EVENING MEALS 120 tablet 5 7 Active levothyroxine (SYNTHROID, LEVOTHROID) 125 mcg tablet TAKE ONE TABLET BY MOUTH ONCE DAILY 90 tablet 2 8 Active busPIRone (BUSPAR) 15 mg tablet TAKE TWO TABLETS BY MOUTH TWICE DAILY DIRECTED 120 tablet 8 Active fenofibrate (TRIGLIDE) 160 mg tablet TAKE ONE TABLET BY MOUTH ONCE DAILY 30 tablet 8 Active amitriptyline (ELAVIL) 25 mg tablet Take by mouth nightly 3 Active cyclobenzaprine (FLEXERIL) 10 mg tablet Take 1 tablet (10 mg total) by mouth 3 (three) times a day as needed 4 Active LANTUS 100 unit/mL (3 mL) pen for injection ADMINISTER 15 UNITS UNDER THE SKIN EVERY NIGHT 4 Active insulin lispro (HumaLOG) 100 unit/mL pen for injection INJECT UNDER THE SKIN TWICE DAILY PER SLIDING SCALE. NO MORE THAN 40 UNITS PER DAY 3 Active losartan (COZAAR) 25 mg tablet Take 1 tablet (25 mg total) by mouth daily 4 Active omega 7-hsq-rmb-fish oil 300 mg (120 mg- 180mg)-1,000 mg capsule [address] (PROTONIX) 40 mg EC tablet Take 1 tablet (40 mg total) by mouth daily 4 Active Ozempic 2 mg/dose (8 mg/3 mL) pen injector injection Inject 2 mg under the skin once a week 4 Active zolpidem (AMBIEN) 10 mg tablet 1 tablet (10 mg total) 4 Active Active Problems Problem Noted Date Diagnosed Date Hypertriglyceridemia 04/07/2017 Dysuria 03/06/2017 Assessment & Plan (03/07/2017 10:28 AM CDT): Urine dip was negative. Recommended increasing fluid intake. I asked her to call me if symptoms persist. Asthma 06/17/2016 Overview (11/16/2016): Asthma Assessment & Plan (03/07/2017 10:28 AM CDT): Uses inhaler as needed. She has only has to use it a few times this season. Diabetes mellitus 08/23/2014 Overview (11/16/2016): Diabetes Assessment & Plan (03/07/2017 10:26 AM CDT): Will check hga1c today and results will be available for Dr. Daly, endocrinology when she establishes with him. Major depressive episode 05/27/2014 Overview (11/16/2016): Single major depressive episode Hypothyroidism 05/27/2014 Overview (11/16/2016): Hypothyroidism Assessment & Plan (03/07/2017 10:27 AM CDT): Recheck TSH. Continue current medication Anxiety state 05/27/2014 Overview (11/16/2016): Anxiety state Obsessive-compulsive disorder 05/27/2014 Overview (11/16/2016): Obsessive-compulsive disorder Assessment & Plan (03/07/2017 10:30 AM CDT): Psychological condition is unchanged. Stable on current medications. Uses ativan a few times/week. Continue current treatment regimen. Psychological condition will be reassessed 6 months. Resolved Problems Problem Noted Date Diagnosed Date Resolved Date Disorder of thyroid 06/17/2016 03/07/20 Overview (11/16/2016): Thyroid disease Encounters Date Type Department Care Team Description 07/29/2024 [facility]phone [facility] [address] [place] [address] Outpatient [facility] 4th Floor [address] [place] [address] Suzan Orantes 07/16/2024 Telephone [facility] [address] [place] [address] 4th Floor [address] [place] [address] Suzan Orantes from Last 3 Months Immunizations Immunization Administration Dates Next Due DTaP 12/26/1998, 6,02/17/1995,12/18,1994 HPV, Bivalent 03/27/2007 HPV, Unspecified 07/21/2007,01/26/2000 Hep B Vaccine 02/17/1995,1994 Hep B, Adolescent or Pediatric 1994 HiB 11/21/1995,02/17/1995,1994 Hib (PRP-T) 1994 IPV 12/26/1998, 5,1994,10/18 Influenza, Quadrivalent, Spl it, Intramuscular 07/11/2016 Influenza, Trivalent, IM (MDV) 05/27/2014 Influenza, Trivalent, Recomb inant, Egg Free, Preservative Free, Antibiotic Free, IM (FLUBLOK) 04/20/2015 Influenza, Unspecified 06/13/2017 MMR 12/26/1998,11/21/1995 Meningococcal Polysaccharide (Menomune) 07/15/2006 Pneumococcal Polysaccharide PPV23 07/11/2016 Tdap 07/11/2016,02/18/2006 Varicella 03/30/2010,03/28/1997 Surgical History Surgery Date Site/Laterality Comments OTHER SURGICAL HISTORY R hand bone spur removed OTHER SURGICAL HISTORY mass removal right palm HAND SURGERY bone spur BREAST BIOPSY Left Benign Medical History Medical History Date Comments Asthma Asthma; Comments : DNT 05/30/2014 - Diabetes mellitus (HCC) Fibromyalgia Thyroid disease Acid reflux Depression Anxiety Family History Medical History Relation Name Comments Diabetes Maternal Grandmother Diabete s mellitus; Hyperlipidemia Maternal Grandmother Hyper lipidemia; Other Maternal Grandmother Hepatit is; Thyroid disease Maternal Grandmother Thyr oid disease; Cervical cancer Mother Cancer, cerv ical; Diabetes Mother Diabetes mellit us; Diabetes type I Mother Diabetes angelita litus type 1; Endometrial cancer Mother Hyperlipidemia Mother Hyperlipidemi a; Kidney disease Mother Renal disease ; Thyroid disease Mother Thyroid dise ase; Uterine cancer Mother Cancer, uteri ne; Cancer Other 1 Family history of cancer; Diabetes Other 2 Family history of diabetes; Heart disease Other 3 Family history of heart problems; Hypertension Other 4 Family history of Hypertension; Mental illness Other 5 Family histor y of Mental illness; Alcohol abuse Other 6 Family history of Alcoholism; Arthritis Other 7 Family history of arthritis; Stroke Other 8 Family history of Stroke; Blood Clot Other 9 Family history of blood clots; Other Other 10 Family history of aunt - RSD; Other Other 11 Family history of fibromyalgia - cousins; Relation Name Status Comments Maternal Grandmother Mother Other 1 Other 2 Other 3 Other 4 Other 5 Other 6 Other 7 Other 8 Other 9 Other 10 Other 11 Social History Tobacco Use Types Packs/Day Years Used Date Smoking Tobacco: Never Smokeless Tobacco: Never Alcohol Use Standard Drinks/Week Comments No 0 (1 standard drink = 0.6 oz pur e alcohol) Personal Safety Answer Date Recorded Getting School Help Needed Not on file 10/23 Comments No Sex and Gender Information Value Date Recorded Sex Assigned at Not on file Legal Sex Female 7:35 PM POST PRODUCTION ASSISTANT Gender Identity Female 05/12/2024 12:59 PM CDT Sexual Orientation Straight 05/12/2024 12 :59 PM CDT Obstetrics History Para Term AB IAB SAB Ectopic Multiple Livin g Live Births 0 0 0 Last Filed Vital Signs Vital Sign Reading Time Taken Comments Blood Pressure 116/78 04/13/2024 2:04 PM CDT Pulse 89 04/13/2024 2:04 PM CDT Temperature 36.2 C (97.2 F) 04/13/2024 2:04 PM CDT Respiratory Rate 16 04/13/2024 2:04 PM CDT Oxygen Saturation 96% 04/13/2024 2:04 PM CDT Inhaled Oxygen Concentration - - Weight 86.7 kg (191 lb 3.2 oz) 04/13/2024 1:57 P M CDT Height 162.6 cm (5' 4 ) 01/08/2019 9:20 AM CDT Body Mass Index 32.82 01/08/2019 9:20 AM CDT Plan of Treatment Health Maintenance Due Date Last Done Comments Albumin Creatinine Ratio, Urine 1994 Cervical Cancer Screening 1994 Dilated Eye Exam 1994 HPV Vaccines (3 - 2-dose series) 10/13/2007 07/21/2007, 03/27/2007, 01/26/2000 Regular Well Visit/Exam 18-64 2012 Pneumococcal vaccine <65 (2 of 2 - PCV) 07/11/2017 07/11/2016 Hemoglobin A1C 01/07/2018 07/10/2017, 06/13, 04/03/2017 Depression Screening 03/06/2018 03/06/2017 Lipid Panel 04/03/2018 04/03/2017, 08/2015, 03/15/2016, Additional history exists Foot Exam 05/01/2018 05/01/2017 eGFR 08/17/2019 08/17/2018, 04/12, 04/03/2017 Covid-19 Vaccine (2023-2 5 season) 2024 11/14/2020, 10/17/2020 Influenza Vaccine (#1) 2024 , 05/17/2022, 07/21/2020, Additional history exists DTaP/Tdap/Td Vaccine (9 - Td or Tdap) 12/09/2028 12/09/2018, 07/11/2016, 02/18/2006, Additional history exists Varicella Vaccines Completed 03/30/2010, 03/28/1997 Hepatitis C Screening Completed 10/20/2015 Hepatitis B Screening Completed 07/21/2020 , 05/28/2019, 04/27/2019, Additional history exists Procedures Procedure Name Priority Date/Time Associated Diagnosis Comments EGFR STAT 08/17/2018 2:14 PM POST PRODUCTION ASSISTANT POCT HEMOGLOBIN A1C Routine 07/10/2017 2 :45 PM POST PRODUCTION ASSISTANT Type 2 diabetes mellitus with hyperglycemia, without long-term current use of insulin ([facility]) LIPID PANEL Routine 04/03/2017 5:07 PM CDT Type 2 diabetes mellitus without complication, without long-term current use of insulin (CMS/HCC) SERUM HEPATITIS C AB Routine 10/20/2015 2:00 PM POST PRODUCTION ASSISTANT from Last 3 Months or Most Recently Relevant to Health Maintenance Results * eGFR (08/17/2018 2:14 PM POST PRODUCTION ASSISTANT) eGFR 129 mL/min/1.7 3 m2 [facility]) Comment: Interpretive Data Reference Interval Normal >/= 90 mL/min/1.73m2 Mildly decreased* 60 - 89 mL/min/1.73m2 Mildly to moderately decreased 45 - 59 mL/min/1.73m2 Moderately to severely decreased 30 - 44 mL/min/1.73m2 Severely decreased 15 - 29 mL/min/1.73m2 Kidney Failure < 15 mL/min/1.73m2 *Relative to young adult level If -[place]ub[place] multiply value by 1.16. Estimated glomerular filtration rate is determined by the CKD-EPI equation recommended by the National Kidney Foundation (KDIGO 2012 Clinical Practice Guideline for the Evaluation and Management of Chronic Kidney Disease. Kidney Intnl Suppl Aug 2012;3:1). The CKD-EPI equation should not be used for patients with unstable renal function and has not been validated in children and those over 70. Current interpretive data was last reviewed 2016. Blood specimen (specimen) 08/17/2018 2:14 PM POST PRODUCTION ASSISTANT 08/17/2018 2:22 PM POST PRODUCTION ASSISTANT Narrative [facility]) - 08/17/2018 2:47 PM POST PRODUCTION ASSISTANT us Lauren Jones MD LAB BLOOD ORDERABLES Final Result [facility]) 1 [facility] Department [place] [address] * POCT hemoglobin A1c (07/10/2017 2:45 PM POST PRODUCTION ASSISTANT) Hemoglobin A1C, POC 9.8 Blood specimen (specimen) 07/10/2017 2:45 PM POST PRODUCTION ASSISTANT Jarod Daly MD POINT OF CARE TEST ORDERABLES Final Result * (ABNORMAL) Lipid panel (04/03/2017 5:07 PM CDT) Cholesterol 278(H) 100 - 200 mg/dL [facility] Comment: Interpretive Data Desirable: <200 mg/dL Borderline high: 200-239 mg/dL High: >240 mg/dL Current interpretive data was last revised on 2016. Triglycerides 715(H) 10 - 150 mg/dL [facility] Comment: Interpretive Data Desirable: < 150 mg/dL Borderline High: 150 - 199 mg/dL High: 200 - 499 mg/dL Very High: > or = 499 mg/dL Current interpretive data was last revised on 2016. HDL 43 40 - 59 mg/dL [facility] Comment: Interpretive Data Less than 40 mg/dL - Low; A major risk factor for heart disease. Greater than or equal to 60 mg/dL - High; Considered protective of heart disease. Current interpretive data was last revised on 2016. LDL, calculated 92 60 - 129 mg/dL [facility] Comment: Interpretive Data Optimal: < 100 mg/dL Near Optimal: 100 - 129 mg/dL Borderline High: 130 - 159 mg/dL High: > 160 mg/dL Current interpretive data was last revised on 2016. Non-HDL Cholesterol 235 mg/dL [facility] Comment: Interpretive Data When triglycerides are >200 mg/dL, non-HDL C is a secondary target of therapy, with a goal 30 mg/dL higher than the identified LDL-C goal. Current interpretive data was last revised 2016. Blood specimen (specimen) 04/03/2017 5:07 PM CDT 04/03/2017 7:27 PM CDT Lacey Samaniego NP LAB BLOOD ORDERABLES Final Resul t [facility] [address] [place] [address] * Serum Hepatitis C ab (10/20/2015 2:00 PM POST PRODUCTION ASSISTANT) HCV ab Negative Negative HISTORICAL RESULTS Serum 10/20/2015 2:0 0 PM POST PRODUCTION ASSISTANT us Korin Beltran MD LAB BLOOD ORDERABLES Final Resul t HISTORICAL RESULTS from Last 3 Months or Most Recently Relevant to Health Maintenance Insurance [facility] Care Teams Solution Designer Relationship Specialty Start Date End Date Celena Chavez MD [address] [place] [address] [address]CO[address] [address] PCP - General 05/01/18 Lacey Samaniego NP Nurse Practitioner Family Medicine 06/23/17
--- OUTSIDE RECORDS SUMMARY | 2024-10-05 15:49 | XMS_ITS | Encounter Summary ---
Author Organization [facility] Address [address] [facility] [place] [address] Phone Care Team Providers Care Garbage Collector Name Role Phone Fco Llanes MD Primary Care Provider [phone] Uche Haley MD Unavailable [phone] Della Whaley DO Primary Care Provider [phone] Reason for Visit * Reason Comments Medication Refill Encounter Details Date Type Department Care Team (Late st Contact Info) Description 05/07/2023 Telephone [facility] [address] [place] [address] Fco Llanes MD [address] [place] [address] Medication Refill Social History Tobacco Use Types [...] Sex Assigned at Female 07/10/2023 4:42 AM PIPE BOWLS PAINT TRIMMER Legal Sex Female 3:32 PM PIPE BOWLS PAINT TRIMMER Gender Identity Female 07/10/2023 4:42 AM PIPE BOWLS PAINT TRIMMER Sexual Orientation Straight 07/10/2023 4: 42 AM PIPE BOWLS PAINT TRIMMER documented as of this encounter Miscellaneous Notes * Telephone Encounter - Beatrice Cid RN - 05/12/2023 7:19 AM CDT Zolpidem PDMP 04/08/23 Ozempic - pt would like her dose increased - pended 2 mg weekly Medication failed the protocol, provider to review and approve the medication order if appropriate. Requested Prescriptions Pending Prescriptions Disp Refills cyclobenzaprine (FLEXERIL) 10 MG Tablet [Pharmacy Med Name: CYCLOBENZAPRINE 10MG TABLETS] 42 Tablet0 Sig: TAKE 1 TABLET BY MOUTH THREE TIMES DAILY NEEDED FOR MUSCLE SPASMS Not Delegated - Muscle Relaxants Protocol Failed - 05/07/2023 10:09 PM Failed - This refill cannot be delegated Passed - Visit with relevant provider in past 12 months or upcoming 90 days Recent Visits Date Type Provider Dept 01/24/23 Office Visit Fco Llanes MD [facility] 09/20/22 Office Visit Fco Llanes MD [facility] 05/17/22 Office Visit Fco Llanes MD [facility] Showing recent visits within past 365 days and meeting all other requirements Future Appointments Date Type Provider Dept 05/23/23 Appointment Fco Llanes MD [facility] Showing future appointments within next 90 days and meeting all other requirements zolpidem (AMBIEN) 10 MG Tablet [Pharmacy Med Name: ZOLPIDEM 10MG TABLETS] 30 Tablet 0 Sig: TAKE 1 TABLET BY MOUTH EVERY NIGHT NEEDED FOR SLEEP There is no refill protocol information for this order fish oil-omega-3 fatty acids 1000 MG Capsule [Pharmacy Med Name: FISH OIL 1000MG CAPSULES] 60 Capsule 2 Sig: TAKE 2 CAPSULES BY MOUTH DAILY There is no refill protocol information for this order Insulin Pen Needle (TRUEplus 5-Bevel Pen [place]) 31G X 8 MM Misc [Pharmacy Med Name: TRUE PLUS PENNEEDLES [id number]] 100 Pen Needle 1 Sig: USE TO TAKE INSULIN Diabetic Supplies Protocol Passed - 05/07/2023 10:09 PM Passed - Visit with relevant provider in past 6 months Recent Visits Date Type Provider Dept 01/24/23 Office Visit Fco Llanes MD [facility] Showing recent visits within past 182 days and meeting all other requirements Future Appointments Date Type Provider Dept 05/23/23 Appointment Fco Llanes MD [facility] Showing future appointments within next 90 days and meeting all other requirements Semaglutide, 2 MG/DOSE, (Ozempic, 2 MG/DOSE,) 8 MG/3ML Solution Pen-injector 3 mL 0 Si mg by Subcutaneous route every 7 days. There is no refill protocol information for this order Refused Prescriptions Disp Refills Ozempic, 1 MG/DOSE, 4 MG/3ML Solution Pen-injector [Pharmacy Med Name: OZEMPIC 1MG PER DOSE (1X4MG PEN)] 3 mL 0 Sig: INJECT 1MG UNDER THE SKIN ONCE A WEEK. CALL IN ONCE MONTH FOR REFILL AND DOSE INCREASE. GLP-1 Agonists Protocol Passed - 05/07/2023 10:09 PM Passed - Lipid panel result on file [...] Dept 01/24/23 Office Visit Fco Llanes MD [facility] Showing recent visits within past 182 days and meeting all other requirements Future Appointments Date Type Provider Dept 05/23/23 Appointment Fco Llanes MD [facility] Showing future appointments within next 90 days and meeting all other requirements Passed - HgA1C result on record in past 6 months HGB-A1C Date Value Ref Range Status 01/24/2023 6.9 (A) 4 - 6 % Final Passed - GFR on record in past 6 months GFR, EST. NONAFRICAN Date Value Ref Range Status 01/24/2023 >60 >=60 Final * Telephone Encounter - Verona Lorenz RN - 05/09/2023 11:00 AM CDT S: Return call B: See previous note in encounter A: She states yes she does need it increased to 2mg R: Please advise * Telephone Encounter - Beatrice Cid RN - 05/09/2023 10:55 AM CDT LVM for pt to return call to office. See provider note below. * Telephone Encounter - Fco Llanes MD - 05/09/2023 10:51 AM CDT Can you see if she needs the ozempic dose up to 2 mg weekly? * Telephone Encounter - Beatrice Cid RN - 05/08/2023 1:39 PM CDT PDMP Zolpidem 04/08/23 Medication failed the protocol, provider to review and approve the medication order if appropriate. Requested Prescriptions Pending Prescriptions Disp Refills cyclobenzaprine (FLEXERIL) 10 MG Tablet [Pharmacy Med Name: CYCLOBENZAPRINE 10MG TABLETS] 42 Tablet0 Sig: TAKE 1 TABLET BY MOUTH THREE TIMES DAILY NEEDED FOR MUSCLE SPASMS Not Delegated - Muscle Relaxants Protocol Failed - 05/07/2023 10:09 PM Failed - This refill cannot be delegated Passed - Visit with relevant provider in past 12 months or upcoming 90 days Recent Visits Date Type Provider Dept 01/24/23 Office Visit Fco Llanes MD [facility] 09/20/22 Office Visit Fco Llanes MD [facility] 05/17/22 Office Visit Fco Llanes MD [facility] Showing recent visits within past 365 days and meeting all other requirements Future Appointments Date Type Provider Dept 05/23/23 Appointment Fco Llanes MD [facility] Showing future appointments within next 90 days and meeting all other requirements Ozempic, 1 MG/DOSE, 4 MG/3ML Solution Pen-injector [Pharmacy Med Name: OZEMPIC 1MG PER DOSE (1X4MG PEN)] 3 mL 0 Sig: INJECT 1MG UNDER THE SKIN ONCE A WEEK. CALL IN ONCE MONTH FOR REFILL AND DOSE INCREASE. GLP-1 Agonists Protocol Passed - 05/07/2023 10:09 PM Passed - Lipid panel result on file [...] Dept 01/24/23 Office Visit Fco Llanes MD [facility] Showing recent visits within past 182 days and meeting all other requirements Future Appointments Date Type Provider Dept 05/23/23 Appointment Fco Llanes MD [facility] Showing future appointments within next 90 days and meeting all other requirements Passed - HgA1C result on record in past 6 months HGB-A1C Date Value Ref Range Status 01/24/2023 6.9 (A) 4 - 6 % Final Passed - GFR on record in past 6 months GFR, EST. NONAFRICAN Date Value Ref Range Status 01/24/2023 >60 >=60 Final zolpidem (AMBIEN) 10 MG Tablet [Pharmacy Med Name: ZOLPIDEM 10MG TABLETS] 30 Tablet 0 Sig: TAKE 1 TABLET BY MOUTH EVERY NIGHT NEEDED FOR SLEEP There is no refill protocol information for this order fish oil-omega-3 fatty acids 1000 MG Capsule [Pharmacy Med Name: FISH OIL 1000MG CAPSULES] 60 Capsule 2 Sig: TAKE 2 CAPSULES BY MOUTH DAILY There is no refill protocol information for this order Insulin Pen Needle (TRUEplus 5-Bevel Pen [place]) 31G X 8 MM Misc [Pharmacy Med Name: TRUE PLUS PENNEEDLES [id number]] 100 Pen Needle 1 Sig: USE TO TAKE INSULIN Diabetic Supplies Protocol Passed - 05/07/2023 10:09 PM Passed - Visit with relevant provider in past 6 months Recent Visits Date Type Provider Dept 01/24/23 Office Visit Fco Llanes MD [facility] Showing recent visits within past 182 days and meeting all other requirements Future Appointments Date Type Provider Dept 05/23/23 Appointment Fco Llanes MD [facility] Showing future appointments within next 90 days and meeting all other requirements documented in this encounter Plan of Treatment Upcoming Encounters Date Type Department Care Team (Late st Contact Info) Description 10/11/2024 1:15 PM PIPE BOWLS PAINT TRIMMER Office Visit [facility] - Family Medicine [facility] [address] [place] [address] Della Whaley, DO [address] [address] documented as of this encounter Visit Diagnoses Diagnosis Chronic tension-type headache, not intractable Chronic tension type headache Insomnia, unspecified type documented in this encounter Additional Health Concerns Assessment Noted Time PHQ-9 Depression Total Score: 5 11/17/19 22 9:00 AM CDT documented as of this encounter Care Teams Garbage Collector Relationship Specialty Start Date End Date Fco Llanes MD PCP - General Family Medicine 07/14/20 01/28/24 Della Whaley DO [address] [facility] [address] [place], [place] [id number] PCP - General Family Medicine 01/30/24 Uche Haley MD [address] [place] [address] Consulting Physician General Surgery 02/21/23 documented as of this encounter
--- OUTSIDE RECORDS SUMMARY | 2024-10-05 15:49 | XMS_ITS | Encounter Summary ---
Author Organization [facility] Address [address] [facility] [place] [address] Phone Care Team Providers Care Roving Department End Finder Name Role Phone Fco Llanes MD Primary Care Provider [phone] Uche Haley MD Unavailable [phone] Della Whaley DO Primary Care Provider [phone] Reason for Visit * Reason Comments Medication Refill Encounter Details Date Type Department Care Team (Late st Contact Info) Description 03/03/[address] [facility] - Family Medicine [facility] [address] [place] [phone] Fco Llanes MD [address]1 [place] [address] Medication Refill Social History Tobacco Use Types [...] Sex Assigned at Female 07/10/2023 4:42 AM AMPOULE SEALER Legal Sex Female 3:32 PM AMPOULE SEALER Gender Identity Female 07/10/2023 4:42 AM AMPOULE SEALER Sexual Orientation Straight 07/10/2023 4: 42 AM AMPOULE SEALER COVID-19 Exposure Response Date Recorded In the last 10 days, have yo u been in contact with someone who was confirmed or suspected to have Coronavirus/COVID-19? No / Unsure 02/24/2023 3:55 AM CDT documented as of this encounter Miscellaneous Notes * Telephone Encounter - Beatrice Cid RN - 03/03/2023 12:13 PM CDT Medication failed the protocol, provider to review and approve the medication order if appropriate. Requested Prescriptions Pending Prescriptions Disp Refills cyclobenzaprine (FLEXERIL) 10 MG Tablet [Pharmacy Med Name: CYCLOBENZAPRINE 10MG TABLETS] 42 Tablet0 Sig: TAKE 1 TABLET BY MOUTH THREE TIMES DAILY NEEDED FOR MUSCLE SPASMS Not Delegated - Muscle Relaxants Protocol Failed - 03/03/2023 6:22 AM Failed - This refill cannot be delegated Passed - Visit with relevant provider in past 12 months or upcoming 90 days Recent Visits Date Type Provider Dept 01/24/23 Office Visit Fco Llanes MD [facility] 09/20/22 Office Visit Fco Llanes MD [facility] 05/17/22 Office Visit Fco Llanes MD [facility] Showing recent visits within past 365 days and meeting all other requirements Future Appointments Date Type Provider Dept 05/26/23 Appointment Fco Llanes MD [facility] Showing future appointments within next 90 days and meeting all other requirements Ozempic, 0.25 or 0.5 MG/DOSE, 2 MG/3ML Solution Pen-injector [Pharmacy Med Name: OZEMPIC 0.25 OR 0.5MG/WAK2X3OF 3ML] 3 mL 0 Sig: INJECT 0.5 MG UNDER THE SKIN ONCE A WEEK GLP-1 Agonists Protocol Passed - 03/03/2023 6:22 AM Passed - Lipid panel result on [...] requirements Future Appointments Date Type Provider Dept 05/26/23 Appointment Fco Llanes MD [facility] Showing future appointments within next 90 days and meeting all other requirements Passed - HgA1C result on record in past 6 months HGB-A1C Date Value Ref Range Status 01/24/2023 6.9 (A) 4 - 6 % Final Passed - GFR on record in past 6 months GFR, EST. NONAFRICAN Date Value Ref Range Status 01/24/2023 >60 >=60 Final fenofibrate 160 MG Tablet [Pharmacy Med Name: FENOFIBRATE 160MG TABLETS] 90 Tablet 0 Sig: TAKE 1 TABLET BY MOUTH DAILY Fibrates Protocol Passed - 03/03/2023 6:22 AM Passed - Visit with relevant provider in past 12 months or upcoming 90 days Recent Visits Date Type Provider Dept 01/24/23 Office Visit Fco Llanes MD [facility] 09/20/22 Office Visit Fco Llanes MD [facility] 05/17/22 Office Visit Fco Llanes MD [facility] Showing recent visits within past 365 days and meeting all other requirements Future Appointments Date Type Provider Dept 05/26/23 Appointment Fco Llanes MD [facility] Showing future appointments within next 90 days and meeting all other requirements Passed - Lipid panel in past 12 months [...] Status 01/24/2023 152.6 (H) <130 mg/dL Final Lantus SoloStar 100 UNIT/ML Solution Pen-injector [Pharmacy Med Name: LANTUS SOLOSTAR PEN INJ 3ML] 6 mL 3 Sig: ADMINISTER 15 UNITS UNDER THE SKIN EVERY NIGHT Not Delegated - Insulin Protocol Failed - 03/03/2023 6:22 AM Failed - This refill cannot be delegated Passed - Visit with relevant provider in past 12 months or upcoming 90 days Recent Visits Date Type Provider Dept 01/24/23 Office Visit Fco Llanes MD [facility] 09/20/22 Office Visit Fco Llanes MD [facility] 05/17/22 Office Visit Fco Llanes MD [facility] Showing recent visits within past 365 days and meeting all other requirements Future Appointments Date Type Provider Dept 05/26/23 Appointment Fco Llanes MD [facility] Showing future appointments within next 90 days and meeting all other requirements documented in this encounter Plan of Treatment Upcoming Encounters Date Type Department Care Team (Late st Contact Info) Description 10/11/2024 1:15 PM AMPOULE SEALER Office Visit [facility] - Family Medicine - [place] [address] [place] [phone] Della Whaley, DO [address] [facility] [address] [place] [address] documented as of this encounter Visit Diagnoses Diagnosis Chronic tension-type headache, not intractable Chronic tension type headache Type 2 diabetes mellitus without complication, without long-term current use of insulin (HCC) documented in this encounter Additional Health Concerns Assessment Noted Time PHQ-9 Depression Total Score: 5 11/17/19 22 9:00 AM CDT documented as of this encounter Care Teams Roving Department End Finder Relationship Specialty Start Date End Date Fco Llanes MD PCP - General Family Medicine 07/14/20 01/28/24 Della Whaley DO [address] [facility] [address] [place] [address] PCP - General Family Medicine 01/30/24 Uche Haley MD [address] [place] [address] Consulting Physician General Surgery 02/21/23 documented as of this encounter
--- OUTSIDE RECORDS SUMMARY | 2024-10-05 15:49 | XMS_ITS | Encounter Summary ---
Author Organization [facility] Address [address] [facility] [place] [address] Phone Care Team Providers Care Cotton Roll Packer Name Role Phone Fco Llanes MD Primary Care Provider Uche Haley MD Unavailable [phone] Della Whaley DO Primary Care Provider [phone] Reason for Visit * Reason Comments Medication Refill Encounter Details Date Type Department Care Team (Late st Contact Info) Description 09/30/2022 Refill [facility] Medical Group - Family Medicine [facility] [address]2 [place] [phone] Fco Llanes MD [address] [place] [address] Medication Refill Social History Tobacco Use Types [...] Sex Assigned at Female 07/10/2023 4:42 AM COILER Legal Sex Female 3:32 PM COILER Gender Identity Female 07/10/2023 4:42 AM COILER Sexual Orientation Straight 07/10/2023 4: 42 AM COILER COVID-19 Exposure Response Date Recorded In the last 10 days, have yo u been in contact with someone who was confirmed or suspected to have Coronavirus/COVID-19? No / Unsure 09/20/2022 1:43 PM COILER documented as of this encounter Miscellaneous Notes * Telephone Encounter - Judy Vidal RN - 09/30/2022 10:24 AM COILER Medication discontinued 09/20/22 ER documented in this encounter Plan of Treatment Upcoming Encounters Date Type Department Care Team (Late st Contact Info) Description 10/11/2024 1:15 PM COILER Office [facility] - Family Medicine [facility] [address] [place] [address] Della Whaley DO [address] [facility] [address] [place] [address] documented as of this encounter Visit Diagnoses Not on filedocumented in this encounter Additional Health Concerns Assessment Noted Time PHQ-9 Depression Total Score: 5 11/17/19 22 9:00 AM CDT documented as of this encounter Care Teams Cotton Roll Packer Relationship Specialty Start Date End Date Fco Llanes MD PCP - General Family Medicine 07/14/20 01/28/24 Della Whaley DO [address] [facility] [address] [place] [address] PCP - General Family Medicine 01/30/24 Uche Haley MD #[address] [address] Consulting Physician General Surgery 02/21/23 documented as of this encounter
--- OUTSIDE RECORDS SUMMARY | 2024-10-05 15:49 | XMS_ITS | Referral Summary ---
Author Organization [facility] Address [address] [place] [address] Care Team Providers Care Regional Tanker Truck Driver Name Role Phone Lacey Samaniego NP Unavailable Celena Chavez MD Primary Care Provider Encounters Date Type Department Care Team Description 07/29/2024 [facility]phone [facility] [address] [place] [address] Outpatient [facility] 4th Floor [address] [place] [address] Suzan Orantes 07/16/2024 Telephone [facility] [address] [place] [address] Outpatient [facility] 4th Floor [address] [place] [address] Suzan Orantes from Last 3 Months Allergies Active Allergy Reactions Criticality Noted Date [...] daily 1 each 7 Active FLUZONE QUAD [id number], PF, 60 mcg (15 mcg x 4)/0.5 [...] total) by mouth daily 4 Active omega 5-ygh-imc-fish oil 300 mg (120 mg- 180mg)-1,000 mg [...] Resolved Date Disorder of thyroid 06/17/2016 03/07/20 17 Overview (11/16/2016): Thyroid disease Immunizations Immunization Administration Dates Next Due DTaP [...] Polysaccharide PPV23 07/11/2016 Tdap 07/11/2016,02/18/2006 Varicella 03/30/2010,03/28/1997 Social History Tobacco Use Types Packs/Day Years [...] on file Legal Sex Female 7:35 PM MC KAY MACHINE OPERATOR Gender Identity Female 05/12/2024 12:59 PM CDT Sexual Orientation Straight 05/12/2024 12 :59 PM CDT Last Filed Vital Signs Vital Sign Reading [...] 01/08/2019 9:20 AM CDT Plan of Treatment Not on file Procedures Procedure Name Priority Date/Time Associated Diagnosis Comments EGFR STAT 08/17/2018 2:14 PM MC KAY MACHINE OPERATOR POCT HEMOGLOBIN A1C Routine 07/10/2017 2 :45 PM MC KAY MACHINE OPERATOR Type 2 diabetes mellitus with hyperglycemia, without long-term current use of insulin (CMS/HCC) LIPID PANEL Routine 04/03/2017 5:07 PM CDT Type 2 diabetes mellitus without complication, without long-term current use of insulin (CMS/HCC) SERUM HEPATITIS C AB Routine 10/20/2015 2:00 PM MC KAY MACHINE OPERATOR from Last 3 Months or Most Recently Relevant to Health Maintenance Results * eGFR (08/17/2018 2:14 PM MC KAY MACHINE OPERATOR) eGFR 129 mL/min/1.7 3 m2 [facility]ERS ([place]) Comment: Interpretive Data Reference Interval Normal >/= 90 mL/min/1.73m2 Mildly decreased* 60 - 89 mL/min/1.73m2 Mildly to moderately decreased 45 - 59 mL/min/1.73m2 Moderately to severely decreased 30 - 44 mL/min/1.73m2 Severely decreased 15 - 29 mL/min/1.73m2 Kidney Failure < 15 mL/min/1.73m2 *Relative to young adult level If -[place] multiply value by 1.16. Estimated glomerular filtration [...] 2016. Blood specimen (specimen) 08/17/2018 2:14 PM MC KAY MACHINE OPERATOR 08/17/2018 2:22 PM MC KAY MACHINE OPERATOR Narrative [facility] ([place]) - 08/17/2018 2:47 PM MC KAY MACHINE OPERATOR Lauren Jones MD LAB BLOOD ORDERABLES Final Result KATHLEENJAMES WATERS ([place]) 1 [facility] Department [place] [address] * POCT hemoglobin A1c (07/10/2017 2:45 PM MC KAY MACHINE OPERATOR) Pathologist [facility] Hemoglobin A1C, POC 9.8 Blood specimen (specimen) 07/10/2017 2:45 PM MC KAY MACHINE OPERATOR Jarod Daly MD POINT OF CARE TEST ORDERABLES Final Result * (ABNORMAL) Lipid panel (04/03/2017 5:07 PM CDT) Cholesterol 278(H) 100 - 200 mg/dL BRIGID Comment: Interpretive Data Desirable: <200 mg/dL Borderline high: 200-239 mg/dL High: >240 mg/dL Current interpretive data was last revised on 2016. Triglycerides 715(H) 10 - 150 mg/dL BRIGID Comment: Interpretive Data Desirable: < 150 mg/dL [...] on 2016. Non-HDL Cholesterol 235 mg/dL [facility] [place] Comment: Interpretive Data When triglycerides are >200 mg/dL, non-HDL C is a secondary target of therapy, with a goal 30 mg/dL higher than the identified LDL-C goal. Current interpretive data was last revised 2016. Blood specimen (specimen) 04/03/2017 5:07 PM CDT 04/03/2017 7:27 PM CDT Lacey Samaniego NP LAB BLOOD ORDERABLES Final Resul t [facility] [address] Department [place] [address] * Serum Hepatitis C ab (10/20/2015 2:00 PM MC KAY MACHINE OPERATOR) HCV ab Negative Negative HISTORICAL RESULTS Serum 10/20/2015 2:00 PM MC KAY MACHINE OPERATOR Korin Beltran MD LAB BLOOD ORDERABLES Final Resul t HISTORICAL RESULTS from Last 3 Months or Most Recently Relevant to Health Maintenance Insurance [facility] Care Teams Regional Tanker Truck Driver Relationship Specialty Start Date End Date Celena Chavez MD [address] [place] [address] [address] [address] PCP - General 05/01/18 Lacey Samaniego NP Nurse Practitioner Family Medicine 06/23/17
--- OUTSIDE RECORDS SUMMARY | 2024-10-05 15:49 | XMS_ITS | Encounter Summary ---
Author Organization [facility] Address [address] [facility] [place] [address] Phone Care Team Providers Care Book Sorter Name Role Phone Uche Haley MD Unavailable [phone] Della Whaley DO Primary Care Provider [phone] Reason for Visit * Reason Comments Medication Refill Encounter Details Date Type Department Care Team (Late st Contact Info) Description 08/13/2024 Refill [facility] [address]2 [place] [address] Lubna Duran PAC [address] [place] [address] Medication Refill Social History Tobacco Use Types Packs/Day Years Used Date Smoking Tobacco: Never Smokeless Tobacco: Never Alcohol Use Standard Drinks/Week Comments Yes 0 (1 standard drink = 0.6 oz pur e alcohol) Only very occassionally PHQ-2 Answer Date Recorded Total Score - Questions 1-9 5 03/2022 Education Answer Date Recorded What is the highest level of school you have completed or the highest degree you have received? Some college, no degree 09/16/2022 Sexually Active Control Partners Comments Not Currently Comments No Sex and Gender Information Value Date Recorded Sex Assigned at Female 07/10/2023 4:42 AM POWER MARKETER Legal Sex Female 3:32 PM POWER MARKETER Gender Identity Female 07/10/2023 4:42 AM POWER MARKETER Sexual Orientation Straight 07/10/2023 4: 42 AM POWER MARKETER documented as of this encounter Miscellaneous Notes * Telephone Encounter - Karen Gabriel RN - 08/13/2024 12:30 PM POWER MARKETER R MARKETER documented in this encounter Plan of Treatment Upcoming Encounters Date Type Department Care Team (Late st Contact Info) Description 10/11/2024 1:15 PM POWER MARKETER Office [facility] - [place] [address] [place] [address] Della Whaley DO [address] [facility] [facility] [address] [place] [address] documented as of this encounter Visit Diagnoses Not on filedocumented in this encounter Additional Health Concerns Assessment Noted Time PHQ-9 Depression Total Score: 5 11/17/19 22 9:00 AM CDT documented as of this encounter Care Teams Book Sorter Relationship Specialty Start Date End Date Della Whaley DO [address] [facility] [facility] [address] [place] [address] PCP - General Family Medicine 01/30/24 Uche Haley MD [address] [address] Consulting Physician General Surgery 02/21/23 documented as of this encounter
--- OUTSIDE RECORDS SUMMARY | 2024-10-05 15:49 | XMS_ITS | Encounter Summary ---
Author Organization [facility] Address [address] [facility] [place] [address] Phone Care Team Providers Care Chief Radiology Name Role Phone Fco Llanes MD Primary Care Provider [phone] Uche Haley MD Unavailable [phone] Della Whaley DO Primary Care Provider [phone] Reason for Visit * Reason Comments Medication Refill Encounter Details Date Type Department Care Team (Late st Contact Info) Description 10/11/2022 Refill [facility] - Family Medicine [facility] [address]2 [place] [address] Fco Llanes MD [address] [place] [address] Medication Refill Social History Tobacco Use Types [...] Straight 07/10/2023 4: 42 AM TYPEWRITER ASSEMBLER COVID-19 Exposure Response Date Recorded In the last 10 days, have yo u been in contact with someone who was confirmed or suspected to have Coronavirus/COVID-19? No / Unsure 10/06/2022 1:41 PM TYPEWRITER ASSEMBLER documented as of this encounter Miscellaneous Notes * Telephone Encounter - Beatrice Cid RN - 10/11/2022 10:45 AM CST Medication failed the protocol, provider to review and approve the medication order if appropriate. Requested Prescriptions Pending Prescriptions Disp Refills HumaLOG KwikPen 100 UNIT/ML Solution Pen-injector [Pharmacy Med Name: HUMALOG 100 U/ML KWIK PEN INJ3ML] 15 mL 2 Sig: INJECT UNDER THE SKIN TWICE DAILY PER SLIDING SCALE. NO MORE THAN 40 UNITS PER DAY Not Delegated - Insulin Protocol Failed - 10/11/2022 9:10 AM Failed - This refill cannot be delegated Passed - Visit with relevant provider in past 12 months or upcoming 90 days Recent Visits Date Type Provider Dept 09/20/22 Office Visit Fco Llanes MD [facility] 05/17/22 Office Visit Fco Llanes MD [facility] 11/16/21 Office Visit Fco Llanes MD [facility] [place] Showing recent visits within past 365 days and meeting all other requirements Future Appointments No visits were found meeting these conditions. Showing future appointments within next 90 days and meeting all other requirements WRITER ASSEMBLER documented in this encounter Plan of Treatment Upcoming Encounters Date Type Department Care Team (Late st Contact Info) Description 10/11/2024 1:15 PM TYPEWRITER ASSEMBLER Office Visit [facility] Medical Group - Family Medicine - [place] [address] [place] [address] Della Whaley, DO 2 [facility] [address], [address] [address] documented as of this encounter Visit Diagnoses Diagnosis Type 2 diabetes mellitus without complication, without long-term current use of insulin (HCC) documented in this encounter Additional Health Concerns Assessment Noted Time PHQ-9 Depression Total Score: 5 11/17/19 22 9:00 AM CDT documented as of this encounter Care Teams Chief Radiology Relationship Specialty Start Date End Date Fco Llanes MD PCP - General Family Medicine 07/14/20 01/28/24 Della Whaley DO [address] [facility] [address] [place] [address] PCP - General Family Medicine 01/30/24 Uche Haley MD #[address] [address] Consulting Physician General Surgery 02/21/23 documented as of this encounter
--- OUTSIDE RECORDS SUMMARY | 2024-10-05 15:49 | XMS_ITS | Encounter Summary ---
Author Organization [facility] Address [address] [facility] [place] [address] Phone Care Team Providers Care Strategic Sourcing Specialist Name Role Phone Fco Llanes MD Primary Care Provider [phone] Uche Haley MD Unavailable [phone] Della Whaley DO Primary Care Provider [phone] Reason for Visit * Reason Comments Medication Refill Encounter Details Date Type Department Care Team (Late st Contact Info) Description 09/07/2023 Refill [facility] Medical Group - Family Medicine [facility] #2 [place] [address] Fco Llanes MD [address] [place] [address] Medication Refill Social History Tobacco Use Types [...] Sex Assigned at Female 07/10/2023 4:42 AM CONSUMER SALES REPRESENTATIVE Legal Sex Female 3:32 PM CONSUMER SALES REPRESENTATIVE Gender Identity Female 07/10/2023 4:42 AM CONSUMER SALES REPRESENTATIVE Sexual Orientation Straight 07/10/2023 4: 42 AM CONSUMER SALES REPRESENTATIVE documented as of this encounter Miscellaneous Notes * Telephone Encounter - Beatrice Cid RN - 09/08/2023 10:22 AM CST Medication failed the protocol, provider to review and approve the medication order if appropriate. Requested Prescriptions Pending Prescriptions Disp Refills Ozempic, 2 MG/DOSE, 8 MG/3ML Solution Pen-injector [Pharmacy Med Name: OZEMPIC 2MG PER DOSE (8MG/3ML) PFP] 3 mL 0 Sig: INJECT 2 MG UNDER THE SKIN ONE DAY A WEEK GLP-1 Agonists Protocol Failed - 09/07/2023 10:18 AM Failed - GFR on record in past 6 months GFR, EST. NONAFRICAN Date Value Ref Range Status 01/24/2023 >60 >=60 Final Passed - Lipid panel result on file [...] 7.2 (A) 4 - 6 % Final UMER SALES REPRESENTATIVE documented in this encounter Plan of Treatment Upcoming Encounters Date Type Department Care Team (Late st Contact Info) Description 10/11/2024 1:15 PM CONSUMER SALES REPRESENTATIVE Office [facility] - Family Medicine - [place] [address] [place] [address] Della Whaley DO [address] [facility] [address] [place] [address] documented as of this encounter Visit Diagnoses Not on filedocumented in this encounter Additional Health Concerns Assessment Noted Time PHQ-9 Depression Total Score: 5 11/17/19 22 9:00 AM CDT documented as of this encounter Care Teams Strategic Sourcing Specialist Relationship Specialty Start Date End Date Fco Llanes MD PCP - General Family Medicine 07/14/20 01/28/24 Della Whaley DO [address] [facility] [facility] [address] [place] [address] PCP - General Family Medicine 01/30/24 Uche Haley MD [address] [address] Consulting Physician General Surgery 02/21/23 documented as of this encounter
--- OUTSIDE RECORDS SUMMARY | 2024-10-05 15:49 | XMS_ITS | Encounter Summary ---
Author Organization [facility] Address [address] [facility] [place] [address] Phone Care Team Providers Care Cost Manager Name Role Phone Fco Llanes MD Primary Care Provider [phone] Uche Haley MD Unavailable [phone] Della Whaley DO Primary Care Provider [phone] Reason for Visit * Reason Comments Medication Refill Encounter Details Date Type Department Care Team (Late st Contact Info) Description 09/11/2023 Refill [facility] - Family Medicine [facility] [address]2 [place] [phone] Fco Llanes MD [address]1 [place] [address] Medication Refill Social History Tobacco Use Types [...] Sex Assigned at Female 07/10/2023 4:42 AM DENIAL RESOLUTION SPECIALIST Legal Sex Female 3:32 PM DENIAL RESOLUTION SPECIALIST Gender Identity Female 07/10/2023 4:42 AM DENIAL RESOLUTION SPECIALIST Sexual Orientation Straight 07/10/2023 4: 42 AM DENIAL RESOLUTION SPECIALIST documented as of this encounter Miscellaneous Notes * Telephone Encounter - Beatrice Cid RN - 09/12/2023 11:10 AM CST Medication failed the protocol, provider to review and approve the medication order if appropriate. Requested Prescriptions Pending Prescriptions Disp Refills cyclobenzaprine (FLEXERIL) 10 MG Tablet [Pharmacy Med Name: CYCLOBENZAPRINE 10MG TABLETS] 42 Tablet0 Sig: TAKE 1 TABLET BY MOUTH THREE TIMES DAILY NEEDED FOR MUSCLE SPASMS Not Delegated - Muscle Relaxants Protocol Failed - 09/11/2023 3:58 AM Failed - This refill cannot be delegated Passed - Visit with relevant provider in past 12 months or upcoming 90 days Recent Visits Date Type Provider Dept 05/23/23 Office Visit Fco Llanes MD [facility] 01/24/23 Office Visit Fco Llanes MD [facility] 09/20/22 Office Visit Fco Llanes MD [facility] [place] Showing recent visits within past 365 days and meeting all other requirements Future Appointments Date Type Provider Dept 09/26/23 Appointment Fco Llanes MD [facility] Showing future appointments within next 90 days and meeting all other requirements AL RESOLUTION SPECIALIST documented in this encounter Plan of Treatment Upcoming Encounters Date Type Department Care Team (Late st Contact Info) Description 10/11/2024 1:15 PM DENIAL RESOLUTION SPECIALIST Office Visit [facility] Medical [facility] - Family Medicine - [place] [address] [place] [address] Della Whaley, DO 2 [facility] [place] [facility] [facility] [address] [place] [address] documented as of this encounter Visit Diagnoses Diagnosis Chronic tension-type headache, not intractable Chronic tension type headache documented in this encounter Additional Health Concerns Assessment Noted Time PHQ-9 Depression Total Score: 5 11/17/19 22 9:00 AM CDT documented as of this encounter Care Teams Cost Manager Relationship Specialty Start Date End Date Fco Llanes MD PCP - General Family Medicine 07/14/20 01/28/24 Della Whaley DO [address] [facility] [place] [facility] [address] [place] [address] PCP - General Family Medicine 01/30/24 Uche Haley MD [address] [place] [address] [address] Consulting Physician General Surgery 02/21/23 documented as of this encounter
--- OUTSIDE RECORDS SUMMARY | 2024-10-05 15:49 | XMS_ITS | Encounter Summary ---
Author Organization [facility] Address [address] [facility] [place] [place] [address] Phone Care Team Providers Care Laser Engineer Name Role Phone Fco Llanes MD Primary Care Provider [phone] Uche Haley MD Unavailable [phone] Della Whaley DO Primary Care Provider [phone] Reason for Visit * Reason Comments Medication Refill Encounter Details Date Type Department Care Team (Late st Contact Info) Description 08/28/2023 Refill [facility] - Family Medicine [facility] [address]2 [place] [phone] Fco Llanes MD [address] [place] [address] Medication Refill Social History Tobacco Use Types [...] Sex Assigned at Female 07/10/2023 4:42 AM REFERRAL MANAGEMENT LIAISON Legal Sex Female 3:32 PM REFERRAL MANAGEMENT LIAISON Gender Identity Female 07/10/2023 4:42 AM REFERRAL MANAGEMENT LIAISON Sexual Orientation Straight 07/10/2023 4: 42 AM REFERRAL MANAGEMENT LIAISON documented as of this encounter Miscellaneous Notes * Telephone Encounter - Beatrice Cid RN - 08/28/2023 9:38 AM CST Medication failed the protocol, provider to review and approve the medication order if appropriate. Requested Prescriptions Pending Prescriptions Disp Refills fish oil-omega-3 fatty acids 1000 MG Capsule [Pharmacy Med Name: FISH OIL 1000MG CAPSULES] 60 Capsule 2 Sig: TAKE 2 CAPSULES BY MOUTH DAILY Not Delegated - Off Protocol Failed - 08/28/2023 3:57 AM Failed - This refill cannot be delegated Passed - Visit with relevant provider in past 12 months or upcoming 90 days Recent Visits Date Type Provider Dept 05/23/23 Office Visit Fco Llanes MD [facility] 01/24/23 Office Visit Fco Llanes MD [facility] 09/20/22 Office Visit Fco Llanes MD [facility] Showing recent visits within past 365 days and meeting all other requirements Future Appointments Date Type Provider Dept 09/26/23 Appointment Fco Llanes MD [facility] Showing future appointments within next 90 days and meeting all other requirements RRAL MANAGEMENT LIAISON documented in this encounter Plan of Treatment Upcoming Encounters Date Type Department Care Team (Late st Contact Info) Description 10/11/2024 1:15 PM REFERRAL MANAGEMENT LIAISON [facility] - [place] [address] [place] [address] Della Whaley, DO 2 [place] [facility] [address] [place] [address] documented as of this encounter Visit Diagnoses Not on filedocumented in this encounter Additional Health Concerns Assessment Noted Time PHQ-9 Depression Total Score: 5 11/17/19 22 9:00 AM CDT documented as of this encounter Care Teams Laser Engineer Relationship Specialty Start Date End Date Fco Llanes MD PCP - General Family Medicine 07/14/20 01/28/24 Della Whaley DO 2 [facility] [address] [place] [address] PCP - General Family Medicine 01/30/24 Uche Haley MD [address] [place] [address] [address] Consulting Physician General Surgery 02/21/23 documented as of this encounter
--- OUTSIDE RECORDS SUMMARY | 2024-10-05 15:49 | XMS_ITS | Encounter Summary ---
Author Organization [facility] Address [address] [facility] [place] [address] Phone Care Team Providers Care Transformer Builder Name Role Phone Fco Llanes MD Primary Care Provider [phone] Uche Haley MD Unavailable [phone] Della Whaley DO Primary Care Provider [phone] Reason for Visit * Reason Comments Medication Refill Encounter Details Date Type Department Care Team (Late st Contact Info) Description 03/18/2021 Refill [facility] - Family Medicine [facility] [address]2 [place] [phone] Fco Llanes MD [address] [place] [address] Medication Refill Social History Tobacco Use Types Packs/Day Years Used Date Smoking Tobacco: Never Smokeless Tobacco: Never Alcohol Use Standard Drinks/Week Comments No 0 (1 standard drink = 0.6 oz pur e alcohol) PHQ-2 Answer Date Recorded Total Score - Questions 1-9 14 07/11 Comments No Sex and Gender Information Value Date Recorded Sex Assigned at Female 07/10/2023 4:42 AM PIPE ASSEMBLY WORKER Legal Sex Female 3:32 PM PIPE ASSEMBLY WORKER Gender Identity Female 07/10/2023 4:42 AM PIPE ASSEMBLY WORKER Sexual Orientation Straight 07/10/2023 4: 42 AM PIPE ASSEMBLY WORKER documented as of this encounter Miscellaneous Notes * Telephone Encounter - Beatrice Cid RN - 03/19/2021 2:10 PM CDT Is patient suppose to be taking Januvia? Last fill 02/16/21 Medication failed the protocol, provider to review and approve the medication order if appropriate. Requested Prescriptions Pending Prescriptions Disp Refills sertraline (ZOLOFT) 50 MG Tablet [Pharmacy Med Name: SERTRALINE 50MG TABLETS] 30 Tablet 0 Sig: TAKE 1 TABLET BY MOUTH DAILY SSRI (6 Month Refill Only) Protocol Failed - 03/19/2021 2:10 PM Failed - Patient has established therapy with SSRI [...] requirements Future Appointments Date Type Provider Dept 03/30/21 Appointment Fco Llanes MD [facility] Showing future appointments within next 90 days and meeting all other requirements Passed - Has an encounter in the past 6 months with a depression, anxiety, adjustment disorder, OCD, or PTSD visit diagnosis Januvia 100 MG Tablet [Pharmacy Med Name: JANUVIA 100MG TABLETS] 30 Tablet 0 Sig: TAKE 1 TABLET BY MOUTH DAILY DPP-4 Inhibitors Protocol Failed - 03/19/2021 2:10 PM Failed - Active on med list Failed - HgA1C on record in the past 6 months HGB-A1C Date Value Ref Range Status 07/21/2020 10.5 (H) 4.0 - 6.0 % Final Failed - GFR on record in past 6 months No results found for: GFRNA Passed - Visit with relevant provider in past 6 months or upcoming 90 days Recent Visits Date Type Provider Dept 11/03/20 Office Visit Fco Llanes MD [facility] Showing recent visits within past 182 days and meeting all other requirements Future Appointments Date Type Provider Dept 03/30/21 Appointment Fco Llanes MD [facility] Showing future appointments within next 90 days and meeting all other requirements documented in this encounter Plan of Treatment Upcoming Encounters Date Type Department Care Team (Late st Contact Info) Description 10/11/2024 1:15 PM PIPE ASSEMBLY WORKER Office Visit [facility] Medical Group - Family Medicine - [place] [address] [place] [address] Della Whaley DO 2 [facility] [address] [place] [address] documented as of this encounter Visit Diagnoses Diagnosis Major depressive episode Major depressive disorder, single episode, unspecified documented in this encounter Additional Health Concerns Infection Onset Date Last Indicated Resolved Time COVID - 19 11/26/2021 11/26/2021 12/16/2021 12:1 7 AM CDT Assessment Noted Time PHQ-9 Depression Total Score: 14 020 9:39 AM PIPE ASSEMBLY WORKER documented as of this encounter Care Teams Transformer Builder Relationship Specialty Start Date End Date Fco Llanes MD PCP - General Family Medicine 07/14/20 01/28/24 Della Whaley DO [address] [facility] [place] [facility] [facility] [address] [place] [address] PCP - General Family Medicine 01/30/24 Uche Haley MD [address] [address] Consulting Physician General Surgery 02/21/23 documented as of this encounter
--- OUTSIDE RECORDS SUMMARY | 2024-10-05 15:49 | XMS_ITS | Encounter Summary ---
Author Organization [facility] Address [address] [facility] [place] [address] Phone Care Team Providers Care Electrostatic Paint Operator Name Role Phone Fco Llanes MD Primary Care Provider [phone] Uche Haley MD Unavailable [phone] Delal Whaley DO Primary Care Provider [phone] Reason for Visit * Reason Comments Medication Refill Encounter Details Date Type Department Care Team (Late st Contact Info) Description 09/30/2023 Refill [facility] - Family Medicine [facility] #[address] [place] [address] Fco Llanes MD [address]1 [place] [address] Medication Refill Social History Tobacco Use Types [...] Sex Assigned at Female 07/10/2023 4:42 AM TECHNICAL CABLE JOINTER Legal Sex Female 3:32 PM TECHNICAL CABLE JOINTER Gender Identity Female 07/10/2023 4:42 AM TECHNICAL CABLE JOINTER Sexual Orientation Straight 07/10/2023 4: 42 AM TECHNICAL CABLE JOINTER documented as of this encounter Miscellaneous Notes * Telephone Encounter - Beatrice Cid RN - 09/30/2023 2:44 PM CST Medication failed the protocol, provider to review and approve the medication order if appropriate. Requested Prescriptions Pending Prescriptions Disp Refills cyclobenzaprine (FLEXERIL) 10 MG Tablet [Pharmacy Med Name: CYCLOBENZAPRINE 10MG TABLETS] 42 Tablet0 Sig: TAKE 1 TABLET BY MOUTH THREE TIMES DAILY NEEDED FOR MUSCLE SPASMS Not Delegated - Muscle Relaxants Protocol Failed - 09/30/2023 3:57 AM Failed - This refill cannot be delegated Passed - Visit with relevant provider in past 12 months or upcoming 90 days Recent Visits Date Type Provider Dept 09/26/23 Office Visit Fco Llanes MD [facility] [place] 05/23/23 Office Visit Fco Llanes MD [facility] 01/24/23 Office Visit Fco Llanes MD [facility] Showing recent visits within past 365 days and meeting all other requirements Future Appointments No visits were found meeting these conditions. Showing future appointments within next 90 days and meeting all other requirements NICAL CABLE JOINTER documented in this encounter Plan of Treatment Upcoming Encounters Date Type Department Care Team (Late st Contact Info) Description 10/11/2024 1:15 PM TECHNICAL CABLE JOINTER Office Visit [facility] Medical Group - Family Medicine - [place] [address] [place] [address] Della Whaley, DO 2 [place] [facility] [address] [place] [address] documented as of this encounter Visit Diagnoses Diagnosis Chronic tension-type headache, not intractable Chronic tension type headache documented in this encounter Additional Health Concerns Assessment Noted Time PHQ-9 Depression Total Score: 5 11/17/19 22 9:00 AM CDT documented as of this encounter Care Teams Electrostatic Paint Operator Relationship Specialty Start Date End Date Fco Llanes MD PCP - General Family Medicine 07/14/20 01/28/24 Della Whaley DO [address] [place] [address] PCP - General Family Medicine 01/30/24 Uche Haley MD [address] [place] [address] [address] Consulting Physician General Surgery 02/21/23 documented as of this encounter
--- OUTSIDE RECORDS SUMMARY | 2024-10-05 15:49 | XMS_ITS | Encounter Summary ---
Author Organization [facility] Address [address] [facility] [place] [address] Phone Care Team Providers Care Vehicle Refinisher Name Role Phone Fco Llanes MD Primary Care Provider [phone] Uche Haley MD Unavailable [phone] Della Whaley DO Primary Care Provider [phone] Reason for Visit * Reason Comments Medication Refill Encounter Details Date Type Department Care Team (Late st Contact Info) Description 04/27/2021 Refill [facility] - Family Medicine [facility] #2 [place] [phone] Fco Llanes MD [address] [place] [address] Medication Refill Social History Tobacco Use Types [...] Sex Assigned at Female 07/10/2023 4:42 AM SPORTS COMMENTATOR Legal Sex Female 3:32 PM SPORTS COMMENTATOR Gender Identity Female 07/10/2023 4:42 AM SPORTS COMMENTATOR Sexual Orientation Straight 07/10/2023 4: 42 AM SPORTS COMMENTATOR COVID-19 Exposure Response Date Recorded In the last month, have you been in contact with someone who was confirmed or suspected to have Coronavirus / COVID-19? No / Unsure 03/30/2021 12:40 AM CDT documented as of this encounter Miscellaneous Notes * Telephone Encounter - Louise Gutierrez RN - 04/27/2021 8:32 AM CDT Medication failed the protocol, provider to review and approve the medication order if appropriate. Requested Prescriptions Pending Prescriptions Disp Refills busPIRone (BUSPAR) 10 MG Tablet [Pharmacy Med Name: BUSPIRONE 10MG TABLETS] 90 Tablet 2 Sig: TAKE 1 TABLET BY MOUTH THREE TIMES DAILY Buspirone (6 Month Refill Only) Protocol Failed - 04/27/2021 8:32 AM Failed - Patient has established therapy [...] [place] 11/03/20 Office Visit Fco Llanes MD [facility] [place] Showing recent visits within past 182 days and meeting all other requirements Future Appointments No visits were found meeting these conditions. Showing future appointments within next 90 days and meeting all other requirements Passed - Has an encounter in the past 6 months with a depression or anxiety visit diagnosis sertraline (ZOLOFT) 50 MG Tablet [Pharmacy Med Name: SERTRALINE 50MG TABLETS] 30 Tablet 0 Sig: TAKE 1 TABLET BY MOUTH DAILY SSRI (6 Month Refill Only) Protocol Failed - 04/27/2021 8:32 AM Failed - Patient has established therapy [...] adjustment disorder, OCD, or PTSD visit diagnosis Signed Prescriptions Disp Refills Januvia 100 MG Tablet 30 Tablet 0 Sig: TAKE 1 TABLET BY MOUTH DAILY DPP-4 Inhibitors Protocol Passed - 04/27/2021 7:58 AM Passed - Visit with relevant provider [...] 8.6 (H) 4.0 - 6.0 % Final Passed - GFR on record in past 6 months GFR, EST. NONAFRICAN Date Value Ref Range Status 03/30/2021 >60 >=60 Final documented in this encounter Plan of Treatment Upcoming Encounters Date Type Department Care Team (Late st Contact Info) Description 10/11/2024 1:15 PM SPORTS COMMENTATOR [facility] - [place] [address] [place] [address] Della Whaley, DO [address] [address] documented as of this encounter Visit Diagnoses Diagnosis Major depressive episode Major depressive disorder, single episode, unspecified documented in this encounter Additional Health Concerns Infection Onset Date Last Indicated Resolved Time COVID - 19 11/26/2021 11/26/2021 12/16/2021 12:1 7 AM CDT Assessment Noted Time PHQ-9 Depression Total Score: 14 020 9:39 AM SPORTS COMMENTATOR documented as of this encounter Care Teams Vehicle Refinisher Relationship Specialty Start Date End Date Fco Llanes MD PCP - General Family Medicine 07/14/20 01/28/24 Della Whaley DO [address] [place], [place] [phone] PCP - General Family Medicine 01/30/24 Uche Haley MD #[address] [place] [facility] [facility] [address] [place] [address] Consulting Physician General Surgery 02/21/23 documented as of this encounter
--- OUTSIDE RECORDS SUMMARY | 2024-10-05 15:49 | XMS_ITS | Encounter Summary ---
Author Organization [facility] Address [address] [facility] [place] [address] Phone Care Team Providers Care Rodding Machine Tender Name Role Phone Fco Llanes MD Primary Care Provider [phone] Uche Haley MD Unavailable [phone] Della Whaley DO Primary Care Provider [phone] Reason for Visit * Reason Comments Medication Refill Encounter Details Date Type Department Care Team (Late st Contact Info) Description 01/25/2021 Refill [facility] - Family Medicine [facility] #2 [place] [phone] Fco Llanes MD [address] [place] [address] Medication Refill Social History Tobacco Use Types Packs/Day Years Used Date Smoking Tobacco: Never Smokeless Tobacco: Never Alcohol Use Standard Drinks/Week Comments No 0 (1 standard drink = 0.6 oz pur e alcohol) PHQ-2 Answer Date Recorded Total Score - Questions 1-9 14 07/11 Comments No Sex and Gender Information Value Date Recorded Sex Assigned at Female 07/10/2023 4:42 AM COMBUSTION ENGINEER Legal Sex Female 3:32 PM COMBUSTION ENGINEER Gender Identity Female 07/10/2023 4:42 AM COMBUSTION ENGINEER Sexual Orientation Straight 07/10/2023 4: 42 AM COMBUSTION ENGINEER documented as of this encounter Miscellaneous Notes * Telephone Encounter - Beatrice Cid RN - 01/25/2021 3:57 PM CDT [place] 12/22/20 - last appt 11/03/20 - no follow up Medication failed the protocol, provider to review [...] st Contact Info) Description 10/11/2024 1:15 PM COMBUSTION ENGINEER Office Visit [facility] - Family Medicine - [place] [address] [place] [address] Della Whaley DO [address] [address] documented as of this encounter Visit Diagnoses Not on filedocumented in this encounter Additional Health Concerns Infection Onset Date Last Indicated Resolved Time COVID - 19 11/26/2021 11/26/2021 12/16/2021 12:1 7 AM CDT Assessment Noted Time PHQ-9 Depression Total Score: 14 020 9:39 AM COMBUSTION ENGINEER documented as of this encounter Care Teams Rodding Machine Tender Relationship Specialty Start Date End Date Fco Llanes MD PCP - General Family Medicine 07/14/20 01/28/24 Della Whaley DO [address] [address] PCP - General Family Medicine 01/30/24 Uche Haley MD #[address] [phone] Consulting Physician General Surgery 02/21/23 documented as of this encounter
--- OUTSIDE RECORDS SUMMARY | 2024-10-05 15:49 | XMS_ITS | Encounter Summary ---
Author Organization [facility] Address [address] [place] [address] Phone Care Team Providers Care Chief Operator Lock Tender Name Role Phone Fco Llanes MD Primary Care Provider [phone] Uche Haley MD Unavailable [phone] Della Whaley DO Primary Care Provider Reason for Visit * Reason Comments Medication Refill Encounter Details Date Type Department Care Team (Late st Contact Info) Description 02/16/2021 Refill [facility] - Family Medicine [facility] [address] [place] [phone] Fco Llanes MD [address] [place] [address] Medication Refill Social History Tobacco Use Types Packs/Day Years Used Date Smoking Tobacco: Never Smokeless Tobacco: Never Alcohol Use Standard Drinks/Week Comments No 0 (1 standard drink = 0.6 oz pur e alcohol) PHQ-2 Answer Date Recorded Total Score - Questions 1-9 14 07/11 Comments No Sex and Gender Information Value Date Recorded Sex Assigned at Female 07/10/2023 4:42 AM DIVINITY PROFESSOR Legal Sex Female 3:32 PM DIVINITY PROFESSOR Gender Identity Female 07/10/2023 4:42 AM DIVINITY PROFESSOR Sexual Orientation Straight 07/10/2023 4: 42 AM DIVINITY PROFESSOR COVID-19 Exposure Response Date Recorded In the last month, have you been in contact with someone who was confirmed or suspected to have Coronavirus / COVID-19? No / Unsure 02/02/2021 9:30 AM CDT documented as of this encounter Miscellaneous Notes * Telephone Encounter - Beatrice Cid RN - 02/16/2021 12:19 PM CDT Patient has appointment with you TODAY Medication failed the protocol, provider to review and approve the medication order if appropriate. Requested Prescriptions Pending Prescriptions Disp Refills sertraline (ZOLOFT) 50 MG Tablet [Pharmacy Med Name: SERTRALINE 50MG TABLETS] 90 Tablet 1 Sig: Take 1 Tablet by mouth daily. SSRI (6 Month Refill Only) Protocol Failed - 02/16/2021 5:46 AM Failed - Patient has establiashed therapy with SSRI for at least 6 months Passed - No test in the past 12 months or most recent test was negative Passed - No active on record Passed - Visit with relevant provider in past 6 months or upcoming 90 days Recent Visits Date Type Provider Dept 11/03/20 Office Visit Fco Llanes MD [facility] [place] Showing recent visits within past 182 days and meeting all other requirements Today's Visits Date Type Provider Dept 02/16/21 Appointment Fco Llanes MD [facility] [place] Showing today's visits and meeting all other [...] st Contact Info) Description 10/11/2024 1:15 PM DIVINITY PROFESSOR Office Visit [facility] - Family Medicine - [place] [address] [place] [address] Della Whaley, DO [address] [facility] [address] [address] documented as of this encounter Visit Diagnoses Diagnosis Major depressive episode Major depressive disorder, single episode, unspecified documented in this encounter Additional Health Concerns Infection Onset Date Last Indicated Resolved Time COVID - 19 11/26/2021 11/26/2021 12/16/2021 12:1 7 AM CDT Assessment Noted Time PHQ-9 Depression Total Score: 14 020 9:39 AM DIVINITY PROFESSOR documented as of this encounter Care Teams Chief Operator Lock Tender Relationship Specialty Start Date End Date Fco Llanes MD PCP - General Family Medicine 07/14/20 01/28/24 Della Whaley DO [address] [facility] [address] [facility]. [address] [place] [address] PCP - General Family Medicine 01/30/24 Uche Haley MD [address] [facility] [address] [place] [address] Consulting Physician General Surgery 02/21/23 documented as of this encounter
--- OUTSIDE RECORDS SUMMARY | 2024-10-05 15:49 | XMS_ITS | Encounter Summary ---
Author Organization [facility] Address [address] [facility] [place] [address] Phone Care Team Providers Care Fixer Boarding Room Name Role Phone Fco Llanes MD Primary Care Provider [phone] Uche Haley MD Unavailable [phone] Della Whaley DO Primary Care Provider [phone] Reason for Visit * Reason Comments Medication Refill Encounter Details Date Type Department Care Team (Late st Contact Info) Description 06/18/[address] [facility] - Family Medicine [facility] [address] [place] [phone] Fco Llanes MD [address] [place] [address] Medication Refill Social History Tobacco Use Types [...] Sex Assigned at Female 07/10/2023 4:42 AM LABORATORY MONITOR Legal Sex Female 3:32 PM LABORATORY MONITOR Gender Identity Female 07/10/2023 4:42 AM LABORATORY MONITOR Sexual Orientation Straight 07/10/2023 4: 42 AM LABORATORY MONITOR COVID-19 Exposure Response Date Recorded In the last 10 days, have yo u been in contact with someone who was confirmed or suspected to have Coronavirus/COVID-19? No / Unsure 05/23/2023 10:27 AM CDT documented as of this encounter Miscellaneous Notes * Telephone Encounter - Beatrice Cid RN - 06/18/2023 8:55 AM CST Medication failed the protocol, provider to review and approve the medication order if appropriate. Requested Prescriptions Pending Prescriptions Disp Refills cyclobenzaprine (FLEXERIL) 10 MG Tablet [Pharmacy Med Name: CYCLOBENZAPRINE 10MG TABLETS] 42 Tablet0 Sig: TAKE 1 TABLET BY MOUTH THREE TIMES DAILY NEEDED FOR MUSCLE SPASMS Not Delegated - Muscle Relaxants Protocol Failed - 06/18/2023 3:56 AM Failed - This refill cannot be delegated Passed - Visit with relevant provider in past 12 months or upcoming 90 days Recent Visits Date Type Provider Dept 05/23/23 Office Visit Fco Llanes MD [facility] 01/24/23 Office Visit Fco Llanes MD [facility] 09/20/22 Office Visit Fco Llanes MD [facility] Showing recent visits within past 365 days and meeting all other requirements Future Appointments No visits were found meeting these conditions. Showing future appointments within next 90 days and meeting all other requirements RATORY MONITOR documented in this encounter Plan of Treatment Upcoming Encounters Date Type Department Care Team (Late st Contact Info) Description 10/11/2024 1:15 PM LABORATORY MONITOR Office Visit [facility] - Family Medicine - [place] [address] [place] [address] Della Whaley, DO [address] [facility] [address], [facility]. [address] [place] [address] documented as of this encounter Visit Diagnoses Diagnosis Chronic tension-type headache, not intractable Chronic tension type headache documented in this encounter Additional Health Concerns Assessment Noted Time PHQ-9 Depression Total Score: 5 11/17/19 22 9:00 AM CDT documented as of this encounter Care Teams Fixer Boarding Room Relationship Specialty Start Date End Date Fco Llanes MD PCP - General Family Medicine 07/14/20 01/28/24 Della Whaley DO [address] [facility]. [address] [place] [address] PCP - General Family Medicine 01/30/24 Uche Haley MD [address] [facility] [address] [place] [address] Consulting Physician General Surgery 02/21/23 documented as of this encounter
--- OUTSIDE RECORDS SUMMARY | 2024-10-05 15:49 | XMS_ITS | Encounter Summary ---
Author Organization [facility] Address [address] [facility] [place] [address] Phone Care Team Providers Care Development Planner Name Role Phone Fco Llanes MD Primary Care Provider [phone] Uche Haley MD Unavailable [phone] Della Whaley DO Primary Care Provider [phone] Reason for Visit * Reason Comments Medication Refill Encounter Details Date Type Department Care Team (Late st Contact Info) Description 04/07/2021 Refill [facility] - Family Medicine [facility] [address] [place] [phone] Fco Llanes MD [address] [place] [address] Medication Refill Social History Tobacco Use Types [...] Sex Assigned at Female 07/10/2023 4:42 AM PLATE SETTER Legal Sex Female 3:32 PM PLATE SETTER Gender Identity Female 07/10/2023 4:42 AM PLATE SETTER Sexual Orientation Straight 07/10/2023 4: 42 AM PLATE SETTER COVID-19 Exposure Response Date Recorded In the last month, have you been in contact with someone who was confirmed or suspected to have Coronavirus / COVID-19? No / Unsure 03/30/2021 12:40 AM CDT documented as of this encounter Miscellaneous Notes * Telephone Encounter - Beatrice Cid RN - 04/09/2021 2:14 PM CDT pregabalin (Lyrica) 25 MG Capsule 270 Cap 3 07/21/2020 Sig - Route: Take 1 Cap by mouth 3 times daily. - Oral Sent to pharmacy as: Pregabalin 25 MG Oral Capsule (Lyrica) Class: E Prescribe E-Prescribing Status: Receipt confirmed by pharmacy (07/21/2020 10:13 AM PLATE SETTER) Order Questions ?? pregabalin (Lyrica) 25 MG Capsule [[id number]] 1013 Status: Active Ordering user: Fco Llanes MD 07/21/20 1013 Authorized by: Fco Llanes MD Frequency: TID 07/21/20 - Until Discontinued [id number] [address] [facility] documented in this encounter Plan of Treatment Upcoming Encounters Date Type Department Care Team (Late st Contact Info) Description 10/11/2024 1:15 PM PLATE SETTER Office Visit [facility] - Family Medicine - [place] [address] [place] [address] Della Whaley, DO [address] [facility] [address] [facility] [facility]. [address] [place] [address] documented as of this encounter Visit Diagnoses Not on filedocumented in this encounter Additional Health Concerns Infection Onset Date Last Indicated Resolved Time COVID - 19 11/26/2021 11/26/2021 12/16/2021 12:1 7 AM CDT Assessment Noted Time PHQ-9 Depression Total Score: 14 020 9:39 AM PLATE SETTER documented as of this encounter Care Teams Development Planner Relationship Specialty Start Date End Date Fco Llanes MD PCP - General Family Medicine 07/14/20 01/28/24 Della Whaley DO [address] [facility] [address] [facility] [facility]. [address] [place] [address] PCP - General Family Medicine 01/30/24 Uche Haley MD [address] [facility] [address] [place] [address] Consulting Physician General Surgery 02/21/23 documented as of this encounter
--- OUTSIDE RECORDS SUMMARY | 2024-10-05 15:49 | XMS_ITS | Data Portability ---
Author Organization [facility] Address [address] [place] [address] Care Team Providers Care Peanut Vendor Name Role Phone MAXINE WHITE Stockroom Inventory Clerk Assessment No assessment recorded. Plan of Treatment Reminders Order Date Submit Date Provider Last Modified By Organization Details Last Modified Time Details Appointments None recorded. Lab cytology report, thin prep, smear or scraping, cervical or vaginal 2022 023 [facility], 20[address] Ernestine Mcdonald, [address], [place], [address], 3 16:14:21 pap, IG + HPV, cervical 2019 020 [facility], 2022 Ernestine Mcdonald, [address], [place], [address], 0 11:10:07 Referral breast center referral 2023 024 LOCKE Kaur dia MD, [address] [facility], [facility], [place], [address], 4 16:51:01 Procedures None recorded. Surgeries None recorded. Imaging None recorded. Medication Orders None recorded. Patient TargetsNo targets recorded. Patient Instructions Encounter Date Encounter Id Patient Instructions Last Modified By Organization Details Last Modified Time 03/05/2024 [id number] breast pain: care instructions [email or web address] Not available 03/05/2024 15:45:22 A healthy lifestyle: care instructions [email or web address] Not available 03/05/2024 15:45:22 Reason for Referral Breast Center Referral for P ain of breast Referring Physician: Dagmar Chen, Telehealth Nurse, Encounter Date: 03/05/2024 Results Created Date Observation Date Name Description Value Unit Range Abnormal Flag Note LastModifiedBy Organization Detail LastModifiedTime 08/31/19 20 09/02/2019 pap, IG + HPV, cervi sandra HPV aptima Negati ve negati ve This nucle ic acid ampli ficat ion test detec ts fourt een high- risk HPV types (16,1 8,31, 33,35 ,39,4 5,51, 52,56 ,58,5 9,66, 68) witho ut diffe renti ation . Not Available [facility] ([facility]) [address] [place], [address], 09/03/2019 11:10:07 08/31/19 20 09/03/2019 pap, IG + HPV, cervi sandra diagnosis: Commen t abnormal EPITH ELIAL CELL ABNOR MALIT Y. ATYPI SANDRA SQUAM OUS CELLS OF UNDET ERMIN ED SIGNI FICAN CE (ASC- [place]). Not Available [facility] ([facility]) [address] [place], [address], 09/03/2019 11:10:07 08/31/19 20 09/03/2019 pap, IG + HPV, cervi sandra specimen adequacy: Commen t Satis facto ry for evalu ation . Endoc ervic al and/o r squam ous metap lasti c cells (endo cervi sandra compo nent) are prese nt. Not Available [facility] ([facility]) [address] [place], [address], 09/03/2019 11:10:07 08/31/19 20 09/03/2019 pap, IG + HPV, cervi sandra clinician provided ICD10: Samantha t Z01.4 19 Not Available [facility] ([facility]) [address] [place], [address], 09/03/2019 11:10:07 08/31/19 20 09/03/2019 pap, IG + HPV, cervi sandra performed by: Samantha curtis, Cytot echno logis t (ASCP ) Not Available [facility] ([facility]) [address] [place], [address], 09/03/2019 11:10:07 08/31/19 20 09/03/2019 pap, IG + HPV, cervi sandra electronical ly signed by: Samantha Whitlock MD, Patho logis t Not Available [facility] ([facility]) [address] [place], [address], 09/03/2019 11:10:07 08/31/19 20 09/03/2019 pap, IG + HPV, cervi sandra . . Not Available [facility] ([facility]) [address] [place], [address], 09/03/2019 11:10:07 08/31/19 20 09/03/2019 pap, IG + HPV, cervi sandra pathologist provided ICD10: Samantha foster R87.6 10 Not Available [facility] ([facility]) [address] [place], [address], 09/03/2019 11:10:07 08/31/19 20 09/03/2019 pap, IG + HPV, cervi sandra note: Samantha foster The Pap smear is a scree shakeel test desig gamal to aid in the detec tion of elmer ligna nt and malig nant condi tions of the uteri ne cervi x. It is not a diagn ostic proce dure and shoul d not be used as the sole means of detec ting cervi sandra cance r. Both false -posi tive and false -nega tive repor ts do occur . Not Available [facility] ([facility]) [address] [place], [address], 09/03/2019 11:10:07 08/31/19 20 09/03/2019 pap, IG + HPV, cervi sandra test methodology: Commen t This liqui d based ThinP rep(R ) pap test was tomi yeung with the use of an image guide cedric esquivel Not Available [facility] ([facility]) [address] [place], [address], 09/03/2019 11:10:07 12/21/19 23 12/23/2022 IGP, APTIM A HPV, RFX 16/18 ,45 HPV aptima Negati ve negati ve This nucle ic acid ampli ficat ion test detec ts fourt een high- risk HPV types (16,1 8,31, 33,35 ,39,4 5,51, 52,56 ,58,5 9,66, 68) witho ut diffe renti ation . Not Available [facility] ([facility]) [address] [facility], [place], [address], 12/27/2022 16:14:21 12/21/19 23 12/27/2022 IGP, APTIM A HPV, RFX 16/18 ,45 diagnosis: Commen t abnormal EPITH ELIAL CELL ABNOR MALIT Y. ATYPI SANDRA SQUAM OUS CELLS OF UNDET ERMIN ED SIGNI FICAN CE (ASC- [place]). Not Available [facility] ([facility]) [address] [place], [address], 12/27/2022 16:14:21 12/21/19 23 12/27/2022 IGP, APTIM A HPV, RFX 16/18 ,45 recommendati on: Commen t abnormal Sugge st follo w up as clini cesia appro priat e. Not Available [facility] ([facility]) [address] [place], [address], 12/27/2022 16:14:21 12/21/19 23 12/27/2022 IGP, APTIM A HPV, RFX 16/18 ,45 specimen adequacy: Commen t Satis facto ry for evalu ation . Endoc ervic al and/o r squam ous metap lasti c cells (endo cervi sandra compo nent) are prese nt. Not Available [facility] ([facility]) [address] [facility], [place], [address], 12/27/2022 16:14:21 12/21/19 23 12/27/2022 IGP, APTIM A HPV, RFX 16/18 ,45 clinician provided ICD10: Samantha foster Z01.4 19 Not Available [facility] ([facility]) [address] [place], [address], 12/27/2022 16:14:21 12/21/19 23 12/27/2022 IGP, APTIM A HPV, RFX 16/18 ,45 performed by: Samantha King ams, Cytot alonso artis t (ASCP ) Not Available [facility] ([facility]) [address] [place], [address], 12/27/2022 16:14:21 12/21/19 23 12/27/2022 IGP, APTIM A HPV, RFX 16/18 ,45 electronical ly signed by: Samantha dia MD, Patho logis t Not Available [facility] ([facility]) [address] [facility], [place], [address], 12/27/2022 16:14:21 12/21/19 23 12/27/2022 IGP, APTIM A HPV, RFX 16/18 ,45 . . Not Available [facility] ([facility]) [address] [place], [address], 12/27/2022 16:14:21 12/21/19 23 12/27/2022 IGP, APTIM A HPV, RFX 16/18 ,45 pathologist provided ICD10: Samantha foster R87.6 10 Not Available [facility] ([facility]) [address] [place], [address], 12/27/2022 16:14:21 12/21/19 23 12/27/2022 IGP, APTIM A HPV, RFX 16/18 ,45 note: Commen t The Pap smear is a scree shakeel test desig gamal to aid in the detec tion of elmer ligna nt and malig nant condi tions of the uteri ne cervi x. It is not a diagn ostic proce dure and shoul d not be used as the sole means of detec ting cervi sandra cance r. Both false -posi tive and false -nega tive repor ts do occur . Not Available [facility] ([facility]) [address] [facility], [place], [address], 12/27/2022 16:14:21 12/21/1912/27/2022 IGP, APTIM A HPV, RFX 16/18 ,45 test methodology: Commen t This liqui d based ThinP rep(R ) pap test was scree gamal with the use of an image guide d turner m. Not Available [facility] ([facility]) [address] [facility], [place], [address], 12/27/2022 16:14:21 12/21/1912/27/2022 IGP, APTIM A HPV, RFX 16/18 ,45 HPV genotype reflex Commen t Crite zohaib not met, HPV Genot ype not perfo rmed. Not Available [facility] ([facility]) [address] [place], [address], 12/27/2022 16:14:21 Result Notes None recorded. 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 Katya Fagan MA null, [place] - [facility] 0 16:13:44 Diabetes mellitus 60321702 Active 2017 Katya Fagan [place], [place] [facility] 0 16:13:44 Mood disorder 47173025 Active 2017 Katya Fagan [place] null, [place] - [facility] 0 16:13:44 Hypothyroid ism 45452118 Active 2017 Katya Fagan MA null, [facility] 0 16:13:44 Gastroesoph ageal reflux disease without esophagitis 182457306 Active 2017 Katya Fagan MA null, [facility] 0 16:13:44 Hyperlipide naman 43345071 Active 2017 Katya Fagan MA null, [facility] 0 16:13:44 Family history of stroke 443854486 Active 2017 Katya Fagan MA null, [facility] 0 16:13:44 Body mass index 30+ - obesity 809705089 Active 2017 SANDRA Mohamud, [facility] 0 16:13:44 Proteinuria 02599442 Completed 201705/08/2019 Celena millard, [facility] 9 18:25:41 Adult health examination Active 2017 SANDRA Mohamud, [facility] 0 16:13:44 Problem Notes None recorded. Procedures Surgical History Date Name Laterality Status Provider Name and Address Organization Details Recorded Time 12/20/2022 Date of Last Pap Smear completed Brenda Castañeda RN [facility] 12/27/2022 16:17:30 Imaging Results None recorded. Procedure Notes None recorded. Medical Equipment None Reported. Allergies No known drug allergies Medications Name Sig Start Date Stop Date Status Note LastModified by Organization Details LastModified Time cyclobenz aprine 10 mg tablet TAKE 1 TABLET BY MOUTH THREE TIMES DAILY NEEDED FOR MUSCLE SPASMS active Not Available Not Available No t Available metformin 500 mg tablet TAKE 2 TABLETS BY MOUTH TWICE DAILY WITH MEALS active Not Available Not Available No t Available venlafaxi ne ER 37.5 mg capsule,e xtended release 24 hr TAKE 1 CAPSULE BY MOUTH ONCE DAILY 05/08 completed Not Available Not Available Not Available atorvasta tin 20 mg tablet TAKE 1 TABLET BY MOUTH ONCE DAILY 03/05 completed Not Available Not Available Not Available tizanidin e 4 mg tablet 02/09 completed Not Available Not Available Not Available sertralin e 100 mg tablet TAKE 1 TABLET BY MOUTH DAILY active Not Available Not Available No t Available amoxicill in 875 mg tablet 04/21 completed Not Available Not Available Not Available amitripty line 25 mg tablet TAKE 1 TABLET BY MOUTH EVERY NIGHT active Not Available Not Available No t Available magnesium oxide 400 mg (241.3 mg magnesium ) tablet active Not Available Not Available Not Available methocarb baylee 750 mg tablet TAKE 1 TABLET BY MOUTH THREE TIMES DAILY. FOLLOW UP 12/06 completed Not Available Not Available Not Available OneToClarityAd Ultra Test strips USE TO TEST FOUR TIMES DAILY active Not Available Not Available No t Available Humulin R Regular U-100 Insulin 100 unit/mL injection solution Take 5 units by injectio n route. 05/27 completed Not Available Not Available Not Available pantopraz ole 40 mg tablet,de layed release TAKE 1 TABLET BY MOUTH DAILY active Not Available Not Available No t Available fluoxetin e 20 mg tablet TAKE 1 TABLET BY MOUTH ONCE DAILY 04/13 completed capsules covered Not Available Not Available Not Available levothyro xine 125 mcg tablet TAKE 1 TABLET BY MOUTH DAILY active Not Available Not Available No t Available buspirone 10 mg tablet TAKE 1 TABLET BY MOUTH THREE TIMES DAILY 03/05 completed Not Available Not Available Not Available glimepiri de 4 mg tablet TAKE 1 TABLET BY MOUTH EVERY MORNING 03/05 completed Not Available Not Available Not Available losartan 25 mg tablet TAKE 1 TABLET BY MOUTH EVERY DAY active Not Available Not Available No t Available omeprazol e 20 mg capsule,d elayed release Take 1 capsule every day by oral route. 12/10 completed Not Available Not Available Not Available monteluka st 10 mg tablet TAKE 1 TABLET BY MOUTH ONCE DAILY 03/05 completed Not Available Not Available Not Available hydroxyzi ne HCl 25 mg tablet TAKE 1 TABLET BY MOUTH THREE TIMES DAILY NEEDED 03/05 completed Not Available Not Available Not Available gabapenti n 100 mg capsule 02/05 completed Not Available Not Available Not Available ergocalci ferol (vitamin D2) 1,250 mcg (50,000 unit) capsule TAKE 1 CAPSULE BY MOUTH ONCE A WEEK active Not Available Not Available No t Available zolpidem 10 mg tablet TAKE 1 TABLET BY MOUTH EVERY NIGHT NEEDED FOR SLEEP active Not Available Not Available No t Available ondansetr on 4 mg disintegr ating tablet DISSOLVE ONE TABLET BY MOUTH EVERY 8 HOURS NEEDED FOR NAUSEA - 1ST LINE 03/05 completed Not Available Not Available Not Available fluoxetin e 20 mg capsule TK ONE C PO QD 03/05 completed Not Available Not Available Not Available sertralin e 50 mg tablet TAKE 1 TABLET BY MOUTH DAILY 03/05 completed Not Available Not Available Not Available amoxicill in 875 mg-potass ium clavulana te 125 mg tablet TAKE 1 TABLET BY MOUTH TWICE DAILY FOR 10 DAYS 12/20 completed Not Available Not Available Not Available buspirone 15 mg tablet TAKE 1 TABLET BY MOUTH THREE TIMES DAILY active Not Available Not Available No t Available Fish Oil Concentra te 1,000 mg capsule Take 1 capsule every day by oral route. 2018 active Not Available Not Available Not Avai lable fenofibra te 160 mg tablet TAKE 1 TABLET BY MOUTH DAILY active Not Available Not Available No t Available pregabali n 25 mg capsule TAKE 1 CAPSULE BY MOUTH THREE TIMES DAILY active Not Available Not Available No t Available Fish Oil 340 mg-1,000 mg capsule TAKE 2 CAPSULES BY MOUTH DAILY active Not Available Not Available No t Available Januvia 100 mg tablet TAKE 1 TABLET BY MOUTH DAILY 03/05 completed Not Available Not Available Not Available Lantus Solostar U-100 Insulin 100 unit/mL (3 mL) subcutane ous pen ADMINIST ER 15 UNITS UNDER THE SKIN EVERY NIGHT active Not Available Not Available No t Available Humalog KwikPen (U-100) Insulin 100 unit/mL subcutane ous INJECT UNDER THE SKIN TWICE DAILY PER SLIDING SCALE. NO MORE THAN 40 UNITS PER DAY active Not Available Not Available No t Available aloglipti n 25 mg tablet 08/26 completed Not Available Not Available Not Available TRUEplus Pen Needle 31 gauge x 12/24 USE DIRECTED WITH INSULIN active Not Available Not Available No t Available Fluzone Quad 2016-(P F) 60 mcg(15 mcgx4)/0. 5 mL intramusc ular syringe 02/09 completed Not Available Not Available Not Available Ozempic 0.25 mg or 0.5 mg (2 mg/1.5 mL) subcutane ous pen injector INJECT 0.25 MG SUBCUTAN EOUSLY ONCE A WEEK FOR 4 WEEKS THEN CALL FOR NEXT DOSE 03/05 completed Not Available Not Available Not Available OneTouch Ultra Blue Test Strip USE TO TEST FOUR TIMES DAILY active Not Available Not Available No t Available OneTouch Ultra2 Meter USE TO TEST FOUR TIMES DAILY active Not Available Not Available No t Available Ozempic 1 mg/dose (4 mg/3 mL) subcutane ous pen injector INJECT 1MG UNDER THE SKIN ONCE A WEEK. CALL IN ONCE MONTH FOR REFILL AND DOSE INCREASE . 03/05 completed Not Available Not Available Not Available omega-3 300 mg-dha 120 mg-epa 180 mg-fish oil 1,000 mg capsule TAKE 2 CAPSULES BY MOUTH DAILY active Not Available Not Available No t Available Ozempic 2 mg/dose (8 mg/3 mL) subcutane ous pen injector INJECT 2 MG UNDER THE SKIN ONE DAY A WEEK active Not Available Not Available No t Available Ozempic 0.25 mg or 0.5 mg (2 mg/3 mL) subcutane ous pen injector INJECT 0.5MG UNDER THE SKIN ONCE A WEEK 03/05 completed Not Available Not Available Not Available Vitals Date Recorded Body height Body mass index (BMI) Body weight Heart rate Body temperature Respiratory rate Oxygen saturation Oxygen saturation in Arterial blood by Pulse oximetry Systolic blood pressure Diastolic blood pressure Provider Name and Address Organization Details Last Updated DateTime 0 162.56 cm 38.3 kg/m2 023767. 1 g 86 /min 97.5 [degF] 16 /min 98 % 98 % 118 mm[Hg] 78 mm[Hg] Katya Fagan MA [facility] 0 16:13:06 Date Recorded Body height Body mass index (BMI) Body weight Heart rate Systolic blood pressure Diastolic blood pressure Provider Name and Address Organization Details Last Updated DateTime 3 162.56 cm 37.4 kg/m2 47851.1 4 g 97 /min 110 mm[Hg] 78 mm[Hg] Josephine Allison MA [facility] 3 11:54:22 Date Recorded Body height Body mass index (BMI) Body weight Respiratory rate Heart rate Systolic blood pressure Diastolic blood pressure Provider Name and Address Organization Details Last Updated DateTime 4 162.56 cm 32.5 kg/m2 71403.7 6 g 16 /min 86 /min 106 mm[Hg] 75 mm[Hg] Dara Ren [place] - [facility] 15:21:21 Social History Question Answer Notes LastModified by Organizat ion Details LastModified Time Tobacco Smoking Status Never Smoker Citlali Alas MA null, [place] - [facility] 02/05/2018 15:17:43 What Is Your Level Of Alcohol Consumption? None Information not available 02/09/2018 In The 14 Days Before Symptom Onset, Have You Had Close Contact With A Laboratory-confirm ed COVID-19 While That Case Was Ill? No [email or web address] Information n ot available 03/05/2024 In The 14 Days Before Symptom Onset, Have You Had Close Contact With A Person Who Is Under Investigation For COVID-19 While That Person Was Ill? No [email or web address] Information not available 03/05/2024 Have You Been To An Area Known To Be High Risk For COVID-19? No [email or web address] Information not available 03/05/2024 Which Illicit Or Recreational Drugs Have You Used? Denies Information not available 02/09/2018 What Was The Date Of Your Most Recent Tobacco Screening? 03/05/2024 Information not available 03/05/2024 Are You Sexually Active? Yes [email or web address] Information not available 03/05/2024 Do You Have Smoke And Carbon Monoxide Detectors In Your Home? Yes [email or web address] Information not available 03/05/2024 Are You Passively Exposed To Smoke? No Information no t available 03/05/2024 Do You Use Any Illicit Or Recreational Drugs? No [email or web address] Information not available 03/05/2024 Do You Or Have You Ever Used Any Other Forms Of Tobacco Or Nicotine? No [email or web address] Information not available 03/05/2024 Sex: Female Functional Status None recorded. Mental Status None recorded. Family History Relationship Description Onset Age of this Age Resolved Age Notes LastModified by Organization Details LastModified Time Mother Diabetes mellitus Type 1 [email or web address] Not available 2019 16:15:03 Mother Cerebrovascu lar accident 40 [email or web address] Not available 15:36:20 Mother Malignant tumor of ovary [email or web address] Not available 2019 16:15:15 Maternal Aunt Diabetes mellitus [email or web address] Not available 2019 16:15:22 Maternal Grandfather Diabetes mellitus [email or web address] Not available 2019 16:15:27 Maternal Uncle Diabetes mellitus [email or web address] Not available 2019 16:15:31 Medical History Condition Response Anxiety Disorder Y Diabetes Y Thyroid Problems Y Kidney or Bladder Problems Y Depression Y Gynecological History Statement/Question Response Flow Moderate Date of LMP 02/19/2024 On BCP's at Conception? N Menses Monthly Y Date of Last Pap Smear 12/20/2022 Duration of Flow (days) 4 Age at Menarche 11 Current Control Method None LMP Approximate Obstetrics History GPAL:G 0 P 0 0 0 0 Immunizations Vaccine Type Date Status Note Provider Nam e and Address Organization Details Recorded Time Influenza, split virus, quadrivalent, PF 8 completed Not Available [facility] 08/28/2019 02:35:59 Tdap 9 completed Not Available [facility] 08/28/2019 02:44:51 Hep B, adult 9 completed Not Available [facility] 08/28/2019 02:38:42 Hep B, adult 9 completed Not Available [facility] 08/28/2019 02:40:20 Influenza, split virus, quadrivalent, preservative 9 completed Not Available [facility] 08/28/2019 02:40:25 COVID-19, mRNA, LNP-S, PF, 100 mcg/0.5mL dose or 50 mcg/0.25mL dose 1 completed SANDRA [place], [place] - [facility] 10/17/2020 15:02:37 COVID-19, mRNA, LNP-S, PF, 100 mcg/0.5mL dose or 50 mcg/0.25mL dose 1 completed SANDRA [place]emp, [place] - [facility] 11/14/2020 15:48:10 Past Encounters Encounter ID Performer Location Encounter Start Date Encounter Closed Date Diagnosis/Indication Diagnosis SNOMED-CT Code Diagnosis ICD10 Code Diagnosis Note [id number] Celena Walters 14 IM 4 [facility] SHALINI [place] [id number] 02/05/2018 15:07:05 02/09/2018 10:56:01 Diabetes mellitus 58626150 E11.9 Since 21. Gluc 263 today. Out of meds for months. Used to see Endo. Has glucometer . She is supposed to be on Metformin 500mg BID, Glimepirid e 4mg daily and Aloglipiti n - we will resume all. Recheck labs. RTC 1mo with readings. Mood disorder 81615118 F 38 PHQ-9 = 20. MDD at 15yo, saw psych. Was on Zolof 150mg and Buspar 15mg. Celexa didn't help before. Mother has been having health issues and in/off hospital. Pt would like to switch meds. Declined counseling . We can try Effexor and Hydroxyzin e. Atypical psych med may help with Ffibromyal prudence. RTC 1mo. Primary fi bromyalgia syndrome 40330568 M79.7 Gabapentin gave her nightmare. Tizanidine not working. We will try Lyrica and Robaxin. Hypothyroidism 33285185 E03.9 Out of med for mo. Refill LT4 125mcg and check level. Gastroesop hageal reflux disease without esophagitis 186089639 K21.9 Stable on Omeprazole 20mg. Adult heal th examination 475508975 Z00.00 Pt to call Structural Engineering Technician for appointmen t. Hyperlipidemia 93905649 E78.5 Didn't try statin. Supposed to be on Fenofibrat e. Need fasting lipid. Family his tory of stroke 719999981 Z82.3 Mother with CVA at 40yo Body mass index 30+ - obesity 692399783 Z68.39 lifestyle [id number] MD Lázaro Rios 14 IM 4 [facility] [address] [place] [id number] 04/29/2018 15:34:10 04/30/2018 10:03:45 Hypothyroidism 79157438 E03.9 Out of med for mo. Refill LT4 125mcg and check level. Gastroesop hageal reflux disease without esophagitis 745542736 K21.9 Stable on Omeprazole 20mg. Diabetes mellitus 921519 09 E11.9 01/2018: Since 21. Gluc 263 today. Out of meds for months. Used to see Endo. Has glucometer . She is supposed to be on Metformin 500mg BID, Glimepirid e 4mg daily and Aloglipiti n - we will resume all. Recheck labs. RTC 1mo with readings. 04/2018: Gluc 410s. Urine dip showed Ketone of 15. Humulin R 5U, recheck 20-30 min later. Mood disorder 09792522 F 38 PHQ-9 = 20. MDD at 15yo, saw psych. Was on Zolof 150mg and Buspar 15mg. Celexa didn't help before. Mother has been having health issues and in/off hospital. Pt would like to switch meds. Declined counseling . We can try Effexor and Hydroxyzin e. Atypical psych med may help with Fibromyalg ia. RTC 1mo. Primary fi bromyalgia syndrome 61733959 M79.7 Gabapentin gave her nightmare. Tizanidine not working. We will try Lyrica and Robaxin. Hyperlipidemia 85525380 E78.5 Didn't try statin. Supposed to be on Fenofibrat e. Need fasting lipid. Family his tory of stroke 646170155 Z82.3 Mother with CVA at 40yo Body mass index 30+ - obesity 861264990 Z68.39 lifestyle Adult heal th examination 217985710 Z00.00 Pt to call Structural Engineering Technician for appointmen t. [id number] Celena Walters 14 IM 4 [facility] [address] [place] [address] 05/27/2018 15:35:45 05/28/2018 10:18:38 Hypothyroidism 81220760 E03.9 04/2018: Out of med for mo. Refill LT4 125mcg and check level. 05/2018: TSH wnl without med. Continue med and recheck level later. Hyperlipidemia 92063726 E78.5 04/2018: Didn't try statin. Supposed to be on Fenofibrat e. Need fasting lipid. 05/2018: On Fenofibrat e. TG was 2000, lipase wnl. Asymptomat ic. Recheck lipid, consider statin. Diabetes mellitus 401028 09 E11.9 01/2018: Since 21. Gluc 263 today. Out of meds for months. Used to see Endo. Has glucometer . She is supposed to be on Metformin 500mg BID, Glimepirid e 4mg daily and Aloglipiti n - we will resume all. Recheck labs. RTC 1mo with readings. 04/2018: Gluc 410s. Urine dip showed Ketone of 15. Humulin R 5U, recheck 20-30 min later. 05/2018: On Metformin 1000mg BID, glimepirid e 4mg, Alogliptin 25mg. A1C 10.7, proteinuri a. Home readings 150's. We will continue the same. RTC 2mo, Pt to f/u with her eye doc. Denies neuropathy . Proteinuria 27810045 R80 .9 DM. Refer to Nephrology . Adult heal th examination 344063885 Z00.00 Pt to call Structural Engineering Technician for appointmen t. Had pneumococc al shot and flu shot [id number] Celena Walters 13 IM [address] [facility] [address] [place] [address] 09/11/2018 14:27:21 09/14/2018 09:26:19 Gastroesophageal reflux disease without esophagitis [id number] K21.9 Stable on Omeprazole 20mg. Diabetes mellitus 363023 09 E11.9 01/2018: Since . Gluc 263 today. Out of meds for months. Used to see Endo. Has glucometer . She is supposed to be on Metformin 500mg BID, Glimepirid e 4mg daily and Aloglipiti n - we will resume all. Recheck labs. RTC 1mo with readings. 04/2018: Gluc 410s. Urine dip showed Ketone of 15. Humulin R 5U, recheck 20-30 min later. 05/2018: On Metformin 1000mg BID, glimepirid e 4mg, Alogliptin 25mg. A1C 10.7, proteinuri a. Home readings 150's. We will continue the same. RTC 2mo, Pt to f/u with her eye doc. Denies neuropathy . 08/2018: Home readings < 200s. Recheck. Pending eye doctor. Cotmarion meds. addendum: 8.8 < 10.7 - better, we will add Lantus 5 U [facility] Hypothyroidism 93245411 E03.9 04/2018: Out of med for mo. Refill LT4 125mcg and check level. 05/2018: TSH wnl without med. Continue med and recheck level later. 08/2018: pt resumed med 05/2019, recheck level. 08/2018: doing well on 125mcg, TSH wnl. Mood disorder 82091416 F 38 PHQ-9 = 20. MDD at 15yo, saw psych. Was on Zolof 150mg and Buspar 15mg. Celexa didn't help before. Mother has been having health issues and in/off hospital. Pt would like to switch meds. Declined counseling . We can try Effexor and Hydroxyzin e. Atypical psych med may help with Fibromyalg ia. RTC 1mo. 08/2018: Pt feels Effexor is not working, fatigue, sleeping a lot. Pt to wean off Effexor in 1-2 weeks. Then start Fluoxetine . RTC 3mo Hyperlipidemia 65354539 E78.5 04/2018: Didn't try statin. Supposed to be on Fenofibrat e. Need fasting lipid. 05/2018: On Fenofibrat e. TG was 2000, lipase wnl. Asymptomat ic. Recheck lipid, consider statin. 08/2018: Check level. On fenofibrat e. Addendum: T3-5 / TG 1059 / LDL NA - much better, add statin [id number] Celena Walters 14 IM [address] [facility] [address] [place] [address] 12/09/2018 14:34:25 12/10/2018 10:43:38 Hypothyroidism 64506851 E03.9 04/2018: Out of med for mo. Refill LT4 125mcg and check level. 05/2018: TSH wnl without med. Continue med and recheck level later. 08/2018: pt resumed med 05/2019, recheck level. 08/2018: doing well on 125mcg, TSH wnl. Diabetes mellitus 441694 09 E11.9 01/2018: Since . Gluc 263 today. Out of meds for months. Used to see Endo. Has glucometer . She is supposed to be on Metformin 500mg BID, Glimepirid e 4mg daily and Aloglipiti n - we will resume all. Recheck labs. RTC 1mo with readings. 04/2018: Gluc 410s. Urine dip showed Ketone of 15. Humulin R 5U, recheck 20-30 min later. 05/2018: On Metformin 1000mg BID, glimepirid e 4mg, Alogliptin 25mg. A1C 10.7, proteinuri a. Home readings 150's. We will continue the same. RTC 2mo, Pt to f/u with her eye doc. Denies neuropathy . 08/2018: Home readings < 200s. Recheck. Pending eye doctor. continue meds. addendum: 8.8 < 10.7 - better, we will add Lantus 5 U [facility] 12/2018: Has appointmen t with eye doc. Using Lantus 5U [facility]. Her night time glucose was < 100. A1C today. Continue Basaglar, Metformin, Glimeperid ie, Alogliptin . Check morning glucose and some premeals. RTC 3mo. Primary fi bromyalgia syndrome 02400845 M79.7 Gabapentin gave her nightmare. Tizanidine not working. We will try Lyrica and Robaxin. 11/2018: Stable on Lyrica and Robaxin. Adult heal th examination 954956504 Z00.00 Pt to call Structural Engineering Technician for appointmen t. Had pneumococc al shot and flu shot Hyperlipidemia 68086281 E78.5 04/2018: Didn't try statin. Supposed to be on Fenofibrat e. Need fasting lipid. 05/2018: On Fenofibrat e. TG was 2000, lipase wnl. Asymptomat ic. Recheck lipid, consider statin. 08/2018: Check level. On fenofibrat e. Addendum: T3-5 / TG 1059 / LDL NA - much better, add statin. 12/2018: Tolerating Fenofibrat e and Lipitor. Recheck level. Proteinuria 73187323 R80 .9 DM. Refer to Nephrology . 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 Start Losartan 25mg and stop PPI. US kidney, labs. Hold of kidney biopsy. RTC 4 weeks. Gastroesop hageal reflux disease without esophagitis 964357428 K21.9 Stable on Omeprazole 20mg. 12/2018: Nephro advised to stop PPI and use Ranitidine . Mood disorder 29998006 F 38 PHQ-9 = 20. MDD at 15yo, saw psych. Was on Zolof 150mg and Buspar 15mg. Celexa didn't help before. Mother has been having health issues and in/off hospital. Pt would like to switch meds. Declined counseling . We can try Effexor and Hydroxyzin e. Atypical psych med may help with Fibromyalg ia. RTC 1mo. 08/2018: Pt feels Effexor is not working, fatigue, sleeping a lot. Pt to wean off Effexor in 1-2 weeks. Then start Fluoxetine . RTC 3mo 12/2018: PHQ 9 = 5. Doing well on Fluoxetine . [id number] Celena Walters 14 IM [address] [facility] [address] [place] [address] 04/21/2019 15:50:33 05/10/2019 08:31:01 Gastroesophageal reflux disease without esophagitis 454966579 K21.9 12/2018: Nephro advised to stop PPI and use Ranitidine . Diabetes mellitus 172765 09 E11.9 No retinopath y. 01/2018: Since 20. Gluc 263 today. Out of meds for months. Used to see Endo. Has glucometer . She is supposed to be on Metformin 500mg BID, Glimepirid e 4mg daily and Aloglipiti n - we will resume all. Recheck labs. RTC 1mo with readings. 04/2018: Gluc 410s. Urine dip showed Ketone of 15. Humulin R 5U, recheck 20-30 min later. 05/2018: On Metformin 1000mg BID, glimepirid e 4mg, Alogliptin 25mg. A1C 10.7, proteinuri a. Home readings 150's. We will continue the same. RTC 2mo, Pt to f/u with her eye doc. Denies neuropathy . 08/2018: Home readings < 200s. Recheck. Pending eye doctor. continue meds. Addendum: 8.8 < 10.7 - better, we will add Lantus 5 U [facility] 12/2018: Has appointmen t with eye doc. Using Lantus 5U Q[facility]. Her night time glucose was < 100. A1C today. Continue Basaglar, Metformin, Glimeperid e, Alogliptin . Check morning glucose and some premeals. RTC 3mo. 04/2019: Saw eye doctor. No Hypoglycem ia on current regimen. Macroalbum inuria - better after adding Losartan. Continue Basaglar 5U Q[facility], Metformin, Glimeperid e, Alogliptin . Labs today. Mood disorder 91282971 F 38 PHQ-9 = 20. MDD at 15yo, saw psych. Was on Zolof 150mg and Buspar 15mg. Celexa didn't help before. Mother has been having health issues and in/off hospital. Pt would like to switch meds. Declined counseling . We can try Effexor and Hydroxyzin e. Atypical psych med may help with Fibromyalg ia. RTC 1mo. 08/2018: Pt feels Effexor is not working, fatigue, sleeping a lot. Pt to wean off Effexor in 1-2 weeks. Then start Fluoxetine . RTC 3mo 12/2018: PHQ 9 = 5. Doing well on Fluoxetine . 04/2019: Doing well on Fluoxetine . Hypothyroidism 75850285 E03.9 04/2018: Out of med for mo. Refill LT4 125mcg and check level. 05/2018: TSH wnl without med. Continue med and recheck level later. 08/2018: pt resumed med 05/2019, recheck level. 08/2018: doing well on 125mcg, TSH wnl. Hyperlipidemia 59588548 E78.5 04/2018: Didn't try statin. Supposed to be on Fenofibrat e. Need fasting lipid. 05/2018: On Fenofibrat e. TG was 2000, lipase wnl. Asymptomat ic. Recheck lipid, consider statin. 08/2018: Check level. On fenofibrat e. Addendum: T3-5 / TG 1059 / LDL NA - much better, add statin. 12/2018: Tolerating Fenofibrat e and Lipitor. Recheck level. 04/2019: not on fish oil yet. Will do a fasting lipid this time. Continue lipitor 20mg and fenofibrat e. 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 Followed by Nephro 04/2019: CKD 1 2/2 to diabetic nephropath y with macroalbum inuria - better after adding Losartan. DM2 - improving. Hypothyroi dism, Fibromyalg ia, HLD, Depression , HypoMg, Mild Vit D def, Hep B non immune. - Avoid NSAIDs, Vit D 1000U daily. Avoid Ca and Tums. Mg Ox 400mg daily. Losartan. Avoid PPI, use H@ pinky. Kidney US wnl. Serology TEOFILO/RF all neg. Likely cause of proteinuri a is diabetes. Hold off kidney biopsy at this point. RTC 6mo [id number] Beatrice Cid RN [place] 14 IM [address] [facility] [place] [address] 04/27/2019 15:17:50 05/10/2019 19:51:00 Adult health examination 560741008 Z00.00 Pt to call Structural Engineering Technician for appointmen t. Had pneumococc al shot and flu shot [id number] Celena Chavez [place] 14 IM [address] [facility] [address] 05/28/2019 14:19:32 06/07/2019 09:18:55 Active or passive immunization 471647941 Z23 Administra tion of influenza vaccine 47250801 Z23 [id number] SANDRA Mohamud 14 OB [address] [facility] [place] [address] 08/31/2019 15:41:44 09/01/2019 10:16:23 Gynecologic examination 54937033 Z01.419 1. Counseled regarding prevention of STD's , condom use and prevention . 2. Counseled regarding contracept daniel options, risk factors and side effects. 3. Advised avoidance of tobacco, alcohol, and drugs . 4. Counseled regarding folic acid supplement ation, calcium needs and prevention of osteoporos is . 5. BSE reviewed and recommende d. 6. Follow up in one year or sooner if needed. [facility] ion care management 241172277 Z30.9 1. All forms of control reviewed with patient including risks, benefits, pros and cons. 2. Patient verbalized understand ing of all forms and that abstinence is the only true form of control. 3. Condom use reviewed as well and prevention and transmissi on of STD's. Pt is not currently sexually active. [id number] CHAYO Wynn 14 IM [address] [facility] [place] [address] 10/17/2020 10:44:54 10/19/2020 16:15:55 Administration of SARS-CoV-2 antigen vaccine 941556826 Z23 [id number] CHAYO Wynn 14 IM [address] [facility] [place] [address] 11/14/2020 14:28:22 11/15/2020 10:25:30 Administration of SARS-CoV-2 antigen vaccine 723092603 Z23 [id number] [facility] [address] [facility] [place] [address] 12/20/2022 11:35:16 12/25/2022 09:20:28 Gynecologic examination 93549379 Z01.419 1. Counseled regarding prevention of STD's , condom use and prevention . 2. Counseled regarding contracept daniel options, risk factors and side effects. 3. Advised avoidance of tobacco, alcohol, and drugs . 4. Counseled regarding folic acid supplement ation, calcium needs and prevention of osteoporos is . 5. BSE reviewed and recommende d. 6. Follow up in one year or sooner if needed. [id number] THEE BarajasCHEYENNE [place] 14 OB [address] [facility] [place] [address] 03/05/2024 15:04:57 03/08/2024 08:14:48 Gynecologic examination 04823213 Z01.419 1. Counseled regarding prevention of STD's , condom use and prevention . 2. Counseled regarding contracept daniel options, risk factors and side effects. 3. Advised avoidance of tobacco, alcohol, and drugs . 4. Counseled regarding folic acid supplement ation, calcium needs and prevention of osteoporos is . 5. BSE reviewed and recommende d. 6. Follow up in one year or sooner if needed. Obesity 057902642 E66.8 Pain of breast 61690845 N64.4 Will refer per pt request. Pt v/u. Health Concerns Section Related Observation LastModified by Organization Detai ls LastModified Time None Recorded Concern Status LastModified by Organization Details LastModified Time None Recorded Advance Directives Directive None Recorded Payers Encounter Date Sequence Insurance Name Policy Number Policy Walters Covered Member ID Walters Member ID Guarantor Name 08/31/2019 1 [facility] (MEDICAID HM) [id number] Katy Fabian [id number] Katy Fabian 10/17/2020 1 [facility] (MEDICAID HMO) [id number] Katy Fabian [id number] Katy Fabian 11/14/2020 1 [facility] (MEDICAID HMO) [id number] Katy Fabian [id number] Katy Fabian 12/20/2022 1 [facility] (MEDICAID HMO) [id number] Katy Fabian [id number] Katy Fabian 03/05/2024 1 [facility] (MEDICAID HMO) [id number] Katy Fabian [id number] Katy Fabian Notes Date Note Type Note Provider Name and Address Organization Details Recorded Time 08/31/2019 text/html Annual GYNReport ed bypatient.History: no gynecologic complaints Menstrual cycle:Severe dysmenorrhea Urinary symptoms:No hematuria; No incontinence Vulva:No genital lesion Vagina:Normal vaginal discharge Breast:No breast pain; No breast lump; No nipple discharge Current Contraception:Not sexually active Menopausal Symptoms:No menopausal symptoms; Normal vaginal lubrication Psychological symptoms:No depression; No anxiety; No PMDD Preventive measures:Encourage self breast examination; Encourage regular exercise; Encourage no tobacco use; Encourage regular mammograms starting age 40; Followed with Q3 year pap smear and high risk HPV typing here for annual, doing well with no complaints.pt states this is her first pap, never has been sexually active, declines need for control or std testing.states cycles are monthly, regular, cramping can be intense but states she manages with otc meds Katya Fagan MA [facility] 08/31/2019 16:44:56 12/20/2022 text/html Annual GYNReport ed bypatient.History: no gynecologic complaints Menstrual cycle:Severe dysmenorrhea Urinary symptoms:No hematuria; No incontinence Vulva:No genital lesion Vagina:Normal vaginal discharge Breast:No breast pain; No breast lump; No nipple discharge Current Contraception:Not sexually active Menopausal Symptoms:No menopausal symptoms; Normal vaginal lubrication Psychological symptoms:No depression; No anxiety; No PMDD Preventive measures:Encourage self breast examination; Encourage regular exercise; Encourage no tobacco use; Encourage regular mammograms starting age 40; Followed with Q3 year pap smear and high risk HPV typing 27 yo here for annual, doing well with no complaints.- hx obesity, dm2, high cholesterol, hypothyroidism, fibromyalgia- last pap ascus 08/31/19tates cycles are monthly, regular, cramping can be intense but states she manages with otc meds- pcp Mario Alberto ordered breast mri for left breast skin changes NÉSTOR Barajas Attn: Accounting[address] , [place], [address], [facility] 12/20/2022 12:02:48 03/05/2024 text/html Annual GYNReport ed bypatient.History: no gynecologic complaints Menstrual cycle:Normal menses Urinary symptoms:No hematuria; No incontinence Vulva:No genital lesion Vagina:Normal vaginal discharge Breast:No breast pain; No breast lump; No nipple discharge Current Contraception:Not sexually active Menopausal Symptoms:No menopausal symptoms; Normal vaginal lubrication Psychological symptoms:No depression; No anxiety; No PMDD Preventive measures:Encourage self breast examination; Encourage regular exercise; Encourage no tobacco use; Encourage regular mammograms starting age 40; Followed with Q3 year pap smear and high risk HPV typing 28 yo here for annual, doing well- would like referral to breast specialist for breast numbness, pcp was going to order but pcp just left job to go to wound care- hx obesity, dm2, high cholesterol, hypothyroidism, fibromyalgia-pap ascus 08/31/19- pap ascus 12/20/22states cycles are monthly, regular, cramping can be intense but states she manages with otc meds- pcp Mario Alberto ordered breast mri for left breast skin changes 2022 NÉSTOR Barajas Attn: Accounting[address] [place], [address], [facility] 03/05/2024 15:46:26 OBGyn Episode No OBEpisode recorded.
--- OUTSIDE RECORDS SUMMARY | 2024-10-05 15:50 | XMS_ITS | Encounter Summary ---
Author Organization [facility] Address [address] [facility] [place] [address] Phone Care Team Providers Care Senior Cost Analyst Name Role Phone Fco Llanes MD Primary Care Provider [phone] Uche Haley MD Unavailable [phone] Della Whaley DO Primary Care Provider [phone] Reason for Visit * Reason Comments Medication Refill Encounter Details Date Type Department Care Team (Late st Contact Info) Description 07/09/2022 Refill [facility] - Family Medicine [facility] [address] [place] [id number] cFo Llanes MD [address] [place] [address] Medication Refill Social History Tobacco Use Types [...] Sex Assigned at Female 07/10/2023 4:42 AM PLUMBING DRAFTER Legal Sex Female 3:32 PM PLUMBING DRAFTER Gender Identity Female 07/10/2023 4:42 AM PLUMBING DRAFTER Sexual Orientation Straight 07/10/2023 4: 42 AM PLUMBING DRAFTER documented as of this encounter Miscellaneous Notes * Telephone Encounter - Judy Vidal RN - 07/09/2022 9:00 AM PLUMBING DRAFTER PDMP 05/23/2022 #30 Medication failed the protocol, provider to review and approve the medication order if appropriate. Requested Prescriptions Pending Prescriptions Disp Refills levothyroxine (SYNTHROID) 125 MCG Tablet [Pharmacy Med Name: LEVOTHYROXINE 0.125MG (125MCG) TAB] 90Tablet 1 Sig: TAKE 1 TABLET BY MOUTH DAILY Thyroid Hormones Protocol Passed - 07/09/2022 1:08 AM Passed - No test in the past 12 months or most recent test was negative Passed - Visit with relevant provider in past 12 months or upcoming 90 days Recent Visits Date Type Provider Dept 05/17/22 Office Visit [facility] [place] 11/16/21 Office Visit Fco Llanes MD [facility] [place] Showing recent visits within past 365 days and meeting all other requirements Future Appointments Date Type Provider Dept 09/20/22 Appointment Fco Llanes MD [facility] Showing future appointments within next 90 days and meeting all other requirements Passed - No active on record Passed - Normal TSH in past 12 months TSH Date Value Ref Range Status 05/17/2022 2.430 0.270 - 4.200 mIU/L Final zolpidem (AMBIEN) 10 MG Tablet [Pharmacy Med Name: ZOLPIDEM 10MG TABLETS] 30 Tablet Sig: TAKE 1 TABLET BY MOUTH EVERY NIGHT NEEDED FOR SLEEP There is no refill protocol information for this order BING DRAFTER documented in this encounter Plan of Treatment Upcoming Encounters Date Type Department Care Team (Late st Contact Info) Description 10/11/2024 1:15 PM PLUMBING DRAFTER [facility] Visit [facility] - [place] [address] [place] [address] Della Whaley DO [address] [facility] [address] [place] [address] documented as of this encounter Visit Diagnoses Diagnosis Insomnia, unspecified type documented in this encounter Additional Health Concerns Assessment Noted Time PHQ-9 Depression Total Score: 5 11/17/19 22 9:00 AM CDT documented as of this encounter Care Teams Senior Cost Analyst Relationship Specialty Start Date End Date Fco Llanes MD PCP - General Family Medicine 07/14/20 01/28/24 Della Whaley DO [address] [facility] [address] [place] [address] PCP - General Family Medicine 01/30/24 [facility] Haley MD [address] [address] [place] [address] Consulting Physician General Surgery 02/21/23 documented as of this encounter
--- OUTSIDE RECORDS SUMMARY | 2024-10-05 15:50 | XMS_ITS | Encounter Summary ---
Author Organization [facility] Address [address] [facility] [place] [address] Phone Care Team Providers Care Paper Cone Machine Tender Name Role Phone Uche Haley MD Unavailable [phone] Della Whaley DO Primary Care Provider [phone] Reason for Visit * Reason Comments Medication Refill Encounter Details Date Type Department Care Team (Late st Contact Info) Description 05/11/2024 Refill [facility] [address] [place] [address] Lubna Duran PAC [address] [place] [address] Medication Refill Social History Tobacco Use Types [...] Sex Assigned at Female 07/10/2023 4:42 AM EDUCATIONAL ASSISTANT TEACHER Legal Sex Female 3:32 PM EDUCATIONAL ASSISTANT TEACHER Gender Identity Female 07/10/2023 4:42 AM EDUCATIONAL ASSISTANT TEACHER Sexual Orientation Straight 07/10/2023 4: 42 AM EDUCATIONAL ASSISTANT TEACHER documented as of this encounter Miscellaneous Notes * Telephone Encounter - Beatrice Cid RN - 05/11/2024 4:20 PM CDT Images from the original note were not included. Insulin Glargine Dispensed Days Supply Quantity Provider Pharmacy [facility] 3ML 05/05/2024 88 15 mL Fritcher, Marielle, PAC [facility]... [facility] 3ML 02/07/2024 88 15 mL Fritcher, Marielle, PAC [facility]. documented in this encounter Plan of Treatment Upcoming Encounters Date Type Department Care Team (Late st Contact Info) Description 10/11/2024 1:15 PM EDUCATIONAL ASSISTANT TEACHER Office Visit [facility] - Family Medicine [facility] [address] [place] [address] Della Whaley DO 2 [facility] [address] [address] documented as of this encounter Visit Diagnoses Diagnosis Type 2 diabetes mellitus without complication, without long-term current use of insulin (HCC) documented in this encounter Additional Health Concerns Assessment Noted Time PHQ-9 Depression Total Score: 5 11/17/19 22 9:00 AM CDT documented as of this encounter Care Teams Paper Cone Machine Tender Relationship Specialty Start Date End Date Della Whaley DO 2 [facility] [place] [facility] [address] [place] [address] PCP - General Family Medicine 01/30/24 Uche Haley MD [address] [address] Consulting Physician General Surgery 02/21/23 documented as of this encounter
--- OUTSIDE RECORDS SUMMARY | 2024-10-05 15:50 | XMS_ITS | Encounter Summary ---
Author Organization [facility] Address [address] [facility] [place] [address] Phone Care Team Providers Care Laboratory Technologist Name Role Phone Fco Llanes MD Primary Care Provider [phone] Uche Haley MD Unavailable [phone] Della Whaley DO Primary Care Provider [phone] Reason for Visit * Reason Comments Medication Refill Encounter Details Date Type Department Care Team (Late st Contact Info) Description 08/28/2022 Refill [facility] Medical Group - Family Medicine [facility] #2 [place] [address] Fco Llanes MD #1 [place] [address] Medication Refill Social History Tobacco Use Types [...] Sex Assigned at Female 07/10/2023 4:42 AM HEALTHCARE TRANSLATOR Legal Sex Female 3:32 PM HEALTHCARE TRANSLATOR Gender Identity Female 07/10/2023 4:42 AM HEALTHCARE TRANSLATOR Sexual Orientation Straight 07/10/2023 4: 42 AM HEALTHCARE TRANSLATOR documented as of this encounter Miscellaneous Notes * Telephone Encounter - Piedad Caceres RN - 08/28/2022 9:34 AM CST Medication failed the protocol, provider to review and approve the medication order if appropriate. Requested Prescriptions Pending Prescriptions Disp Refills cyclobenzaprine (FLEXERIL) 10 MG Tablet [Pharmacy Med Name: CYCLOBENZAPRINE 10MG TABLETS] 42 Tablet0 Sig: TAKE 1 TABLET BY MOUTH THREE TIMES DAILY FOR UP TO 14 DAYS NEEDED FOR MUSCLE SPASMS Not Delegated - Muscle Relaxants Protocol Failed - 08/28/2022 7:56 AM Failed - This refill cannot be delegated Passed - Visit with relevant provider in past 12 months or upcoming 90 days Recent Visits Date Type Provider Dept 05/17/22 Office Visit Fco Llanes MD [facility] 11/16/21 Office Visit Fco Llanes MD [facility] [place] Showing recent visits within past 365 days and meeting all other requirements Future Appointments Date Type Provider Dept 09/20/22 Appointment Fco Llanes MD [facility] Showing future appointments within next 90 days and meeting all other requirements THCARE TRANSLATOR documented in this encounter Plan of Treatment Upcoming Encounters Date Type Department Care Team (Late st Contact Info) Description 10/11/2024 1:15 PM HEALTHCARE TRANSLATOR Office Visit [facility] Medical Group - Family Medicine - [place] [address] [place] [address] Della Whaley, DO [address] [facility] [facility] [address] [place], [place] [address], [place] [address] documented as of this encounter Visit Diagnoses Diagnosis Chronic tension-type headache, not intractable Chronic tension type headache documented in this encounter Additional Health Concerns Assessment Noted Time PHQ-9 Depression Total Score: 5 11/17/19 22 9:00 AM CDT documented as of this encounter Care Teams Laboratory Technologist Relationship Specialty Start Date End Date Fco Llanes MD PCP - General Family Medicine 07/14/20 01/28/24 Della Whaley DO [address] [facility] [address] [facility] [facility] [address] [place], [place] [id number] PCP - General Family Medicine 01/30/24 Uche Haley MD [address] [address] Consulting Physician General Surgery 02/21/23 documented as of this encounter
--- OUTSIDE RECORDS SUMMARY | 2024-10-05 15:50 | XMS_ITS | Encounter Summary ---
Author Organization [facility] Address [address] [facility] [place] [address] Phone Care Team Providers Care Sfdc Developer Name Role Phone Fco Llanes MD Primary Care Provider [phone] Uche Haley MD Unavailable [phone] Della Whaley DO Primary Care Provider [phone] Reason for Visit * Reason Comments Medication Refill Encounter Details Date Type Department Care Team (Late st Contact Info) Description 08/20/[address] [facility] Medical Group - Family Medicine [facility] [address]2 [place] [address] Fco Llanes MD [address]1 [place] [address] Medication Refill Social History Tobacco Use Types [...] Sex Assigned at Female 07/10/2023 4:42 AM MARBLE INSTALLATION HELPER Legal Sex Female 3:32 PM MARBLE INSTALLATION HELPER Gender Identity Female 07/10/2023 4:42 AM MARBLE INSTALLATION HELPER Sexual Orientation Straight 07/10/2023 4: 42 AM MARBLE INSTALLATION HELPER documented as of this encounter Plan of Treatment Upcoming Encounters Date Type Department Care Team (Late st Contact Info) Description 10/11/2024 1:15 PM MARBLE INSTALLATION HELPER Office Visit [facility] [address] [place] [address] Della Whaley DO [address] [facility] [address] [place] [address] documented as of this encounter Visit Diagnoses Diagnosis Type 2 diabetes mellitus without complication, without long-term current use of insulin (HCC) documented in this encounter Additional Health Concerns Assessment Noted Time PHQ-9 Depression Total Score: 5 11/17/19 22 9:00 AM CDT documented as of this encounter Care Teams Sfdc Developer Relationship Specialty Start Date End Date Fco Llanes MD PCP - General Family Medicine 07/14/20 01/28/24 Della Whaley DO 2 [address] [facility] [address] [place] [address] PCP - General Family Medicine 01/30/24 Uche Haley MD [address] [address] Consulting Physician General Surgery 02/21/23 documented as of this encounter
--- OUTSIDE RECORDS SUMMARY | 2024-10-05 15:50 | XMS_ITS | Encounter Summary ---
Author Organization [facility] Address [address] [facility] [place] [address] Phone Care Team Providers Care Early Childhood Educator Aide Name Role Phone Fco Llanes MD Primary Care Provider Uche Haley MD Unavailable [phone] Della Whaley DO Primary Care Provider [phone] Reason for Visit * Reason Comments Medication Refill Encounter Details Date Type Department Care Team (Late st Contact Info) Description 08/11/2022 Refill [facility] Medical Group - Family Medicine [facility] #2 [place] [address] Fco Llanes MD [address]1 [place] [address] Medication Refill Social History Tobacco Use Types [...] Sex Assigned at Female 07/10/2023 4:42 AM PRODUCTION PAINTER Legal Sex Female 3:32 PM PRODUCTION PAINTER Gender Identity Female 07/10/2023 4:42 AM PRODUCTION PAINTER Sexual Orientation Straight 07/10/2023 4: 42 AM PRODUCTION PAINTER documented as of this encounter Miscellaneous Notes * Telephone Encounter - Beatrice Cid RN - 08/13/2022 11:37 AM CST Medication failed the protocol, provider to review and approve the medication order if appropriate. Requested Prescriptions Pending Prescriptions Disp Refills amitriptyline (ELAVIL) 25 MG Tablet [Pharmacy Med Name: AMITRIPTYLINE 25MG TABLETS] 90 Tablet 1 Sig: TAKE 1 TABLET BY MOUTH EVERY NIGHT Not Delegated - Tricyclic Agents Protocol Failed - 08/11/2022 4:39 PM Failed - This refill cannot be delegated Passed - Visit with relevant provider in past 12 months or upcoming 90 days Recent Visits Date Type Provider Dept 05/17/22 Office Visit Fco Llanes MD [facility] [place] 11/16/21 Office Visit Fco Llanes MD [facility] [place] Showing recent visits within past 365 days and meeting all other requirements Future Appointments Date Type Provider Dept 09/20/22 Appointment Fco Llanes MD [facility] [place] Showing future appointments within next 90 days and meeting all other requirements UCTION PAINTER documented in this encounter Plan of Treatment Upcoming Encounters Date Type Department Care Team (Late st Contact Info) Description 10/11/2024 1:15 PM PRODUCTION PAINTER Office Visit [facility] Medical Group - Family Medicine - [place] [address] [place] [address] Della Whaley, DO 2 [facility] [address]NE BUENO [facility]. [address] [place] [address] documented as of this encounter Visit Diagnoses Diagnosis Chronic tension-type headache, not intractable Chronic tension type headache documented in this encounter Additional Health Concerns Assessment Noted Time PHQ-9 Depression Total Score: 5 11/17/19 22 9:00 AM CDT documented as of this encounter Care Teams Early Childhood Educator Aide Relationship Specialty Start Date End Date Fco Llanes MD PCP - General Family Medicine 07/14/20 01/28/24 Della Whaley DO 2 [facility] [address] [place] [address] PCP - General Family Medicine 01/30/24 Uche Haley MD #2 [facility] [address] [place] [address] Consulting Physician General Surgery 02/21/23 documented as of this encounter
--- OUTSIDE RECORDS SUMMARY | 2024-10-05 15:50 | XMS_ITS | Encounter Summary ---
Author Organization [facility] Address [address] [facility] [place] [address] Phone Care Team Providers Care Corduroy Cutter Operator Name Role Phone Fco Llanes MD Primary Care Provider [phone] Uche Haley MD Unavailable [phone] Della Whaley DO Primary Care Provider [phone] Reason for Visit * Reason Comments Medication Refill Encounter Details Date Type Department Care Team (Late st Contact Info) Description 12/25/2022 Refill [facility] Medical Group - Family Medicine [facility] #2 [place] [phone] Fco Llanes MD #1 [place] [address] Medication Refill Social History Tobacco Use Types [...] Sex Assigned at Female 07/10/2023 4:[address] COUNSELLOR Legal Sex Female 3:[address] COUNSELLOR Gender Identity Female 07/10/2023 4:[address] COUNSELLOR Sexual Orientation Straight 07/10/2023 4: [address] COUNSELLOR documented as of this encounter Miscellaneous Notes * Telephone Encounter - Beatrice Cid RN - 12/26/2022 11:27 AM CDT Medication warning Per nursing clinical judgement, provider to review and approve the medication(s) order(s) if appropriate. Requested Prescriptions Pending Prescriptions Disp Refills sertraline (ZOLOFT) 50 MG Tablet [Pharmacy Med Name: SERTRALINE 50MG TABLETS] 30 Tablet 2 Sig: TAKE 1 TABLET BY MOUTH DAILY SSRI (6 Month Refill Only) Protocol Passed - 12/25/2022 7:48 PM Passed - No test in the past 12 months or most recent test was negative Passed - No active on record Passed - Visit with relevant provider in past 6 months or upcoming 90 days Recent Visits Date Type Provider Dept 09/20/22 Office Visit Fco Llanes MD [facility] [place] Showing recent visits within past 182 days and meeting all other requirements Future Appointments Date Type Provider Dept 01/24/23 Appointment Fco Llanes MD [facility] [place] Showing future appointments within next 90 [...] st Contact Info) Description 10/11/2024 1:[address] COUNSELLOR Office Visit [facility] Medical Group - Family Medicine - [place] [address] [place] [address] Della Whaley, DO 2 [facility] EVELYNE BUENO, [facility]. [address] [place] [address] documented as of this encounter Visit Diagnoses Diagnosis Major depressive episode Major depressive disorder, single episode, unspecified documented in this encounter Additional Health Concerns Assessment Noted Time PHQ-9 Depression Total Score: 5 11/17/19 22 9:00 AM CDT documented as of this encounter Care Teams Corduroy Cutter Operator Relationship Specialty Start Date End Date Fco Llanes MD PCP - General Family Medicine 07/14/20 01/28/24 Della Whaley DO [address] [facility] [address] [place] [address] PCP - General Family Medicine 01/30/24 [facility] H[facility] MD [facility] [address] [place] [address] Consulting Physician General Surgery 02/21/23 documented as of this encounter
--- OUTSIDE RECORDS SUMMARY | 2024-10-05 15:50 | XMS_ITS | Encounter Summary ---
Author Organization [facility] Address [address] [facility] [place] [address] Phone Care Team Providers Care Geriatric Physician Name Role Phone Fco Llanes MD Primary Care Provider Uche Haley MD Unavailable [phone] Della Whaley DO Primary Care Provider [phone] Reason for Visit * Reason Comments Medication Refill Encounter Details Date Type Department Care Team (Late st Contact Info) Description 10/12/2022 Refill [facility] Medical [facility] - Family Medicine [facility] #2 [place] [address] Fco Llanes MD #1 [place] [address] Medication Refill Social History Tobacco Use Types [...] Sex Assigned at Female 07/10/2023 4:42 AM SPINNING MACHINE OPERATOR Legal Sex Female 3:32 PM SPINNING MACHINE OPERATOR Gender Identity Female 07/10/2023 4:42 AM SPINNING MACHINE OPERATOR Sexual Orientation Straight 07/10/2023 4: 42 AM SPINNING MACHINE OPERATOR COVID-19 Exposure Response Date Recorded In the last 10 days, have yo u been in contact with someone who was confirmed or suspected to have Coronavirus/COVID-19? No / Unsure 10/06/2022 1:41 PM SPINNING MACHINE OPERATOR documented as of this encounter Miscellaneous Notes * Telephone Encounter - Judy Vidal RN - 10/14/2022 8:18 AM SPINNING MACHINE OPERATOR PDMP 08/29/22 #42 Medication failed the protocol, provider to review and approve the medication order if appropriate. Requested Prescriptions Pending Prescriptions Disp Refills cyclobenzaprine (FLEXERIL) 10 MG Tablet [Pharmacy Med Name: CYCLOBENZAPRINE 10MG TABLETS] 42 Tablet0 Sig: TAKE 1 TABLET BY MOUTH THREE TIMES DAILY FOR UP TO 14 DAYS NEEDED FOR MUSCLE SPASMS Not Delegated - Muscle Relaxants Protocol Failed - 10/12/2022 1:48 AM Failed - This refill cannot be delegated Passed - Visit with relevant provider in past 12 months or upcoming 90 days Recent Visits Date Type Provider Dept 09/20/22 [facility]/17/22 Office Visit Fco Llanes MD [facility] 11/16/21 Office Visit Fco Llanes MD [facility] Showing recent visits within past 365 days and meeting all other requirements Future Appointments No visits were found meeting these conditions. Showing future appointments within next 90 days and meeting all other requirements NING MACHINE OPERATOR documented in this encounter Plan of Treatment Upcoming Encounters Date Type Department Care Team (Late st Contact Info) Description 10/11/2024 1:15 PM SPINNING MACHINE OPERATOR Office Visit [facility] Medical Group - Family Medicine - [place] [address] [place] [address] Della Whaley, DO [address] [address] documented as of this encounter Visit Diagnoses Diagnosis Chronic tension-type headache, not intractable Chronic tension type headache documented in this encounter Additional Health Concerns Assessment Noted Time PHQ-9 Depression Total Score: 5 11/17/19 22 9:00 AM CDT documented as of this encounter Care Teams Geriatric Physician Relationship Specialty Start Date End Date Fco Llanes MD PCP - General Family Medicine 07/14/20 01/28/24 Della hWaley DO [address] [facility] [facility] [address] [place] [address] PCP - General Family Medicine 01/30/24 Uche Haley MD #[address] [facility] [address] [place] [address] Consulting Physician General Surgery 02/21/23 documented as of this encounter
--- OUTSIDE RECORDS SUMMARY | 2024-10-05 15:50 | XMS_ITS | Encounter Summary ---
Author Organization [facility] Address [address] [facility] [place] [address] Phone Care Team Providers Care Horse Wrangler Name Role Phone Fco Llanes MD Primary Care Provider [phone] Uche Haley MD Unavailable [phone] Della Whaley DO Primary Care Provider [phone] Reason for Visit * Reason Comments Medication Refill Encounter Details Date Type Department Care Team (Late st Contact Info) Description 08/20/2022 Refill [facility] Medical Group - Family Medicine [facility] #2 [place] [address] Valdo Florence, NICOLE, PSYCHOLOGICAL SCIENCE PROFESSOR #[address] [address] Medication Refill Social History Tobacco Use Types [...] Sex Assigned at Female 07/10/2023 4:42 AM CAMOUFLAGE SPECIALIST Legal Sex Female 3:32 PM CAMOUFLAGE SPECIALIST Gender Identity Female 07/10/2023 4:42 AM CAMOUFLAGE SPECIALIST Sexual Orientation Straight 07/10/2023 4: 42 AM CAMOUFLAGE SPECIALIST documented as of this encounter Miscellaneous Notes * Telephone Encounter - Beatrice Cid RN - 08/20/2022 10:07 AM CST Medication failed the protocol, provider to review and approve the medication order if appropriate. Requested Prescriptions Pending Prescriptions Disp Refills Lantus SoloStar 100 UNIT/ML Solution Pen-injector [Pharmacy Med Name: LANTUS SOLOSTAR PEN INJ 3ML] 6 mL 3 Sig: ADMINISTER 15 UNITS UNDER THE SKIN EVERY NIGHT Not Delegated - Insulin Protocol Failed - 08/20/2022 4:35 AM Failed - This refill cannot be delegated Passed - Visit with relevant provider in past 12 months or upcoming 90 days Recent Visits Date Type Provider Dept 05/17/22 Office Visit Fco Llanes MD [facility] 11/16/21 Office Visit [facility] [place] Showing recent visits within past 365 days and meeting all other requirements Future Appointments Date Type Provider Dept 09/20/22 Appointment Fco Llanes MD [facility] [place] Showing future appointments within next 90 days and meeting all other requirements UFLAGE SPECIALIST documented in this encounter Plan of Treatment Upcoming Encounters Date Type Department Care Team (Late st Contact Info) Description 10/11/2024 1:15 PM CAMOUFLAGE SPECIALIST Office Visit [facility] Medical Group - Family Medicine - [place] #[address] [place] [address] Della Whaley, DO 2 [facility] [address] [place] [address] documented as of this encounter Visit Diagnoses Diagnosis Type 2 diabetes mellitus without complication, without long-term current use of insulin (HCC) documented in this encounter Additional Health Concerns Assessment Noted Time PHQ-9 Depression Total Score: 5 11/17/19 22 9:00 AM CDT documented as of this encounter Care Teams Horse Wrangler Relationship Specialty Start Date End Date Fco Llanes MD PCP - General Family Medicine 07/14/20 01/28/24 Della Whaley DO [address] [facility] [facility] [facility] [address] [place], [place] [id number] PCP - General Family Medicine 01/30/24 Uche Haley MD #[address] [address] Consulting Physician General Surgery 02/21/23 documented as of this encounter
--- OUTSIDE RECORDS SUMMARY | 2024-10-05 15:50 | XMS_ITS | Encounter Summary ---
Author Organization [facility] Address [address] [facility] [place] [place] [address] Phone Care Team Providers Care Director Of Staff Development Name Role Phone Foc Llanes MD Primary Care Provider [phone] Uche Haley MD Unavailable [phone] Della Whaley DO Primary Care Provider [phone] Reason for Visit * Reason Comments Medication Refill Encounter Details Date Type Department Care Team (Late st Contact Info) Description 07/24/2022 Refill [facility] Medical Group - Family Medicine [facility] #2 [place] [address] Fco Llanes MD #1 [place] [address] Medication Refill Social History Tobacco Use Types [...] Sex Assigned at Female 07/10/2023 4:42 AM DEICER ELEMENT WINDER MACHINE Legal Sex Female 3:32 PM DEICER ELEMENT WINDER MACHINE Gender Identity Female 07/10/2023 4:42 AM DEICER ELEMENT WINDER MACHINE Sexual Orientation Straight 07/10/2023 4: 42 AM DEICER ELEMENT WINDER MACHINE documented as of this encounter Miscellaneous Notes * Telephone Encounter - Kim Canela RN - 07/24/2022 12:46 PM CST Medication failed the protocol, provider to review and approve the medication order if appropriate. Requested Prescriptions Pending Prescriptions Disp Refills cyclobenzaprine (FLEXERIL) 10 MG Tablet [Pharmacy Med Name: CYCLOBENZAPRINE 10MG TABLETS] 42 Tablet0 Sig: TAKE 1 TABLET BY MOUTH THREE TIMES DAILY FOR UP TO 14 DAYS NEEDED FOR MUSCLE SPASMS Not Delegated - Muscle Relaxants Protocol Failed - 07/24/2022 7:37 AM Failed - This refill cannot be delegated Passed - Visit with relevant provider in past 12 months or upcoming 90 days Recent Visits Date Type Provider Dept 05/17/22 Office Visit Fco Llanes MD [facility] 11/16/21 Office Visit Fco Llanes MD [facility] [place] Showing recent visits within past 365 days and meeting all other requirements Future Appointments Date Type Provider Dept 09/20/22 Appointment Fco Llanes MD [facility] [place] Showing future appointments within next 90 days and meeting all other requirements ER ELEMENT WINDER MACHINE documented in this encounter Plan of Treatment Upcoming Encounters Date Type Department Care Team (Late st Contact Info) Description 10/11/2024 1:15 PM DEICER ELEMENT WINDER MACHINE Office Visit [facility] Medical Group - Family Medicine - [place] #[address] [place] [address] Della Whaley, DO 2 [facility] [facility] [address] [place] [address] documented as of this encounter Visit Diagnoses Diagnosis Chronic tension-type headache, not intractable Chronic tension type headache documented in this encounter Additional Health Concerns Assessment Noted Time PHQ-9 Depression Total Score: 5 11/17/19 22 9:00 AM CDT documented as of this encounter Care Teams Director Of Staff Development Relationship Specialty Start Date End Date Fco Llanes MD PCP - General Family Medicine 07/14/20 01/28/24 Della Whaley DO [address] [address] PCP - General Family Medicine 01/30/24 Uche Haley MD [address] [address] Consulting Physician General Surgery 02/21/23 documented as of this encounter
--- OUTSIDE RECORDS SUMMARY | 2024-10-05 15:50 | XMS_ITS | Encounter Summary ---
Author Organization [facility] Address [address] [facility] [place] [address] Phone Care Team Providers Care Line Service Supervisor Name Role Phone Fco Llanes MD Primary Care Provider [phone] Uche Haley MD Unavailable [phone] Della Whaley DO Primary Care Provider [phone] Reason for Visit * Reason Comments Medication Refill Encounter Details Date Type Department Care Team (Late st Contact Info) Description 11/11/2022 Refill [facility] Medical [facility] - Family Medicine [facility] [address]2 [place] [phone] Fco Llanes MD [address]1 [place] [address] Medication Refill Social History Tobacco Use Types [...] Sex Assigned at Female 07/10/2023 4:42 AM SWAGER OPERATOR Legal Sex Female 3:32 PM SWAGER OPERATOR Gender Identity Female 07/10/2023 4:42 AM SWAGER OPERATOR Sexual Orientation Straight 07/10/2023 4: 42 AM SWAGER OPERATOR documented as of this encounter Miscellaneous Notes * Telephone Encounter - Judy Vidal RN - 11/11/2022 9:26 AM CDT PDMP 10/11/22 zolpidem #30. 10/14/22 cyclobenzaprine #42 Medication failed the protocol, provider to review and approve the medication order if appropriate. Requested Prescriptions Pending Prescriptions Disp Refills zolpidem (AMBIEN) 10 MG Tablet [Pharmacy Med Name: ZOLPIDEM 10MG TABLETS] 30 Tablet 0 Sig: TAKE 1 TABLET BY MOUTH EVERY NIGHT NEEDED FOR SLEEP. Not Delegated - Off Protocol Failed - 11/11/2022 5:06 AM Failed - This refill cannot be delegated Passed - Visit with relevant provider in past 12 months or upcoming 90 days Recent Visits Date Type Provider Dept 09/20/22 Office Visit Fco Llanes MD [facility] 05/17/22 Office Visit Fco Llanes MD [facility] 11/16/21 Office Visit Fco Llanes MD [facility] Showing recent visits within past 365 days and meeting all other requirements Future Appointments Date Type Provider Dept 01/24/23 Appointment Fco Llanes MD [facility] Showing future appointments within next 90 days and meeting all other requirements cyclobenzaprine (FLEXERIL) 10 MG Tablet [Pharmacy Med Name: CYCLOBENZAPRINE 10MG TABLETS] 42 Tablet0 Sig: TAKE 1 TABLET BY MOUTH THREE TIMES DAILY FOR UP TO 14 DAYS NEEDED FOR MUSCLE SPASMS Not Delegated - Muscle Relaxants Protocol Failed - 11/11/2022 5:06 AM Failed - This refill cannot be delegated Passed - Visit with relevant provider in past 12 months or upcoming 90 days Recent Visits Date Type Provider Dept 09/20/22 Office Visit Fco Llanes MD [facility] 05/17/22 Office Visit Fco Llanes MD [facility] 11/16/21 Office Visit Fco Llanes MD [facility] [place] Showing recent visits within past 365 days and meeting all other requirements Future Appointments Date Type Provider Dept 01/24/23 Appointment Fco Llanes MD [facility] [place] Showing future appointments within next 90 days and meeting all other requirements documented in this encounter Plan of Treatment Upcoming Encounters Date Type Department Care Team (Late st Contact Info) Description 10/11/2024 1:15 PM SWAGER OPERATOR Office Visit [facility] Medical Group - Family Medicine - [place] [address] [facility] [place] [address] Della Whaley DO 2 [facility] [address] [place] [address] documented as of this encounter Visit Diagnoses Diagnosis Insomnia, unspecified type Chronic tension-type headache, not intractable Chronic tension type headache documented in this encounter Additional Health Concerns Assessment Noted Time PHQ-9 Depression Total Score: 5 11/17/19 22 9:00 AM CDT documented as of this encounter Care Teams Line Service Supervisor Relationship Specialty Start Date End Date Fco Llanes MD PCP - General Family Medicine 07/14/20 01/28/24 Della Whaley DO 2 [facility] [address] [place] [address] PCP - General Family Medicine 01/30/24 Uche Haley MD [address] [place] [address] Consulting Physician General Surgery 02/21/23 documented as of this encounter
--- OUTSIDE RECORDS SUMMARY | 2024-10-05 15:50 | XMS_ITS | Encounter Summary ---
Author Organization [facility] Address [address] [facility] [place] [address] Phone Care Team Providers Care Train Gateman Name Role Phone Fco Llanes MD Primary Care Provider [phone] Uche Haley MD Unavailable [phone] Della Whaley DO Primary Care Provider [phone] Reason for Visit * Reason Comments Medication Refill Encounter Details Date Type Department Care Team (Late st Contact Info) Description 06/12/2022 Refill [facility] - Family Medicine [facility] [address]2 [place] [phone] Fco Llanes MD [address]1 [place] [address] Medication Refill Social History Tobacco Use Types [...] Sex Assigned at Female 07/10/2023 4:42 AM PASTRY DECORATOR Legal Sex Female 3:32 PM PASTRY DECORATOR Gender Identity Female 07/10/2023 4:42 AM PASTRY DECORATOR Sexual Orientation Straight 07/10/2023 4: 42 AM PASTRY DECORATOR COVID-19 Exposure Response Date Recorded In the last 10 days, have yo u been in contact with someone who was confirmed or suspected to have Coronavirus/COVID-19? No / Unsure 05/17/2022 3:02 PM CDT documented as of this encounter Miscellaneous Notes * Telephone Encounter - Beatriec Cid RN - 06/12/2022 3:36 PM CDT Medication failed the protocol, provider to review and approve the medication order if appropriate. Requested Prescriptions Pending Prescriptions Disp Refills HumaLOG KwikPen 100 UNIT/ML Solution Pen-injector [Pharmacy Med Name: HUMALOG 100 U/ML KWIK PEN INJ3ML] 15 mL 2 Sig: INJECT UNDER THE SKIN TWICE DAILY SLIDING SCLAE. NO MORE THAN 40 UNITS PER DAY Not Delegated - Insulin Protocol Failed - 06/12/2022 12:44 PM Failed - This refill cannot be delegated Passed - Visit with relevant provider in past 12 months or upcoming 90 days Recent Visits Date Type Provider Dept 05/17/22 Office Visit Fco Llanes MD [facility] [place] 11/16/21 Office Visit Fco Llanes MD [facility] Showing recent visits within past 365 days and meeting all other requirements Future Appointments No visits were found meeting these conditions. Showing future appointments within next 90 days and meeting all other requirements documented in this encounter Plan of Treatment Upcoming Encounters Date Type Department Care Team (Late st Contact Info) Description 10/11/2024 1:15 PM PASTRY DECORATOR [facility] - [place] [address] [place] [address] Della Whaley, DO 2 [facility]. [address] [place] [address] documented as of this encounter Visit Diagnoses Diagnosis Type 2 diabetes mellitus without complication, without long-term current use of insulin (HCC) documented in this encounter Additional Health Concerns Assessment Noted Time PHQ-9 Depression Total Score: 5 11/17/19 22 9:00 AM CDT documented as of this encounter Care Teams Train Gateman Relationship Specialty Start Date End Date Fco Llanes MD PCP - General Family Medicine 07/14/20 01/28/24 Della Whaley DO [address] [facility]. [address] [place] [address] PCP - General Family Medicine 01/30/24 Uche Haley MD [address] [facility] [address] [place] [address] Consulting Physician General Surgery 02/21/23 documented as of this encounter
--- OUTSIDE RECORDS SUMMARY | 2024-10-05 15:50 | XMS_ITS | Encounter Summary ---
Author Organization [facility] Address [address] [facility] [facility] [place] [address] Phone Care Team Providers Care Ciso Name Role Phone Fco Llanes MD Primary Care Provider [phone] Uche Haley MD Unavailable [phone] Della Whaley DO Primary Care Provider [phone] Reason for Visit * Reason Comments Medication Refill Encounter Details Date Type Department Care Team (Late st Contact Info) Description 09/23/2022 Refill [facility] Medical [facility] - Family Medicine [facility] #2 [place] [phone] Fco Llanes MD [address] [place] [address] Medication Refill Social History Tobacco Use Types [...] Sex Assigned at Female 07/10/2023 4:42 AM PRESCHOOL ASSISTANT PRINCIPAL Legal Sex Female 3:32 PM PRESCHOOL ASSISTANT PRINCIPAL Gender Identity Female 07/10/2023 4:42 AM PRESCHOOL ASSISTANT PRINCIPAL Sexual Orientation Straight 07/10/2023 4: 42 AM PRESCHOOL ASSISTANT PRINCIPAL COVID-19 Exposure Response Date Recorded In the last 10 days, have yo u been in contact with someone who was confirmed or suspected to have Coronavirus/COVID-19? No / Unsure 09/20/2022 1:43 PM PRESCHOOL ASSISTANT PRINCIPAL documented as of this encounter Miscellaneous Notes * Telephone Encounter - Judy Vidal RN - 09/23/2022 9:17 AM PRESCHOOL ASSISTANT PRINCIPAL PDMP 08/20/2022 #30 Medication failed the protocol, provider to review and approve the medication order if appropriate. Requested Prescriptions Pending Prescriptions Disp Refills zolpidem (AMBIEN) 10 MG Tablet [Pharmacy Med Name: ZOLPIDEM 10MG TABLETS] 30 Tablet 0 Sig: TAKE 1 TABLET BY MOUTH EVERY NIGHT NEEDED FOR SLEEP Not Delegated - Off Protocol Failed - 09/23/2022 1:07 AM Failed - This refill cannot be [...] 90 days and meeting all other requirements fish oil-omega-3 fatty acids 1000 MG Capsule [Pharmacy Med Name: FISH OIL 1000MG CAPSULES] 60 Capsule 2 Sig: TAKE 2 CAPSULES BY MOUTH DAILY Not Delegated - Off Protocol Failed - 09/23/2022 1:07 AM Failed - This refill cannot be delegated Passed - Visit with relevant provider in past 12 months or upcoming 90 days Recent Visits Date Type Provider Dept 09/20/22 Office Visit Fco Llanes MD [facility] 05/17/22 Office Visit Fco Llanes MD [facility] 11/16/21 [facility] recent visits within past 365 days and meeting all other requirements Future Appointments No visits were found meeting these conditions. Showing future appointments within next 90 days and meeting all other requirements CHOOL ASSISTANT PRINCIPAL documented in this encounter Plan of Treatment Upcoming Encounters Date Type Department Care Team (Late st Contact Info) Description 10/11/2024 1:15 PM PRESCHOOL ASSISTANT PRINCIPAL Office Visit [facility] Medical Group - Family Medicine - [place] [address] [facility] [facility] [address] Della Wh[address] DO [address] [facility] [facility] [address] [place] [address] documented as of this encounter Visit Diagnoses Diagnosis Insomnia, unspecified type documented in this encounter Additional Health Concerns Assessment Noted Time PHQ-9 Depression Total Score: 5 11/17/19 22 9:00 AM CDT documented as of this encounter Care Teams Ciso Relationship Specialty Start Date End Date Fco Llanes MD PCP - General Family Medicine 07/14/20 01/28/24 Della Whaley DO [address] [facility] [address] [place] [address] PCP - General Family Medicine 01/30/24 Uche Haley MD [address] [place] [address] Consulting Physician General Surgery 02/21/23 documented as of this encounter
--- OUTSIDE RECORDS SUMMARY | 2024-10-05 15:50 | XMS_ITS | Encounter Summary ---
Author Organization [facility] Address [address] [facility] [place] [address] Phone Care Team Providers Care Road Passenger Firer Name Role Phone Fco Llanes MD Primary Care Provider [phone] Uche Haley MD Unavailable [phone] Della Whaley DO Primary Care Provider [phone] Reason for Visit * Reason Comments Medication Refill Encounter Details Date Type Department Care Team (Late st Contact Info) Description 09/23/2022 Refill [facility] Medical Group - Family Medicine [facility] [address] [place] [address] Fco Llanes MD [address]1 [place] [address] Medication Refill Social History Tobacco Use Types [...] Sex Assigned at Female 07/10/2023 4:42 AM CAN MACHINE OPERATOR Legal Sex Female 3:32 PM CAN MACHINE OPERATOR Gender Identity Female 07/10/2023 4:42 AM CAN MACHINE OPERATOR Sexual Orientation Straight 07/10/2023 4: 42 AM CAN MACHINE OPERATOR COVID-19 Exposure Response Date Recorded In the last 10 days, have yo u been in contact with someone who was confirmed or suspected to have Coronavirus/COVID-19? No / Unsure 09/20/2022 1:43 PM CAN MACHINE OPERATOR documented as of this encounter Miscellaneous Notes * Telephone Encounter - Beatrice Cid RN - 09/24/2022 7:29 AM CST Name from pharmacy: ZOLPIDEM 10MG TABLETS Will file in chart as: zolpidem (AMBIEN) 10 MG Tablet The original prescription was reordered on 09/23/2022 by Fco Llanes MD. MACHINE OPERATOR * Telephone Encounter - Beatrice Cid RN - 09/23/2022 3:53 PM CST duplicate MACHINE OPERATOR documented in this encounter Plan of Treatment Upcoming Encounters Date Type Department Care Team (Late st Contact Info) Description 10/11/2024 1:15 PM CAN MACHINE OPERATOR [facility] - Family [facility] [address]2 [place] [address] Della Whaley, DO [address] [address] documented as of this encounter Visit Diagnoses Diagnosis Insomnia, unspecified type documented in this encounter Additional Health Concerns Assessment Noted Time PHQ-9 Depression Total Score: 5 11/17/19 22 9:00 AM CDT documented as of this encounter Care Teams Road Passenger Firer Relationship Specialty Start Date End Date Fco Llanes MD PCP - General Family Medicine 07/14/20 01/28/24 Della Whaley DO [address] [facility] [address] [place], [place] [phone] PCP - General Family Medicine 01/30/24 Uche Haley MD #[address] [facility] [address] Consulting Physician General Surgery 02/21/23 documented as of this encounter
--- OUTSIDE RECORDS SUMMARY | 2024-10-05 15:50 | XMS_ITS | Encounter Summary ---
Author Organization [facility] Address [address] [facility] [place] [address] Phone Care Team Providers Care Alpine Guide Name Role Phone Fco Llanes MD Primary Care Provider [phone] Uche Haley MD Unavailable [phone] Della Whaley DO Primary Care Provider [phone] Reason for Visit * Reason Comments Medication Refill Encounter Details Date Type Department Care Team (Late st Contact Info) Description 08/14/2022 Refill [facility] Medical [facility] - Family Medicine [facility] #2 [place] [phone] Fco Llanes MD #1 [place] [address] Medication Refill Social History Tobacco Use Types [...] Sex Assigned at Female 07/10/2023 4:42 AM DISTRICT SALES COORDINATOR Legal Sex Female 3:32 PM DISTRICT SALES COORDINATOR Gender Identity Female 07/10/2023 4:42 AM DISTRICT SALES COORDINATOR Sexual Orientation Straight 07/10/2023 4: 42 AM DISTRICT SALES COORDINATOR documented as of this encounter Miscellaneous Notes * Telephone Encounter - Kim Canela RN - 08/14/2022 1:15 PM CST Medication warning, requires approval from provider Per nursing clinical judgement, provider to review and approve the medication(s) order(s) if appropriate. Requested Prescriptions Pending Prescriptions Disp Refills glimepiride (AMARYL) 4 MG Tablet [Pharmacy Med Name: GLIMEPIRIDE 4MG TABLETS] 90 Tablet 3 Sig: TAKE 1 TABLET BY MOUTH EVERY MORNING Sulfonylureas Protocol Passed - 08/14/2022 5:46 AM Passed - Visit with relevant provider in past 6 months or upcoming 90 days Recent Visits Date Type Provider Dept 05/17/22 Office Visit Fco Llanes MD [facility] Showing recent visits within past 182 days and meeting all other requirements Future Appointments Date Type Provider Dept 09/20/22 Appointment Fco Llanes MD [facility] Showing future appointments within next 90 days and meeting all other requirements Passed - HgA1C on record in past 6 months HGB-A1C Date Value Ref Range Status 05/17/2022 8.8 (A) 4 - 6 Final Passed - GFR on record in past 6 months GFR, EST. NONAFRICAN Date Value Ref Range Status 05/17/2022 >60 >=60 Final busPIRone (BUSPAR) 10 MG Tablet [Pharmacy Med Name: BUSPIRONE 10MG TABLETS] 90 Tablet 2 Sig: TAKE 1 TABLET BY MOUTH THREE TIMES DAILY Buspirone (6 Month Refill Only) Protocol Passed - 08/14/2022 5:46 AM Passed - No test in the past 12 months or most recent test was negative Passed - No active on record Passed - Visit with relevant provider in past 6 months or upcoming 90 days Recent Visits Date Type Provider Dept 05/17/22 Office Visit Fco Llanes MD [facility] Showing recent visits within past 182 days and meeting all other requirements Future Appointments Date Type Provider Dept 09/20/22 Appointment Fco Llanes MD [facility] Showing future appointments within next 90 days and meeting all other requirements Passed - Has an encounter in the past 6 months with a depression or anxiety visit diagnosis Passed - Patient has established therapy with Buspirone for at least 6 months sertraline (ZOLOFT) 50 MG Tablet [Pharmacy Med Name: SERTRALINE 50MG TABLETS] 30 Tablet 0 Sig: TAKE 1 TABLET BY MOUTH DAILY SSRI (6 Month Refill Only) Protocol Passed - 08/14/2022 5:46 AM Passed - No test in the past 12 months or most recent test was negative Passed - No active on record Passed - Visit with relevant provider in past 6 months or upcoming 90 days Recent Visits Date Type Provider Dept 05/17/22 Office Visit Fco Llanes MD [facility] Showing recent visits within past 182 days and meeting all other requirements Future Appointments Date Type Provider Dept 09/20/22 Appointment Fco Llanes MD [facility] Showing future appointments within next 90 days and meeting all other requirements Passed - Patient has established therapy with SSRI for at least 6 months Passed - Has an encounter in the past 6 months with a depression, anxiety, adjustment disorder, OCD, or PTSD visit diagnosis RICT SALES COORDINATOR documented in this encounter Plan of Treatment Upcoming Encounters Date Type Department Care Team (Late st Contact Info) Description 10/11/2024 1:15 PM DISTRICT SALES COORDINATOR Office Visit [facility] Medical [facility] - Family Medicine - [place] [address] [place] [address] Della Whaley, DO [address] [address] documented as of this encounter Visit Diagnoses Diagnosis Major depressive episode Major depressive disorder, single episode, unspecified documented in this encounter Additional Health Concerns Assessment Noted Time PHQ-9 Depression Total Score: 5 11/17/19 22 9:00 AM CDT documented as of this encounter Care Teams Alpine Guide Relationship Specialty Start Date End Date Fco Llanes MD PCP - General Family Medicine 07/14/20 01/28/24 Della Whaley DO [address] [facility] [address] [place] [address] PCP - General Family Medicine 01/30/24 Uche Haley MD #[address] [facility] [address] [phone] Consulting Physician General Surgery 02/21/23 documented as of this encounter
--- OUTSIDE RECORDS SUMMARY | 2024-10-05 15:50 | XMS_ITS | Encounter Summary ---
Author Organization [facility] Address [address] [facility] [place] [address] Phone Care Team Providers Care Gas Engine Performance Engineer Name Role Phone Fco Llanes MD Primary Care Provider [phone] Uche Haley MD Unavailable [phone] Della Whaley DO Primary Care Provider [phone] Reason for Visit * Reason Comments Medication Refill Encounter Details Date Type Department Care Team (Late st Contact Info) Description 06/15/[address] [facility] - Family Medicine [facility] #2 [place] [phone] Fco Llaens MD #1 [place] [address] Medication Refill Social History Tobacco Use Types [...] Sex Assigned at Female 07/10/2023 4:42 AM TOBACCO EDUCATOR Legal Sex Female 3:32 PM TOBACCO EDUCATOR Gender Identity Female 07/10/2023 4:42 AM TOBACCO EDUCATOR Sexual Orientation Straight 07/10/2023 4: 42 AM TOBACCO EDUCATOR COVID-19 Exposure Response Date Recorded In the last 10 days, have yo u been in contact with someone who was confirmed or suspected to have Coronavirus/COVID-19? No / Unsure 05/17/2022 3:02 PM CDT documented as of this encounter Miscellaneous Notes * Telephone Encounter - Judy Vidal RN - 06/17/2022 8:41 AM TOBACCO EDUCATOR Medication warning. Medication failed the protocol, provider to review and approve the medication order if appropriate. Requested Prescriptions Pending Prescriptions Disp Refills metFORMIN (GLUCOPHAGE) 500 MG Tablet [Pharmacy Med Name: METFORMIN 500MG TABLETS] 120 Tablet 0 Sig: TAKE 2 TABLETS BY MOUTH TWICE DAILY WITH MEALS Biguanides Protocol Passed - 06/15/2022 5:43 AM Passed - Visit with relevant provider [...] Ref Range Status 05/17/2022 >60 >=60 Final Januvia 100 MG Tablet [Pharmacy Med Name: JANUVIA 100MG TABLETS] 30 Tablet 0 Sig: TAKE 1 TABLET BY MOUTH DAILY DPP-4 Inhibitors Protocol Passed - 06/15/2022 5:43 AM Passed - Visit with relevant provider [...] Ref Range Status 05/17/2022 >60 >=60 Final sertraline (ZOLOFT) 50 MG Tablet [Pharmacy Med Name: SERTRALINE 50MG TABLETS] 30 Tablet 0 Sig: TAKE 1 TABLET BY MOUTH DAILY SSRI (6 Month Refill Only) Protocol Passed - 06/15/2022 5:43 AM Passed - No test in the past 12 months or most recent test was negative Passed - No active on record Passed - Visit with relevant provider in past 6 months or upcoming 90 days Recent Visits Date Type Provider Dept 05/17/22 Office Visit Fco Llanes MD [facility] Showing recent visits within past 182 days [...] adjustment disorder, OCD, or PTSD visit diagnosis CCO EDUCATOR documented in this encounter Plan of Treatment Upcoming Encounters Date Type Department Care Team (Late st Contact Info) Description 10/11/2024 1:15 PM TOBACCO EDUCATOR [facility] Family [facility] [address]2 [place] [address] Della Whaley, DO [address] [address] documented as of this encounter Visit Diagnoses Diagnosis Major depressive episode Major depressive disorder, single episode, unspecified documented in this encounter Additional Health Concerns Assessment Noted Time PHQ-9 Depression Total Score: 5 11/17/19 22 9:00 AM CDT documented as of this encounter Care Teams Gas Engine Performance Engineer Relationship Specialty Start Date End Date Fco Llanes MD PCP - General Family Medicine 07/14/20 01/28/24 Della Whaley DO [address] [facility] [address] [place], [place] [phone] PCP - General Family Medicine 01/30/24 Uche Haley MD [address] [phone] Consulting Physician General Surgery 02/21/23 documented as of this encounter
--- OUTSIDE RECORDS SUMMARY | 2024-10-05 15:50 | XMS_ITS | Encounter Summary ---
Author Organization [facility] Address [address] [facility] [place] [address] Phone Care Team Providers Care Lance Crewmember Name Role Phone Fco Llanes MD Primary Care Provider [phone] Uche Haley MD Unavailable [phone] Della Whaley DO Primary Care Provider [phone] Reason for Visit * Reason Comments Medication Refill Encounter Details Date Type Department Care Team (Late st Contact Info) Description 07/15/2022 Refill [facility] - Family Medicine [facility] [address] [place] [id number] Fco Llanes MD [address] [place] [address] Medication Refill Social History Tobacco Use Types [...] Sex Assigned at Female 07/10/2023 4:42 AM DELINQUENCY COUNSELOR Legal Sex Female 3:32 PM DELINQUENCY COUNSELOR Gender Identity Female 07/10/2023 4:42 AM DELINQUENCY COUNSELOR Sexual Orientation Straight 07/10/2023 4: 42 AM DELINQUENCY COUNSELOR documented as of this encounter Miscellaneous Notes * Telephone Encounter - Judy Vidal RN - 07/15/2022 8:53 AM DELINQUENCY COUNSELOR Medication warning. Per nursing clinical judgement, provider to review and approve the medication(s) order(s) if appropriate. Requested Prescriptions Pending Prescriptions Disp Refills losartan (COZAAR) 25 MG Tablet [Pharmacy Med Name: LOSARTAN 25MG TABLETS] 90 Tablet 1 Sig: TAKE 1 TABLET BY MOUTH DAILY ARB Protocol Passed - 07/15/2022 5:48 AM Passed - Serum potassium on record in past 12 months POTASSIUM Date Value Ref Range Status 05/17/2022 4.1 3.5 - 5.1 mmol/L Final Passed - BP on record in the past year Clinician-entered: BP Readings from Last 3 Encounters: 05/17/22 112/80 11/16/21 126/88 03/30/21 116/78 Patient-entered: No data recorded Passed - No [...] Ref Range Status 05/17/2022 >60 >=60 Final metFORMIN (GLUCOPHAGE) 500 MG Tablet [Pharmacy Med Name: METFORMIN 500MG TABLETS] 120 Tablet 0 Sig: TAKE 2 TABLETS BY MOUTH TWICE DAILY WITH MEALS Biguanides Protocol Passed - 07/15/2022 5:48 AM Passed - Visit with relevant provider [...] MOUTH DAILY DPP-4 Inhibitors Protocol Passed - 07/15/2022 5:48 AM Passed - Visit with relevant provider [...] (6 Month Refill Only) Protocol Passed - 07/15/2022 5:48 AM Passed - No test in the [...] Provider Dept 09/20/22 Appointment Fco Llanes MD [facility] Showing future appointments within next 90 days and meeting all other requirements Passed - Patient has established therapy with SSRI for at least 6 months Passed - Has an encounter in the past 6 months with a depression, anxiety, adjustment disorder, OCD, or PTSD visit diagnosis NQUENCY COUNSELOR documented in this encounter Plan of Treatment Upcoming Encounters Date Type Department Care Team (Late st Contact Info) Description 10/11/2024 1:15 PM DELINQUENCY COUNSELOR Office Visit [facility] - [facility] [address] [facility] [place] [address] Della Whaley DO [address] [facility] [address] [place] [address] documented as of this encounter Visit Diagnoses Diagnosis Major depressive episode Major depressive disorder, single episode, unspecified documented in this encounter Additional Health Concerns Assessment Noted Time PHQ-9 Depression Total Score: 5 11/17/19 22 9:00 AM CDT documented as of this encounter Care Teams Lance Crewmember Relationship Specialty Start Date End Date Fco Llanes MD PCP - General Family Medicine 07/14/20 01/28/24 Della Whaley DO [address] [facility] [address] [place] [address] PCP - General Family Medicine 01/30/24 Uche Haley MD [address] [place] [address] Consulting Physician General Surgery 02/21/23 documented as of this encounter
--- OUTSIDE RECORDS SUMMARY | 2024-10-05 15:50 | XMS_ITS | Encounter Summary ---
Author Organization [facility] Address [address] [facility] [place] [address] Phone Care Team Providers Care Radiology Director Name Role Phone Fco Llanes MD Primary Care Provider [phone] Uche Haley MD Unavailable [phone] Della Whaley DO Primary Care Provider [phone] Reason for Visit * Reason Comments Medication Refill Encounter Details Date Type Department Care Team (Late st Contact Info) Description 06/17/2022 Refill [facility] - Family Medicine [facility] [address] [place] [phone] Fco Llanes MD [address] [place] [address] Medication Refill Social History Tobacco Use Types [...] Sex Assigned at Female 07/10/2023 4:42 AM FARMWORKER GENERAL Legal Sex Female 3:32 PM FARMWORKER GENERAL Gender Identity Female 07/10/2023 4:42 AM FARMWORKER GENERAL Sexual Orientation Straight 07/10/2023 4: 42 AM FARMWORKER GENERAL documented as of this encounter Miscellaneous Notes * Telephone Encounter - Judy Vidal RN - 06/18/2022 9:37 AM FARMWORKER GENERAL PDMP 05/17/2022 #42 Medication failed the protocol, provider to review and approve the medication order if appropriate. Requested Prescriptions Pending Prescriptions Disp Refills cyclobenzaprine (FLEXERIL) 10 MG Tablet [Pharmacy Med Name: CYCLOBENZAPRINE 10MG TABLETS] 42 Tablet0 Sig: TAKE 1 TABLET BY MOUTH THREE TIMES DAILY FOR UP TO 14 DAYS NEEDED FOR MUSCLE SPASMS Not Delegated - Muscle Relaxants Protocol Failed - 06/17/2022 11:26 PM Failed - This refill cannot be delegated Failed - Active on medication list Passed - Visit with relevant provider in past 12 months or upcoming 90 days Recent Visits Date Type Provider Dept 05/17/22 Office Visit Fco Llanes MD [facility] 11/16/21 Office Visit Fco Llanes MD [facility] Showing recent visits within past 365 days and meeting all other requirements Future Appointments No visits were found meeting these conditions. Showing future appointments within next 90 days and meeting all other requirements WORKER GENERAL documented in this encounter Plan of Treatment Upcoming Encounters Date Type Department Care Team (Late st Contact Info) Description 10/11/2024 1:15 PM FARMWORKER GENERAL Office Visit [facility] - Family Medicine - [place] [address] [place] [place] [address] Della Whaley, DO [address] [place] [place], [place] [address], [place] [address] documented as of this encounter Visit Diagnoses Diagnosis Chronic tension-type headache, not intractable Chronic tension type headache documented in this encounter Additional Health Concerns Assessment Noted Time PHQ-9 Depression Total Score: 5 11/17/19 22 9:00 AM CDT documented as of this encounter Care Teams Radiology Director Relationship Specialty Start Date End Date Fco Llanse MD PCP - General Family Medicine 07/14/20 01/28/24 Della Whaley DO [address] [facility] [address] [place], [place] [id number] PCP - General Family Medicine 01/30/24 Uche Haley MD [address] [address] Consulting Physician General Surgery 02/21/23 documented as of this encounter
--- OUTSIDE RECORDS SUMMARY | 2024-10-05 15:50 | XMS_ITS | Encounter Summary ---
Author Organization [facility] Address [address] [facility] [place] [address] Phone Care Team Providers Care Short Goods Drier Name Role Phone Fco Llanes MD Primary Care Provider [phone] Uche Haley MD Unavailable [phone] Della Whaley DO Primary Care Provider [phone] Reason for Visit * Reason Comments Medication Refill Encounter Details Date Type Department Care Team (Late st Contact Info) Description 09/13/2022 Refill [facility] [address] [place] [phone] Fco Llanes MD [address] [place] [address] Medication Refill Social History Tobacco Use Types [...] Sex Assigned at Female 07/10/2023 4:42 AM LONG FILLER CIGAR ROLLER MACHINE Legal Sex Female 3:32 PM LONG FILLER CIGAR ROLLER MACHINE Gender Identity Female 07/10/2023 4:42 AM LONG FILLER CIGAR ROLLER MACHINE Sexual Orientation Straight 07/10/2023 4: 42 AM LONG FILLER CIGAR ROLLER MACHINE documented as of this encounter Miscellaneous Notes * Telephone Encounter - Beatrice Cid RN - 09/13/2022 8:54 AM CST Medication warning Per nursing clinical judgement, provider to review and approve the medication(s) order(s) if appropriate. Requested Prescriptions Pending Prescriptions Disp Refills sertraline (ZOLOFT) 50 MG Tablet [Pharmacy Med Name: SERTRALINE 50MG TABLETS] 30 Tablet 2 Sig: TAKE 1 TABLET BY MOUTH DAILY SSRI (6 Month Refill Only) Protocol Passed - 09/13/2022 5:49 AM Passed - No test in the past 12 months or most recent test was negative Passed - No active on record Passed - Visit with relevant provider in past 6 months or upcoming 90 days Recent Visits Date Type Provider Dept 05/17/22 Office Visit Fco Llanes MD [facility] Showing recent visits within past 182 days and meeting all other requirements Future Appointments Date Type Provider Dept 09/20/22 Appointment Fco Llanes MD [facility] Showing future appointments within next 90 days and meeting all other requirements Passed - Patient has established therapy with SSRI for at least 6 months Passed - Has an encounter in the past 6 months with a depression, anxiety, adjustment disorder, OCD, or PTSD visit diagnosis FILLER CIGAR ROLLER MACHINE documented in this encounter Plan of Treatment Upcoming Encounters Date Type Department Care Team (Late st Contact Info) Description 10/11/2024 1:15 PM LONG FILLER CIGAR ROLLER MACHINE Office Visit [facility] - Family Medicine - [place] [address] [place] [address] Della Whaley, DO [address] [facility] [address], [facility]. [address] [place] [address] documented as of this encounter Visit Diagnoses Diagnosis Major depressive episode Major depressive disorder, single episode, unspecified documented in this encounter Additional Health Concerns Assessment Noted Time PHQ-9 Depression Total Score: 5 11/17/19 22 9:00 AM CDT documented as of this encounter Care Teams Short Goods Drier Relationship Specialty Start Date End Date Fco Llanes MD PCP - General Family Medicine 07/14/20 01/28/24 Della Whaley DO [address] [facility] [address] [place] [address] PCP - General Family Medicine 01/30/24 Uche Haley MD [address] [facility] [address] [place] [address] Consulting Physician General Surgery 02/21/23 documented as of this encounter
--- OUTSIDE RECORDS SUMMARY | 2024-10-05 15:50 | XMS_ITS | Clinical Summary ---
Author Organization [facility] Address [address] [place] [address] Phone Care Team Providers Care Fur Trimming Machine Operator Name Role Phone Uche Haley MD Unavailable Della Whaley DO Primary Care Provider [phone] Allergies Active Allergy Reactions Criticality Noted Date Comments Nsaids Other (see Comments) Low 01/08/2019 Per pt report, her kidney dr encouraged her not to take NSAIDS. Medications Blood Glucose Monitoring Suppl (GLUCOCOM BLOOD GLUCOSE MONITOR) Device Use to check glucose 1 x daily 05/01/20 17 Active MAGnesium-Oxide 400 (241.3 Mg) MG Tablet 06/08/20 20 Active Glucose Blood (True Metrix Blood Glucose Test) Strip Needs to use to check blood sugar at least 4 times per day. May need to check up to 6 times a day as we are starting from scratch to regulate. She is insulin dependent. Doctor has not given refills and out of meds for 2 months. E11.4 200 Strip 3 07/21/20 20 Active Blood Glucose Monitoring Suppl Device Diagnosis: Diabetes type 2 Blood testing frequency: 4 times a day E11.9 1 Each 07/24/20 20 Active albuterol (ProAir HFA) 108 (90 Base) MCG/ACT Aerosol SolutionIndicat ions:Acute cough take 2 Puffs by inhalation every 4 hours as needed for Wheezing or Cough. 18 g 11/27/19 22 Active HumaLOG KwikPen 100 UNIT/ML Solution Pen-injectorInd ications:Type 2 diabetes mellitus without complication, without long-term current use of insulin (HCC) USE TO INJECT UNDER THE SKIN PER SLIDING SCALE, MAX 40 UNITS PER DAY 15 mL 2 05/23/20 23 Active busPIRone (BUSPAR) 15 MG TabletIndicatio ns:Anxiety Take 1 Tablet by mouth 3 times daily. 270 Tablet 2 09/26/19 24 Active glimepiride (AMARYL) 4 MG Tablet TAKE 1 TABLET BY MOUTH EVERY MORNING 90 Tablet 3 12/28/19 24 Active Additional Information Patient not taking.Reported on 01/30/2024 Lantus SoloStar 100 UNIT/ML Solution Pen-injectorInd ications:Type 2 diabetes mellitus without complication, without long-term current use of insulin ([facility]) ADMINISTER 15 UNITS UNDER THE SKIN EVERY NIGHT 15 mL 1 02/06/20 24 Active fenofibrate 160 MG Tablet TAKE 1 TABLET BY MOUTH DAILY 90 Tablet 2 03/05/20 24 Active pantoprazole (PROTONIX) 40 MG Tablet Delayed Response Take 1 Tablet by mouth daily. 90 Tablet 1 03/08/20 24 Active HYDROcodone-neela taminophen (NORCO) 5-325 MG TabletIndicatio ns:Low back pain with left-sided sciatica Take 1 Tablet by mouth every 8 hours as needed for Moderate or more severe pain. 12 Tablet 03/08/20 24 Active oxyCODONE-aceta minophen (Percocet) 5-325 MG TabletIndicatio ns:DDD (degenerative disc disease), lumbar,Bulging lumbar disc Take 1 Tablet by mouth every 6 hours as needed for Severe pain. 12 Tablet 03/16/20 24 Active predniSONE (DELTASONE) 20 MG Tablet Take 1 Tablet by mouth 2 times daily. 5 Tablet 03/16/20 24 Active levothyroxine (SYNTHROID) 125 MCG Tablet Take 1 Tablet by mouth daily. 90 Tablet 1 03/25/20 24 Active SaavnTouch Ultra Test Strip USE TO TEST FOUR TIMES DAILY 150 Strip 3 03/28/20 24 Active amitriptyline (ELAVIL) 25 MG TabletIndicatio ns:Chronic tension-type headache, not intractable TAKE 1 TABLET BY MOUTH EVERY NIGHT 90 Tablet 1 05/07/20 24 Active Insulin Pen Needle (TRUEplus 5-Bevel Pen [place]) 31G X 8 MM [facility] USE DIRECTED TO INJECT INSULIN 4 TIMES DAILY 100 Pen Needle 1 05/10/20 24 Active metFORMIN (GLUCOPHAGE) 500 MG Tablet TAKE 2 TABLETS BY MOUTH TWICE DAILY WITH MEALS 360 Tablet 11 07/09/20 24 Active fish oil-omega-3 fatty acids 1000 MG Capsule Take 2 Capsules by mouth daily. 60 Capsule 2 08/09/20 24 Active losartan (COZAAR) 25 MG Tablet TAKE 1 TABLET BY MOUTH EVERY DAY 90 Tablet 3 08/13/19 25 Active albuterol (ProAir HFA) 108 (90 Base) MCG/ACT Aerosol Solution take 2 Puffs by inhalation every 4 hours as needed for Wheezing. 8.5 g 6 08/19/19 25 Active semaglutide, 2 MG/DOSE, (Ozempic, 2 MG/DOSE,) 8 MG/3ML Solution Pen-injector 2 mg by Subcutaneous route once a week. 3 mL 2 09/10/19 25 Active cyclobenzaprine (FLEXERIL) 10 MG TabletIndicatio ns:Chronic tension-type headache, not intractable Take 1 Tablet by mouth 3 times daily as needed for Muscle spasms. 90 Tablet 2 09/22/19 25 Active zolpidem (AMBIEN) 10 MG TabletIndicatio ns:Insomnia, unspecified type Take 1 Tablet by mouth nightly as needed for Sleep. 30 Tablet 09/23/19 25 Active sertraline (ZOLOFT) 100 MG TabletIndicatio ns:Major depressive episode,Anxiety Take 1 Tablet by mouth daily. 90 Tablet 1 10/01/19 25 Active pregabalin (LYRICA) 25 MG CapsuleIndicati ons:Type 2 diabetes mellitus without complication, without long-term current use of insulin (HCC) Take 1 Capsule by mouth 3 times daily. 90 Capsule 10/01/19 25 Active cyclobenzaprine (FLEXERIL) 10 MG TabletIndicatio ns:Chronic tension-type headache, not intractable TAKE 1 TABLET BY MOUTH THREE TIMES DAILY NEEDED FOR MUSCLE SPASMS 90 Tablet 2 03/09/20 24 025 Discontin ued(Reord er) sertraline (ZOLOFT) 100 MG TabletIndicatio ns:Major depressive episode,Anxiety TAKE 1 TABLET BY MOUTH DAILY 90 Tablet 1 03/25/20 24 025 Discontin ued(Reord er) semaglutide, 2 MG/DOSE, (Ozempic, 2 MG/DOSE,) 8 MG/3ML Solution Pen-injector 2 mg by Subcutaneous route once a week. 3 mL 08/09/20 24 025 Discontin ued(Reord er) zolpidem (AMBIEN) 10 MG TabletIndicatio ns:Insomnia, unspecified type Take 1 Tablet by mouth nightly as needed for Sleep. 30 Tablet 08/09/20 24 025 Discontin ued(Reord er) pregabalin (LYRICA) 25 MG CapsuleIndicati ons:Type 2 diabetes mellitus without complication, without long-term current use of insulin (HCC) Take 1 Capsule by mouth 3 times daily. 90 Capsule 08/09/20 24 025 Discontin ued(Reord er) Active Problems Problem Noted Date Diagnosed Date Hepatic steatosis 01/13/2024 Mixed hyperlipidemia 09/22/2022 Gastroesophageal reflux disease 07/21/2020 Hypertriglyceridemia 04/07/2017 Asthma 06/17/2016 Overview (07/21/2020): Overview: Asthma Last Assessment & Plan: Uses inhaler as needed. She has only has to use it a few times this season. Diabetes mellitus 08/23/2014 Overview (07/21/2020): Overview: Diabetes Last Assessment & Plan: Will check hga1c today and results will be available for Dr. Daly, endocrinology when she establishes with him. Hypothyroidism 05/27/2014 Overview (07/21/2020): Overview: Hypothyroidism Last Assessment & Plan: Recheck TSH. Continue current medication Major depressive episode 05/27/2014 Overview (07/21/2020): Overview: Single major depressive episode Obsessive-compulsive disorder 05/27/2014 Overview (07/21/2020): Overview: Obsessive-compulsive disorder Last Assessment & Plan: Psychological condition is unchanged. Stable on current medications. Uses ativan a few times/week. Continue current treatment regimen. Psychological condition will be reassessed 6 months. Anxiety Encounters Date Type Department Care Team Description 09/30/2024 MyChart RX Renewal [facility] [address] [place] [address] Della Whaley, Medication Renewal Reviewed 09/30/2024 MyChart RX Renewal [facility] [address] [place] [phone] Fco Llanes MD Medication Renewal Reviewed 09/21/2024 MyChart RX Renewal [facility] [address] [place] [phone] Della Whaley, Medication Renewal Reviewed 09/21/2024 MyChart RX Renewal [facility] [address] [place] [phone] Fco Llanes MD Medication Renewal Reviewed 09/09/2024 MyChart RX Renewal [facility] [address] [place] [phone] Della Whaley, Medication Renewal Reviewed 08/13/2024 Refill [facility] [address] [place] [address] Lubna Duran PAC Medication Refill 08/06/2024 MyChart RX Renewal [facility] [address] [place] [address] Della Whaley, Medication Renewal Reviewed 08/06/2024 MyChart RX Renewal [facility] [address] [place] [address] Anant German MD Medication Renewal Reviewed 07/09/2024 [facility] [place] [phone] Fco Llanes MD Medication Refill from Last 3 Months Immunizations Immunization Administration Dates Next Due Covid-19, Mrna, Lnp-s, Pf, 1 00 Mcg Or 50 Mcg Dose (MODERNA) 11/14/2020,10/17/2020 DTAP VACCINE 12/26/1998, 6,02/17/1995,12/18,1994 HEP A/HEP B Combined Vaccine 07/21/2020 HIB Vaccine (PRP-T) 1994 Hepatitis A And Hepatitis B Vaccine 07/21/2020 Hepatitis B Vaccine 05/28/2019,04/27/2019 Hepatitis B Vaccine, Pediatric/adolescent 02/17/1995,1994,1994 Hib Vaccine,unspecified Formulation 11/21/1995,0 02/17/1995,1994 Hpv, Unspecified Formulation 07/21/2007,03/27/20 07,01/26/2000 Inactivated Polio Vaccine 12/26/1998,05/1995,1994,10/18 Influenza Vaccine 04/20/2015 Influenza Vaccine, Quadrivalent, PF 10/08/2022,05/17/2022,07/21/2020,04/29,06/13/2017 Influenza, Injectable, Quadrivalent 05/28/2019,1 09/11/2015 Influenza, Seasonal, Injecta ble, Undefined 06/13/2017 Influenza, Trivalent, Adjuvanted, PF 05/27/2014 MMR Vaccine 12/26/1998,11/21/1995 Meningococcal Vaccine 07/15/2006 Pneumococcal Vaccine Adult - 23 Valent 6 TDAP Vaccine 12/09/2018,07/11/2016,02/18/2006 Varicella Vaccine Live 03/30/2010,03/28/1997 Family History Medical History Relation Name Comments Stroke Maternal Aunt 1 Rajwinder Resulted in Stroke Maternal Aunt 2 Zee Complication s lead to Diabetes Maternal Grandfather Armando Type 2 Glaucoma Maternal Grandfather Armando Thyroid Disease Maternal Grandmother Harjeet Cancer Mother Jennifer Uterine/Ovarian Diabetes Mother Jennifer Type 1 High Cholesterol Mother Jennifer Kidney Disease Mother Jennifer Migraines Mother Jennifer Stroke Mother Jennifer Complications l ead to Thyroid Disease Mother Jennifer Alzheimer's Disease Paternal Grandmother Relation Name Status Comments Brother Alive Has heart condi ton Maternal Aunt 1 Rajwinder Maternal Aunt 2 Zee Maternal Grandfather Armando Alive Maternal Grandmother Harjeet Mother Jennifer Paternal Grandmother Alive Social History Tobacco Use Types Packs/Day Years [...] Sex Assigned at Female 07/10/2023 4:42 AM COLD STRIP FEEDER Legal Sex Female 3:32 PM COLD STRIP FEEDER Gender Identity Female 07/10/2023 4:42 AM COLD STRIP FEEDER Sexual Orientation Straight 07/10/2023 4: 42 AM COLD STRIP FEEDER Last Filed Vital Signs Vital Sign Reading Time Taken Comments Blood Pressure 111/68 03/16/2024 11:38 AM CDT Pulse 78 03/16/2024 11:45 AM CDT Temperature 37 C (98.6 F) 03/16/2024 9:06 AM CDT Respiratory Rate 16 03/16/2024 11:44 AM CDT Oxygen Saturation 96% 03/16/2024 11:45 AM CDT Inhaled Oxygen Concentration - - Weight 84.8 kg (187 lb) 03/16/2024 9:06 AM CDT Height 165.1 cm (5' 5 ) 03/16/2024 9:06 AM CDT Body Mass Index 31.12 03/16/2024 9:06 AM CDT Plan of Treatment Upcoming Encounters Date Type Department Care Team (Late st Contact Info) Description 10/11/2024 1:15 PM COLD STRIP FEEDER Office Visit [facility] [address] [place] [address] Della Whaley, DO 2 [facility] [place], [facility]. [address] [place] [id number] Health Maintenance Due Date Last Done Comments Pneumococcal Immunization Combined (2 of 2 - PCV) 07/11/2017 07/11/2016 Diabetes: Eye Exam 09/13/2023 09/13/2022 Diabetes: Foot Exam 09/20/2023 09/20/2022, 09/20/2022, 09/20/2022 Diabetes: Hemoglobin A1c 03/26/2024 024, 05/23/2023, 01/24/2023, Additional history exists Influenza Immunization (#1) 04/11/202405/13, 05/17/2022, 07/21/2020, Additional history exists Diabetes: Nephropathy Screening 03/16/2025 03/16/2024, 02/06/2024, 09/26/2023, Additional history exists Pap Smear 12/20/2025 12/20/2022 Cervical Cancer Screening (CCS) 12/21/2027 HPV/Cotest 12/21/2027 12/20/2022 DTaP/Tdap/Td Immunization (9 - Td or Tdap) 12/09/2028 12/09/2018, 07/11/2016, 02/18/2006, Additional history exists Respiratory Syncytial Virus (RSV) Immunization (Adult) (1 - 1-dose 75+ series) 2069 Meningococcal Immunization (ACWY) Aged Out 07/15/2006 No longer eligible based on patient's age to complete this topic Human Papillomavirus (HPV) Immunization Discontinued 07/21/2007, 03/27/2007, 01/26/2000 Hepatitis B Immunization Completed 020, 07/21/2020, 05/28/2019, Additional history exists SARS-COV-2 Immunization Discontinued 11/14/2020, 10/17 Hepatitis C Virus (HCV) Screening Completed 09/26/2023 Rotavirus Immunization Aged Out No lo nger eligible based on patient's age to complete this topic Procedures Procedure Name Priority Date/Time Associated Diagnosis Comments EXTERNAL NEUROSURGERY REFERRAL ENEDINA 09/03/2024 12:00 AM COLD STRIP FEEDER Spinal stenosis, unspecified spinal region NEUROLOGY PROCEDURE 07/16/2024 1 2:00 AM COLD STRIP FEEDER CMP (COMPREHENSIVE METABOLIC PANEL) STAT 03/16/2024 9:44 AM CDT HEPATITIS C ANTIBODY Routine 09/26/2023 1:56 PM COLD STRIP FEEDER Need for hepatitis C screening test POCT GLYCOSYLATED HEMOGLOBIN Routine 09/26/2023 1:36 PM COLD STRIP FEEDER Type 2 diabetes mellitus without complication, without long-term current use of insulin (HCC) HUMAN PAPILLOMA VIRUS (HPV) 12/20/2022 12:00 AM CDT PATHOLOGY CYTOLOGY CALCINE FURNACE TENDER 12/20/2022 12:00 AM CDT HM DILATED EYE EXAM 09/13/2022 1 2:00 AM COLD STRIP FEEDER from Last 3 Months or Most Recently Relevant to Health Maintenance Results * EXTERNAL NEUROSURGERY REFERRAL (09/03/2024 12:00 AM COLD STRIP FEEDER) 09/03/2024 us Della Whaley DO OUTPT REFERRALS EXT/INT Final Result SCAN * NEUROLOGY PROCEDURE (07/16/2024 12:00 AM COLD STRIP FEEDER) 07/16/2024 us Provider Scan GEN ORDERS Final Result SCAN * (ABNORMAL) CMP (03/16/2024 9:44 AM CDT) SODIUM 137 136 - 145 mmol/L 03/16/2024 10:27 AM CDT [facility] POTASSIUM 3.6 3.5 - 5.1 mmol/L 03/16/2024 10:27 AM CDT [facility] CHLORIDE 103 98 - 107 mmol/L 03/16/2024 10:27 AM CDT [facility] CO2, VENOUS 24 22 - 30 mmol/L 03/16/2024 10:27 AM CDT [facility] ANION GAP 13.6 <18.0 mmol/L 03/16/2024 10:27 AM CDT [facility] GLUCOSE 179(H) 70 - 99 mg/dL 03/16/2024 10:27 AM [facility] BUN 20(H) 5 - 18 mg/dL 03/16/2024 10:27 AM [facility] CREATININE, BLOOD 0.94 0.60 - 1.00 mg/dL 03/16/2024 10:27 AM [facility] BUN/CREATININE RATIO 21(H) 12 - 20 ratio 03/16/2024 10:27 AM [facility] TOTAL PROTEIN 6.8 6.3 - 8.2 g/dL 03/16/2024 10:27 AM [facility] ALBUMIN 4.1 3.5 - 5.0 g/dL 03/16/2024 10:27 AM [facility] A/G RATIO 1.5 1.0 - 2.2 03/16/2024 10:27 AM [facility] CALCIUM 9.4 8.7 - 10.5 mg/dL 03/16/2024 10:27 AM [facility] T BILI 0.3 0.2 - 1.2 mg/dL 03/16/2024 10:27 AM [facility] SGOT (AST) 22 5 - 34 U/L 03/16/2024 10:27 AM [facility] SGPT (ALT) 36 0 - 55 U/L 03/16/2024 10:27 AM [facility] ALKALINE PHOSPHATASE 38(L) 40 - 150 U/L 03/16/2024 10:27 AM [facility] GFR, ESTIMATED >60 >=60 03/16/2024 10:27 AM [facility] Comment: Creatinine Clearance is the preferred criteria for selecting drug dose adjustments in renally impaired patients. The GFR is provided as additional pertinent clinical information. GFR is reported in mL/min/1.73 sq m. Calculation based on the Chronic Kidney Disease Epidemiology Collaboration (CKD- EPI) equation refit without adjustment for race. GFR, EST. >60 >=60 024 10:27 AM [facility] GFR, EST. NONAFRICAN >60 >=60 03/16/2024 10:27 AM CDT [facility] Blood Venipuncture / Unknown 03/16/2024 9:44 AM CDT 03/16/2024 9:57 AM CDT Abdelrahman Vitale [facility] CHEMISTRY ORDERABLES Final Result Performing Organization Address City/[facility]/ZIP Co de Phone Number [facility] [address] [place] [address] * HEPATITIS C ANTIBODY (09/26/2023 1:56 PM COLD STRIP FEEDER) Pathologist [facility] hepatitis C antibody 0.07 <1 S/CO [facility] ARCH [id number] B 09/26/2023 10:48 PM COLD STRIP FEEDER [facility] Comment: Signal/Cutoff ratio < 0.79 is Nondetected Signal/Cutoff ratio 0.80-0.99 is Grayzone Signal/Cutoff ratio > 0.99 is Detected Supplemental assays are recommended if signal/cutoff ratio is >/=1.00. Signal/cutoff ratio result >/= 5.00 is 97% predictive of positivity for recombinant immunoblot assay (RIBA) and will be reported to the [place] Department of Public Health as required. Blood Venipuncture / Unknown 09/26/2023 1:56 PM COLD STRIP FEEDER 09/26/2023 2:09 PM COLD STRIP FEEDER Fco Llanes MD CHEMISTRY ORDERABLES Final Resul t Performing Organization Address City/[facility]/ZIP Co de Phone Number [facility] [address] [place] [address], [place] * (ABNORMAL) POCT GLYCOSYLATED HEMOGLOBIN (09/26/2023 1:36 PM COLD STRIP FEEDER) Pathologist [facility] HGB-A1C 6.7(A) 4 - 6 % Blood 09/26/2023 1:36 PM COLD STRIP FEEDER Fco Llanes MD POINT OF CARE TESTING (MANUAL) F inal Result * PATHOLOGY CYTOLOGY CALCINE FURNACE TENDER (12/20/2022 12:00 AM CDT) 12/20/2022 us Provider Scan PATHOLOGY/CYTOLOGY ORDERABLES Fi nal Result Performing Organization Address City/[facility] Co de Phone Number SCAN * HUMAN PAPILLOMA VIRUS (HPV) (12/20/2022 12:00 AM CDT) 12/20/2022 us Provider Scan LAB SEND OUTS Final Result Performing Organization Address City/[facility] de Phone Number SCAN * HM DILATED EYE EXAM (09/13/2022 12:00 AM COLD STRIP FEEDER) 09/13/2022 us Provider Scan PROCEDURE/MINOR SURGICAL ORDERAB LES Final Result Performing Organization Address City/[facility] de Phone Number SCAN from Last 3 Months or Most Recently Relevant to Health Maintenance Insurance MEDICAID [place] Care Teams Fur Trimming Machine Operator Relationship Specialty Start Date End Date Della Whaley DO [address] [address] PCP - General Family Medicine 01/30/24 Uche Haley MD [id number] [phone] Consulting Physician General Surgery 02/21/23
--- OUTSIDE RECORDS SUMMARY | 2024-10-05 15:50 | XMS_ITS ---
Author Organization [facility] Address [address] [facility] [address] [place] [address] Care Team Providers Care Home Health Aide Caregiver Name Role Phone Korin Beltran Unavailable [phone] zzzzMigration, zzzzProvider Unavailable Unav ailable REASON FOR VISIT [facility] Encounters Encounter Location Date Provider Diagnosis [facility] [address] [facility] [address] [place] [address] 06/01/2023 zzzzProvider zzzzMigration Plan Of Treatment No Information Progress Notes * Ana CARMICHAELOB:1995 (29 yo F)Acc No.[id number]:06/01/2023 Patient: Katy MERCER :1995 A ge:27 Y S ex:Female Address:[facility] [place] [facility] [address] Subjective: * Chief Complaints: * E MR-Yasir * Medical History: * Surgical History: * Hospitalization/Major Diagno stic Procedure: * Medications: Objective: * Vitals: * Physical Examination: Assessment: Plan: * Treatment: * Procedure Codes: * * Date:
--- OUTSIDE RECORDS SUMMARY | 2024-10-05 15:50 | XMS_ITS | Encounter Summary ---
Author Organization [facility] Address [address] [facility] [place] [address] Phone Care Team Providers Care Cooler Operator Name Role Phone Fco Llanes MD Primary Care Provider [phone] Uche Haley MD Unavailable [phone] Della Whaley DO Primary Care Provider [phone] Reason for Visit * Reason Comments Medication Refill Encounter Details Date Type Department Care Team (Late st Contact Info) Description 08/20/2022 Refill [facility] - [facility] [address] [place] [phone] Fco Llanes MD [address] [place] [address] Medication Refill Social History Tobacco Use Types [...] Sex Assigned at Female 07/10/2023 4:42 AM COMMERCIAL LINES INSURANCE AGENT Legal Sex Female 3:32 PM COMMERCIAL LINES INSURANCE AGENT Gender Identity Female 07/10/2023 4:42 AM COMMERCIAL LINES INSURANCE AGENT Sexual Orientation Straight 07/10/2023 4: 42 AM COMMERCIAL LINES INSURANCE AGENT documented as of this encounter Miscellaneous Notes * Telephone Encounter - Judy Vidal RN - 08/20/2022 8:13 AM COMMERCIAL LINES INSURANCE AGENT Refill requested too soon. ERCIAL LINES INSURANCE AGENT documented in this encounter Plan of Treatment Upcoming Encounters Date Type Department Care Team (Late st Contact Info) Description 10/11/2024 1:15 PM COMMERCIAL LINES INSURANCE AGENT [facility] [place] [address] [place] [address] Della Wh[address] DO [address] [facility] [address] [facility] [address] [place] [address] documented as of this encounter Visit Diagnoses Diagnosis Type 2 diabetes mellitus without complication, without long-term current use of insulin (HCC) documented in this encounter Additional Health Concerns Assessment Noted Time PHQ-9 Depression Total Score: 5 11/17/19 22 9:00 AM CDT documented as of this encounter Care Teams Cooler Operator Relationship Specialty Start Date End Date Fco Llanes MD PCP - General Family Medicine 07/14/20 01/28/24 Della Whaley DO [address] [facility] [address] [place] [address] PCP - General Family Medicine 01/30/24 Uche Haley MD [address] [address] Consulting Physician General Surgery 02/21/23 documented as of this encounter
== END 2024-10-05 13:47 | disposition home or self-care (01) ==
LOC: ANHBWCAUD 13:47
PROVIDERS: PCP Student in an Organized Health Care Education/Training Program; Visit Provider Student in an Organized Health Care Education/Training Program
DX: H91.90 Unspecified hearing loss, unspecified ear (principal); L65.9 Nonscarring hair loss, unspecified; R53.83 Other fatigue
CPT/HCPCS: 92557; 92567